=== PATIENT | male | born 1945 | race African-American/Black ===

== ENCOUNTER 2017-04-18 14:27 | Inpatient (IN) | payer MEDICARE, MEDICAID ==
[~2017-04-18] VITALS: Ht 170.2 cm; Wt 78.1 kg
[~2017-04-18 14:27] MED LIST: ATOR40TA70 PO; CITA20TA19 PO; CLON0.1T14 PO; COR12 PO; HYDR-3927 PO; Isosorb Dinit/Hydralazine Hcl PO; LEVO250T2 IV; LEVVL SUBCUT; LINA5TAB PO; PRO1 PO; TAMS0.4C31 PO; [UNRECOGNIZED DRUG - CODE]
[2017-04-18] MEDS ORDERED: SODIUM CHLORIDE 0.9% 1,000 ML IV ONE (14:52)
[2017-04-18] MEDS ORDERED: SODIUM CHLORIDE 0.9% 1000ML BAG (SEPSIS BOLUS) IV ONE (15:00)
[2017-04-18 15:14] LABS: CHLORIDE 113 mEq/L (98-107)
[2017-04-18 15:15] LABS: PROTHROMBIN TIME 10.2 sec (9.4-11.6)
[2017-04-18 15:20] LABS: RED BLOOD CELL COUNT 3.83 mill/uL (4.7-6.1)
[2017-04-18 15:21] LABS: BASOPHILS % 0.7 % (0.0-2.0); EOSINOPHILS % 1.9 % (0.0-5.0); HEMATOCRIT. 34.4 % (42.0-52.0); HEMOGLOBIN. 11.4 g/dL (14.0-18.0); LYMPHOCYTES % 11.5 % (20.0-50.0); MEAN CORPUSCULAR HEMOGLOBIN 29.8 pg (28.0-32.0); MEAN CORPUSCULAR VOLUME 89.7 fL (80.0-94.0); MEAN PLATELET VOLUME 9.4 fl (7.4-10.4); MONOCYTES % 8.9 % (2.0-8.0); PLATELET 161 x1000/uL (130-400); RED CELL DISTRIBUTION WIDTH 13.8 % (11.6-14.6)
[2017-04-18 15:22] LABS: CARBON DIOXIDE 18 mEq/L (21-32)
[2017-04-18] MEDS ORDERED: ACETAMINOPHEN 325MG TABLET PO ONE (15:45)
[2017-04-18 18:23] LABS: CLARITY URINE CLEAR (CLEAR); COLOR URINE YELLOW (YELLOW); GLUCOSE URINE 1+ (NEGATIVE); KETONES URINE NEGATIVE (NEGATIVE); LEUKOCYTE ESTERASE URINE 1+ (NEGATIVE); NITRITE URINE NEGATIVE (NEGATIVE); OCCULT BLOOD URINE 1+ (NEGATIVE); PROTEIN URINE TRACE (NEGATIVE); SPECIFIC GRAVITY URINE 1.014 (1.005-1.030)
[2017-04-18] MEDS ORDERED: CEFTRIAXONE 1 G PREMIX 50 ML IV ONE (19:30)
[2017-04-18 21:00] VITALS: BP 135/85
[2017-04-18 21:44] VITALS: BP 129/76
[2017-04-18 22:00] VITALS: BP 120/62
[2017-04-18] MEDS ORDERED: FOLIC ACID 1 MG, THIAMINE HCL 100 MG, MVI, ADULT NO.1 10 ML in SODIUM CHLORIDE 0.45% 1,... IV NR ×4 (22:45)
[2017-04-18] MEDS ORDERED: DEXTROSE 50% WATER 50ML SYRINGE IV PRN (22:45)
[2017-04-18] MEDS: FUROSEMIDE 20MG/2ML VIAL IVP SCH (23:43)
[2017-04-19] VITALS (12 sets, daily range): BP systolic 99–141; BP diastolic 56–81
[2017-04-19] MEDS: NIFEDIPINE 10MG CAPSULE PO SCH ×3 (06:08→22:00)
[2017-04-19] MEDS: BLOOD SUGAR DIAGNOSTIC STRIP TEST SCH ×4 (06:08→21:06)
[2017-04-19 07:03] LABS: HEMATOCRIT 34.8 % (42.0-52.0); HEMOGLOBIN 11.5 g/dL (14.0-18.0); MEAN CORPUSCULAR HEMOGLOBIN 29.9 pg (28.0-32.0); MEAN CORPUSCULAR VOLUME 90.4 fL (80.0-94.0); PLATELET 147 x1000/uL (130-400); RED BLOOD CELL COUNT 3.85 mill/uL (4.7-6.1); RED CELL DISTRIBUTION WIDTH 13.8 % (11.6-14.6)
[2017-04-19 07:39] LABS: CHLORIDE 113 mEq/L (98-107)
[2017-04-19 08:00] LABS: CARBON DIOXIDE 19 mEq/L (21-32)
[2017-04-19] MEDS ORDERED: DOCUSATE SODIUM 100MG CAPSULE PO PRN (08:30)
[2017-04-19] MEDS ORDERED: ENOXAPARIN 40MG/0.4ML SYR SUBCUT SCH (08:30)
[2017-04-19] MEDS ORDERED: MAGNESIUM/ALUMINUM HYDROXIDE/SIMETHICONE 30ML UDC PO PRN (08:30)
[2017-04-19] MEDS ORDERED: ONDANSETRON HCL 4MG/2ML VIAL IV PRN (08:30)
[2017-04-19] MEDS: FAMOTIDINE 20MG/2ML VIAL IV SCH (08:53)
[2017-04-19] MEDS: ISOSORB DINIT/HYDRALAZINE HCL 20/37.5MG TABLET PO SCH ×2 (08:53→21:00)
[2017-04-19] MEDS: FUROSEMIDE 20MG/2ML VIAL IVP SCH (08:53)
[2017-04-19] MEDS: TAMSULOSIN HCL 0.4MG SR CAPSULE PO SCH (08:54)
[2017-04-19] MEDS: CARVEDILOL 12.5MG TABLET PO SCH ×2 (08:54→21:00)
[2017-04-19] MEDS: DOCUSATE SODIUM 100MG CAPSULE PO SCH ×2 (08:54→17:10)
[2017-04-19] MEDS: LINAGLIPTIN 5MG TABLET PO SCH (08:54)
[2017-04-19] MEDS: ENOXAPARIN 30MG/0.3ML SYR SUBCUT SCH (08:55)
[2017-04-19] MEDS: INSULIN LISPRO 100 UNITS/ML SUBCUT SCH ×4 (08:57→21:07)
[2017-04-19] MEDS ORDERED: PANTOPRAZOLE SODIUM 40 MG/VIAL IV SCH (09:00)
[2017-04-19] MEDS ORDERED: ENOXAPARIN 30MG/0.3ML SYR SUBCUT SCH (09:00)
[2017-04-19] MEDS: CITALOPRAM HYDROBROMIDE 20MG TABLET PO SCH (11:36)
[2017-04-19] MEDS: AMMONIUM LACTATE 12% LOTION 240ML TOP SCH ×2 (11:37→17:10)
[2017-04-19 16:12] LABS: CREATINE KINASE MB FRACTION 2.4 ng/mL (0.5-3.6); TROPONIN I 0.07 ng/mL (0.00-0.04)
[2017-04-19] MEDS ORDERED: REGADENOSON 0.4 MG/5 ML IV NR (18:15)
[2017-04-19] MEDS: ATORVASTATIN CALCIUM 40MG TABLET PO SCH (21:06)
[2017-04-19] MEDS: INSULIN DETEMIR UD 100 UNITS/ML SYR SUBCUT SCH (21:08)
[2017-04-20] VITALS (23 sets, daily range): BP systolic 70–140; BP diastolic 47–80
[2017-04-20 00:26] LABS: TROPONIN I 0.04 ng/mL (0.00-0.04)
[2017-04-20 00:27] LABS: CREATINE KINASE MB FRACTION 1.9 ng/mL (0.5-3.6)
[2017-04-20] MEDS: BLOOD SUGAR DIAGNOSTIC STRIP TEST SCH ×4 (06:19→21:00)
[2017-04-20] MEDS: NIFEDIPINE 10MG CAPSULE PO SCH ×3 (06:19→21:03)
[2017-04-20] MEDS: INSULIN LISPRO 100 UNITS/ML SUBCUT SCH ×4 (07:20→21:29)
[2017-04-20 07:23] LABS: PROTHROMBIN TIME 10.7 sec (9.4-11.6)
[2017-04-20 07:39] LABS: CARBON DIOXIDE 23 mEq/L (21-32); CHLORIDE 111 mEq/L (98-107)
[2017-04-20 07:59] LABS: BASOPHILS % 0.8 % (0.0-2.0); EOSINOPHILS % 3.3 % (0.0-5.0); HEMATOCRIT. 32.1 % (42.0-52.0); HEMOGLOBIN. 10.7 g/dL (14.0-18.0); LYMPHOCYTES % 15.6 % (20.0-50.0); MEAN CORPUSCULAR HEMOGLOBIN 30.1 pg (28.0-32.0); MEAN CORPUSCULAR VOLUME 90.3 fL (80.0-94.0); MEAN PLATELET VOLUME 10.2 fl (7.4-10.4); MONOCYTES % 10.7 % (2.0-8.0); NEUTROPHILS % 69.6 % (40.0-76.0); PLATELET 160 x1000/uL (130-400); RED BLOOD CELL COUNT 3.56 mill/uL (4.7-6.1)
[2017-04-20] MEDS ORDERED: REGADENOSON 0.4 MG/5 ML IV ONE (08:58)
[2017-04-20] MEDS: AMMONIUM LACTATE 12% LOTION 240ML TOP SCH ×2 (09:00→17:12)
[2017-04-20] MEDS: FAMOTIDINE 20MG/2ML VIAL IV SCH (09:00)
[2017-04-20] MEDS: DOCUSATE SODIUM 100MG CAPSULE PO SCH ×2 (09:00→17:00)
[2017-04-20] MEDS: CITALOPRAM HYDROBROMIDE 20MG TABLET PO SCH (09:00)
[2017-04-20] MEDS: CARVEDILOL 12.5MG TABLET PO SCH ×2 (09:00→21:00)
[2017-04-20] MEDS: TAMSULOSIN HCL 0.4MG SR CAPSULE PO SCH (09:00)
[2017-04-20] MEDS: ISOSORB DINIT/HYDRALAZINE HCL 20/37.5MG TABLET PO SCH ×2 (09:00→21:00)
[2017-04-20] MEDS: ENOXAPARIN 30MG/0.3ML SYR SUBCUT SCH (09:00)
[2017-04-20] MEDS: LINAGLIPTIN 5MG TABLET PO SCH (09:00)
[2017-04-20] MEDS: FUROSEMIDE 20MG/2ML VIAL IVP SCH (09:00)
[2017-04-20] MEDS ORDERED: MANNITOL 12.5G (25%) VIAL 50ML IV NR (11:45)
[2017-04-20 12:48] LABS: HEPATITIS B SURFACE ANTIGEN NEGATIVE
[2017-04-20] MEDS ORDERED: CEFAZOLIN 1000MG PREMIX 50 ML IV ONE ×2 (13:13→13:15)
[2017-04-20] MEDS ORDERED: LIDOCAINE HCL 1% 20ML VIAL (Pyxis) INJ ONE (13:13)
[2017-04-20] MEDS ORDERED: SODIUM BICARBONATE 4% (2.4MEQ) 5ML VIAL IV ONE (13:13)
[2017-04-20] MEDS ORDERED: FENTANYL CITRATE/PF 50MCG/ML 2ML VIAL ONE (14:03)
[2017-04-20] MEDS: SODIUM CHLORIDE 0.9% 1,000 ML IV SCH (20:51)
[2017-04-20] MEDS: ATORVASTATIN CALCIUM 40MG TABLET PO SCH (21:28)
[2017-04-20] MEDS: INSULIN DETEMIR UD 100 UNITS/ML SYR SUBCUT SCH (22:27)
[2017-04-21] VITALS (13 sets, daily range): BP systolic 92–130; BP diastolic 50–80
[2017-04-21] MEDS ORDERED: AMPICILLIN SOD/SULBACTAM NA 1.5 G in SODIUM CHLORIDE 0.9% 50 ML IV SCH (00:15)
[2017-04-21] MEDS: AMPICILLIN SOD IV SCH (02:05)
[2017-04-21] MEDS: SULBACTAM NA IV SCH (02:05)
[2017-04-21] MEDS: SODIUM CHLORIDE 0.9% IV SCH (02:05)
[2017-04-21] MEDS: ACETAMINOPHEN 325MG TABLET PO PRN (05:22)
[2017-04-21] MEDS: SODIUM CHLORIDE 0.9% 1,000 ML IV SCH ×2 (06:39→14:46)
[2017-04-21 06:40] LABS: PROTHROMBIN TIME 10.5 sec (9.4-11.6)
[2017-04-21] MEDS: NIFEDIPINE 10MG CAPSULE PO SCH (06:40)
[2017-04-21] MEDS: BLOOD SUGAR DIAGNOSTIC STRIP TEST SCH ×4 (06:40→20:39)
[2017-04-21] MEDS: INSULIN LISPRO 100 UNITS/ML SUBCUT SCH ×7 (06:50→20:39)
[2017-04-21 07:02] LABS: BASOPHILS % 0.7 % (0.0-2.0); EOSINOPHILS % 2.3 % (0.0-5.0); HEMATOCRIT. 33.6 % (42.0-52.0); HEMOGLOBIN. 11.2 g/dL (14.0-18.0); LYMPHOCYTES % 13.6 % (20.0-50.0); MEAN CORPUSCULAR HEMOGLOBIN 29.8 pg (28.0-32.0); MEAN CORPUSCULAR VOLUME 89.6 fL (80.0-94.0); MEAN PLATELET VOLUME 10.1 fl (7.4-10.4); MONOCYTES % 8.7 % (2.0-8.0); NEUTROPHILS % 74.7 % (40.0-76.0); PLATELET 177 x1000/uL (130-400); RED BLOOD CELL COUNT 3.75 mill/uL (4.7-6.1); RED CELL DISTRIBUTION WIDTH 13.8 % (11.6-14.6)
[2017-04-21 07:18] LABS: CHLORIDE 111 mEq/L (98-107)
[2017-04-21 07:30] LABS: CARBON DIOXIDE 20 mEq/L (21-32)
[2017-04-21] MEDS: ISOSORB DINIT/HYDRALAZINE HCL 20/37.5MG TABLET PO SCH ×2 (09:00→21:17)
[2017-04-21] MEDS: FAMOTIDINE 20MG/2ML VIAL IV SCH (09:20)
[2017-04-21] MEDS: CARVEDILOL 12.5MG TABLET PO SCH ×2 (09:21→21:00)
[2017-04-21] MEDS: TAMSULOSIN HCL 0.4MG SR CAPSULE PO SCH (09:22)
[2017-04-21] MEDS: CITALOPRAM HYDROBROMIDE 20MG TABLET PO SCH (09:22)
[2017-04-21] MEDS: FOLIC ACID/VITAMIN B COMP W-C TABLET PO SCH (09:23)
[2017-04-21] MEDS: LINAGLIPTIN 5MG TABLET PO SCH (09:23)
[2017-04-21] MEDS: DOCUSATE SODIUM 100MG CAPSULE PO SCH ×2 (09:23→17:05)
[2017-04-21] MEDS: ENOXAPARIN 30MG/0.3ML SYR SUBCUT SCH (09:24)
[2017-04-21] MEDS: AMMONIUM LACTATE 12% LOTION 240ML TOP SCH ×2 (09:25→17:07)
[2017-04-21] MEDS: ATORVASTATIN CALCIUM 40MG TABLET PO SCH (20:05)
[2017-04-21] MEDS: INSULIN DETEMIR UD 100 UNITS/ML SYR SUBCUT SCH (21:18)
[2017-04-22] VITALS (12 sets, daily range): BP systolic 92–142; BP diastolic 48–88
[2017-04-22] MEDS: SULBACTAM NA IV SCH (02:22)
[2017-04-22] MEDS: AMPICILLIN SOD IV SCH (02:22)
[2017-04-22] MEDS: SODIUM CHLORIDE 0.9% IV SCH (02:22)
[2017-04-22] MEDS: BLOOD SUGAR DIAGNOSTIC STRIP TEST SCH ×4 (06:19→20:52)
[2017-04-22] MEDS: INSULIN LISPRO 100 UNITS/ML SUBCUT SCH ×8 (06:19→20:52)
[2017-04-22] MEDS: SODIUM CHLORIDE 0.9% 1,000 ML IV SCH ×2 (06:22→09:20)
[2017-04-22] MEDS: HYDROCODONE/ACETAMINOPHEN 5/325MG TABLET PO PRN (06:23)
[2017-04-22 06:53] LABS: INR 1.1
[2017-04-22 07:00] LABS: BASOPHILS % 0.4 % (0.0-2.0); EOSINOPHILS % 1.8 % (0.0-5.0); HEMATOCRIT. 28.9 % (42.0-52.0); HEMOGLOBIN. 9.6 g/dL (14.0-18.0); LYMPHOCYTES % 8.3 % (20.0-50.0); MEAN CORPUSCULAR HEMOGLOBIN 29.9 pg (28.0-32.0); MEAN CORPUSCULAR VOLUME 90.1 fL (80.0-94.0); MEAN PLATELET VOLUME 9.4 fl (7.4-10.4); MONOCYTES % 7.7 % (2.0-8.0); NEUTROPHILS % 81.8 % (40.0-76.0); PLATELET 151 x1000/uL (130-400); RED CELL DISTRIBUTION WIDTH 13.9 % (11.6-14.6)
[2017-04-22 07:39] LABS: CHLORIDE 118 mEq/L (98-107)
[2017-04-22 07:48] LABS: CARBON DIOXIDE 18 mEq/L (21-32)
[2017-04-22] MEDS: CITALOPRAM HYDROBROMIDE 20MG TABLET PO SCH (08:14)
[2017-04-22] MEDS: FOLIC ACID/VITAMIN B COMP W-C TABLET PO SCH (08:14)
[2017-04-22] MEDS: LINAGLIPTIN 5MG TABLET PO SCH (08:14)
[2017-04-22] MEDS: FAMOTIDINE 20MG/2ML VIAL IV SCH (08:14)
[2017-04-22] MEDS: AMMONIUM LACTATE 12% LOTION 240ML TOP SCH ×2 (08:15→16:31)
[2017-04-22] MEDS: CARVEDILOL 12.5MG TABLET PO SCH ×2 (08:17→20:52)
[2017-04-22] MEDS: ISOSORB DINIT/HYDRALAZINE HCL 20/37.5MG TABLET PO SCH ×2 (08:17→20:52)
[2017-04-22] MEDS: DOCUSATE SODIUM 100MG CAPSULE PO SCH ×2 (08:17→17:41)
[2017-04-22] MEDS: TAMSULOSIN HCL 0.4MG SR CAPSULE PO SCH (09:02)
[2017-04-22] MEDS: ENOXAPARIN 30MG/0.3ML SYR SUBCUT SCH (09:02)
[2017-04-22] MEDS: ATORVASTATIN CALCIUM 40MG TABLET PO SCH (20:51)
[2017-04-22] MEDS: ACETAMINOPHEN 325MG TABLET PO PRN (20:51)
[2017-04-22] MEDS: INSULIN DETEMIR UD 100 UNITS/ML SYR SUBCUT SCH (22:17)
[2017-04-23] VITALS (13 sets, daily range): BP systolic 88–149; BP diastolic 49–75
[2017-04-23] MEDS: SODIUM CHLORIDE 0.9% IV SCH (01:09)
[2017-04-23] MEDS: AMPICILLIN SOD IV SCH (01:09)
[2017-04-23] MEDS: SULBACTAM NA IV SCH (01:09)
[2017-04-23] MEDS: BLOOD SUGAR DIAGNOSTIC STRIP TEST SCH ×4 (06:27→21:43)
[2017-04-23] MEDS: INSULIN LISPRO 100 UNITS/ML SUBCUT SCH ×7 (06:28→21:42)
[2017-04-23 06:40] LABS: INR 1.1; PROTHROMBIN TIME 11.7 sec (9.4-11.6)
[2017-04-23 07:02] LABS: BASOPHILS % 0.3 % (0.0-2.0); EOSINOPHILS % 2.3 % (0.0-5.0); HEMATOCRIT. 25.6 % (42.0-52.0); HEMOGLOBIN. 8.5 g/dL (14.0-18.0); LYMPHOCYTES % 9.7 % (20.0-50.0); MEAN CORPUSCULAR HEMOGLOBIN 29.8 pg (28.0-32.0); MEAN CORPUSCULAR VOLUME 90.1 fL (80.0-94.0); MEAN PLATELET VOLUME 9.6 fl (7.4-10.4); MONOCYTES % 10.6 % (2.0-8.0); NEUTROPHILS % 77.1 % (40.0-76.0); PLATELET 138 x1000/uL (130-400); RED BLOOD CELL COUNT 2.85 mill/uL (4.7-6.1); RED CELL DISTRIBUTION WIDTH 13.6 % (11.6-14.6)
[2017-04-23 07:50] LABS: CARBON DIOXIDE 30 mEq/L (21-32); CHLORIDE 108 mEq/L (98-107)
[2017-04-23] MEDS: CITALOPRAM HYDROBROMIDE 20MG TABLET PO SCH (08:12)
[2017-04-23] MEDS: TAMSULOSIN HCL 0.4MG SR CAPSULE PO SCH (08:12)
[2017-04-23] MEDS: FAMOTIDINE 20MG/2ML VIAL IV SCH (08:12)
[2017-04-23] MEDS: AMMONIUM LACTATE 12% LOTION 240ML TOP SCH ×2 (08:13→17:12)
[2017-04-23] MEDS: LINAGLIPTIN 5MG TABLET PO SCH (08:13)
[2017-04-23] MEDS: DOCUSATE SODIUM 100MG CAPSULE PO SCH ×2 (08:13→17:10)
[2017-04-23] MEDS: ENOXAPARIN 30MG/0.3ML SYR SUBCUT SCH (08:13)
[2017-04-23] MEDS: FOLIC ACID/VITAMIN B COMP W-C TABLET PO SCH (08:13)
[2017-04-23] MEDS: CARVEDILOL 12.5MG TABLET PO SCH ×2 (09:00→21:43)
[2017-04-23] MEDS: ISOSORB DINIT/HYDRALAZINE HCL 20/37.5MG TABLET PO SCH ×2 (09:00→21:43)
[2017-04-23] MEDS: HYDROCODONE/ACETAMINOPHEN 5/325MG TABLET PO PRN (19:50)
[2017-04-23] MEDS ORDERED: EPOETIN ALFA 4000UNITS/ML VIAL SUBCUT SCH (21:00)
[2017-04-23] MEDS: INSULIN DETEMIR UD 100 UNITS/ML SYR SUBCUT SCH (21:41)
[2017-04-23] MEDS: ATORVASTATIN CALCIUM 40MG TABLET PO SCH (21:42)
[2017-04-24] VITALS (15 sets, daily range): BP systolic 81–157; BP diastolic 45–90
[2017-04-24] MEDS: AMPICILLIN SOD IV SCH (01:29)
[2017-04-24] MEDS: SULBACTAM NA IV SCH (01:29)
[2017-04-24] MEDS: SODIUM CHLORIDE 0.9% IV SCH (01:29)
[2017-04-24 05:44] LABS: BASOPHILS % 0.3 % (0.0-2.0); EOSINOPHILS % 3.4 % (0.0-5.0); HEMATOCRIT. 27.7 % (42.0-52.0); HEMOGLOBIN. 9.1 g/dL (14.0-18.0); LYMPHOCYTES % 10.1 % (20.0-50.0); MEAN CORPUSCULAR HEMOGLOBIN 29.8 pg (28.0-32.0); MEAN CORPUSCULAR VOLUME 90.5 fL (80.0-94.0); MONOCYTES % 12.3 % (2.0-8.0); NEUTROPHILS % 73.9 % (40.0-76.0); PLATELET 157 x1000/uL (130-400); RED BLOOD CELL COUNT 3.06 mill/uL (4.7-6.1); RED CELL DISTRIBUTION WIDTH 13.7 % (11.6-14.6)
[2017-04-24] MEDS: BLOOD SUGAR DIAGNOSTIC STRIP TEST SCH ×4 (06:54→21:13)
[2017-04-24] MEDS: INSULIN LISPRO 100 UNITS/ML SUBCUT SCH ×7 (06:55→21:24)
[2017-04-24] MEDS: FOLIC ACID/VITAMIN B COMP W-C TABLET PO SCH (08:50)
[2017-04-24] MEDS: LINAGLIPTIN 5MG TABLET PO SCH (08:50)
[2017-04-24] MEDS: ISOSORB DINIT/HYDRALAZINE HCL 20/37.5MG TABLET PO SCH ×2 (08:50→21:00)
[2017-04-24] MEDS: CARVEDILOL 12.5MG TABLET PO SCH ×2 (08:50→21:00)
[2017-04-24] MEDS: AMMONIUM LACTATE 12% LOTION 240ML TOP SCH ×2 (08:50→17:10)
[2017-04-24] MEDS: TAMSULOSIN HCL 0.4MG SR CAPSULE PO SCH (08:51)
[2017-04-24] MEDS: FAMOTIDINE 20MG/2ML VIAL IV SCH (08:51)
[2017-04-24] MEDS: ENOXAPARIN 30MG/0.3ML SYR SUBCUT SCH (08:51)
[2017-04-24] MEDS: CITALOPRAM HYDROBROMIDE 20MG TABLET PO SCH (08:51)
[2017-04-24] MEDS: DOCUSATE SODIUM 100MG CAPSULE PO SCH ×2 (08:51→17:16)
[2017-04-24] MEDS: ATORVASTATIN CALCIUM 40MG TABLET PO SCH (21:25)
[2017-04-24] MEDS: INSULIN DETEMIR UD 100 UNITS/ML SYR SUBCUT SCH (21:25)
[2017-04-25] VITALS (12 sets, daily range): BP systolic 114–157; BP diastolic 58–96
[2017-04-25] MEDS: AMPICILLIN SOD IV SCH (01:59)
[2017-04-25] MEDS: SODIUM CHLORIDE 0.9% IV SCH (01:59)
[2017-04-25] MEDS: SULBACTAM NA IV SCH (01:59)
[2017-04-25] MEDS: BLOOD SUGAR DIAGNOSTIC STRIP TEST SCH ×3 (06:46→17:06)
[2017-04-25] MEDS: INSULIN LISPRO 100 UNITS/ML SUBCUT SCH ×5 (06:52→17:06)
[2017-04-25 07:19] LABS: BASOPHILS % 0.4 % (0.0-2.0); EOSINOPHILS % 3.7 % (0.0-5.0); HEMATOCRIT. 27.5 % (42.0-52.0); HEMOGLOBIN. 9.1 g/dL (14.0-18.0); MEAN CORPUSCULAR HEMOGLOBIN 29.9 pg (28.0-32.0); MEAN CORPUSCULAR VOLUME 90.7 fL (80.0-94.0); MONOCYTES % 13.8 % (2.0-8.0); NEUTROPHILS % 67.1 % (40.0-76.0); PLATELET 177 x1000/uL (130-400); RED BLOOD CELL COUNT 3.03 mill/uL (4.7-6.1); RED CELL DISTRIBUTION WIDTH 13.4 % (11.6-14.6)
[2017-04-25] MEDS: CARVEDILOL 12.5MG TABLET PO SCH ×2 (09:00→13:09)
[2017-04-25] MEDS: ISOSORB DINIT/HYDRALAZINE HCL 20/37.5MG TABLET PO SCH (09:00)
[2017-04-25] MEDS: AMMONIUM LACTATE 12% LOTION 240ML TOP SCH ×2 (11:25→16:36)
[2017-04-25] MEDS: FAMOTIDINE 20MG/2ML VIAL IV SCH (11:26)
[2017-04-25] MEDS: CITALOPRAM HYDROBROMIDE 20MG TABLET PO SCH (11:26)
[2017-04-25] MEDS: LINAGLIPTIN 5MG TABLET PO SCH (11:26)
[2017-04-25] MEDS: FOLIC ACID/VITAMIN B COMP W-C TABLET PO SCH (11:26)
[2017-04-25] MEDS: DOCUSATE SODIUM 100MG CAPSULE PO SCH ×2 (11:26→16:36)
[2017-04-25] MEDS: ENOXAPARIN 30MG/0.3ML SYR SUBCUT SCH (11:27)
[2017-04-25] MEDS: TAMSULOSIN HCL 0.4MG SR CAPSULE PO SCH (11:27)
[2017-05-31] MEDS ORDERED: METR250T PO (17:17)
== END 2017-04-25 17:07 | DRG 673 ==
LOC: ER 14:29 → ENRESERV 16:18 → UNDOADMIN 19:46 → 3WST 19:46 → EDBEDREQTM 19:56 → EDBEDREQ 19:56 → EDBEDREQSVC 19:56 → 3WST 04-20 13:16
PROVIDERS: ADMIT Internal Medicine; ATTEND Internal Medicine
PROC: 02HV33Z Insertion of Infusion Device into Superior Vena Cava, Percutaneous Approach (ICD-10-PCS; principal; 2017-04-20)
PROC: B5181ZA Fluoroscopy of Superior Vena Cava using Low Osmolar Contrast, Guidance (ICD-10-PCS; 2017-04-20)
PROC: B548ZZA Ultrasonography of Superior Vena Cava, Guidance (ICD-10-PCS; 2017-04-20)
PROC: 5A1D60Z (ICD-10-PCS; 2017-04-22)
PROC: 0JH63XZ Insertion of Tunneled Vascular Access Device into Chest Subcutaneous Tissue and Fascia, Percutaneous Approach (ICD-10-PCS; 2017-04-22)
DX: N17.9 Acute kidney failure, unspecified (principal); I50.23 Acute on chronic systolic (congestive) heart failure; E46 Unspecified protein-calorie malnutrition; F03.90 Unspecified dementia, unspecified severity, without behavioral disturbance, psychotic disturbance, mood disturbance, and anxiety; I13.2 Hypertensive heart and chronic kidney disease with heart failure and with stage 5 chronic kidney disease, or end stage renal disease; I69.351 Hemiplegia and hemiparesis following cerebral infarction affecting right dominant side; N18.6 End stage renal disease; E11.22 Type 2 diabetes mellitus with diabetic chronic kidney disease; D64.9 Anemia, unspecified; E11.65 Type 2 diabetes mellitus with hyperglycemia; I87.8 Other specified disorders of veins; E11.649 Type 2 diabetes mellitus with hypoglycemia without coma; E78.5 Hyperlipidemia, unspecified; G40.909 Epilepsy, unspecified, not intractable, without status epilepticus; G89.29 Other chronic pain; G90.8 Other disorders of autonomic nervous system; E11.40 Type 2 diabetes mellitus with diabetic neuropathy, unspecified; F41.9 Anxiety disorder, unspecified; I25.10 Atherosclerotic heart disease of native coronary artery without angina pectoris; K21.9 Gastro-esophageal reflux disease without esophagitis; M19.90 Unspecified osteoarthritis, unspecified site; N40.0 Benign prostatic hyperplasia without lower urinary tract symptoms; I69.322 Dysarthria following cerebral infarction; Z99.2 Dependence on renal dialysis; Z85.528 Personal history of other malignant neoplasm of kidney; Z87.891 Personal history of nicotine dependence; Z91.19 Patient's noncompliance with other medical treatment and regimen; Z98.1 Arthrodesis status; Z88.6 Allergy status to analgesic agent; Z88.8 Allergy status to other drugs, medicaments and biological substances; Z79.4 Long term (current) use of insulin; Z79.2 Long term (current) use of antibiotics; Z79.899 Other long term (current) drug therapy; Z83.3 Family history of diabetes mellitus; Z82.49 Family history of ischemic heart disease and other diseases of the circulatory system; Z82.61 Family history of arthritis
CPT/HCPCS: 36415; 36558; 70551; 71010; 76700; 76937; 77001; 78452; 80048; 80053; 81001; 82553; 82962; 83605; 83690; 83970; 84443; 84484; 85025; 85027; 85610; 85730; 86803; 87040; 87086; 87340; 93005; 93017; 93306; 93970; 96360; 96361; 97116; 97162; 97166; 97530; 99285; A9500; C1750; J0295; J0690; J0696; J1642; J1650; J1815; J1940; J2150; J2405; J2785; J3010; J3411; J3490; J7030; J7050

== ENCOUNTER 2017-04-25 17:15 | Inpatient (IN) | payer MEDICARE, MEDICAID ==
[~2017-04-25] VITALS: Ht 170.2 cm; Wt 79.8 kg
[2017-04-25 17:30] VITALS: BP 117/78
[2017-04-25] MEDS ORDERED: ONDANSETRON HCL 4MG TABLET PO PRN (20:00)
[2017-04-25] MEDS ORDERED: DEXTROSE 50% WATER 50ML SYRINGE IV PRN ×2 (20:00)
[2017-04-25] MEDS ORDERED: DOCUSATE SODIUM 100MG CAPSULE PO PRN (20:00)
[2017-04-25] MEDS: BLOOD SUGAR DIAGNOSTIC STRIP TEST SCH (21:00)
[2017-04-25] MEDS: INSULIN LISPRO 100 UNITS/ML SUBCUT SCH (21:00)
[2017-04-25] MEDS ORDERED: BLOOD SUGAR DIAGNOSTIC STRIP TEST SCH (21:00)
[2017-04-25 22:00] VITALS: BP 117/78
[2017-04-25] MEDS ORDERED: INSULIN DETEMIR UD 100 UNITS/ML SYR SUBCUT SCH (22:00)
[2017-04-25] MEDS: ATORVASTATIN CALCIUM 40MG TABLET PO SCH (23:16)
[2017-04-25] MEDS: CARVEDILOL 12.5MG TABLET PO SCH (23:16)
[2017-04-25] MEDS: ISOSORB DINIT/HYDRALAZINE HCL 20/37.5MG TABLET PO SCH (23:35)
[2017-04-26] MEDS: AMPICILLIN SOD/SULBACTAM NA 3 G in SODIUM CHLORIDE 0.9% 100 ML IV SCH (03:04)
[2017-04-26] MEDS: BLOOD SUGAR DIAGNOSTIC STRIP TEST SCH ×4 (06:30→21:28)
[2017-04-26 06:40] LABS: INR 1.1; PARTIAL THROMBOPLASTIN TIME 25.7 sec (23.4-31.0)
[2017-04-26 07:32] LABS: CHLORIDE 107 mEq/L (98-107)
[2017-04-26] MEDS: INSULIN LISPRO 100 UNITS/ML SUBCUT SCH ×7 (07:39→21:00)
[2017-04-26 07:48] LABS: CARBON DIOXIDE 26 mEq/L (21-32); HDL CHOLESTEROL 35 mg/dL (40-59); LDL CHOLESTEROL 47 mg/dL (5-100); T4 FREE 1.37 ng/dL (0.76-1.46)
[2017-04-26 08:00] VITALS: BP 121/66
[2017-04-26 08:05] LABS: BASOPHILS % 0.4 % (0.0-2.0); EOSINOPHILS % 4.5 % (0.0-5.0); HEMATOCRIT. 26.4 % (42.0-52.0); HEMOGLOBIN. 8.7 g/dL (14.0-18.0); LYMPHOCYTES % 13.3 % (20.0-50.0); MEAN CORPUSCULAR HEMOGLOBIN 29.9 pg (28.0-32.0); MEAN CORPUSCULAR VOLUME 90.6 fL (80.0-94.0); MEAN PLATELET VOLUME 9.4 fl (7.4-10.4); MONOCYTES % 12.7 % (2.0-8.0); NEUTROPHILS % 69.1 % (40.0-76.0); PLATELET 198 x1000/uL (130-400); RED BLOOD CELL COUNT 2.92 mill/uL (4.7-6.1); RED CELL DISTRIBUTION WIDTH 13.5 % (11.6-14.6)
[2017-04-26] MEDS: FAMOTIDINE 20MG TABLET PO SCH (08:23)
[2017-04-26] MEDS: DOCUSATE SODIUM 100MG CAPSULE PO SCH ×2 (08:23→16:48)
[2017-04-26] MEDS: CITALOPRAM HYDROBROMIDE 20MG TABLET PO SCH (08:23)
[2017-04-26] MEDS: TAMSULOSIN HCL 0.4MG SR CAPSULE PO SCH (08:23)
[2017-04-26] MEDS: FOLIC ACID/VITAMIN B COMP W-C TABLET PO SCH (08:24)
[2017-04-26] MEDS: LINAGLIPTIN 5MG TABLET PO SCH (08:24)
[2017-04-26] MEDS: CARVEDILOL 12.5MG TABLET PO SCH ×2 (08:24→21:28)
[2017-04-26] MEDS: ENOXAPARIN 30MG/0.3ML SYR SUBCUT SCH (08:25)
[2017-04-26] MEDS: ISOSORB DINIT/HYDRALAZINE HCL 20/37.5MG TABLET PO SCH ×2 (08:27→21:27)
[2017-04-26] MEDS: AMMONIUM LACTATE 12% LOTION 240ML TOP SCH ×2 (08:27→16:48)
[2017-04-26 20:00] VITALS: BP 119/75
[2017-04-26] MEDS: ACETAMINOPHEN 325MG TABLET PO PRN (21:26)
[2017-04-26] MEDS: ATORVASTATIN CALCIUM 40MG TABLET PO SCH (21:28)
[2017-04-26] MEDS ORDERED: INSULIN DETEMIR UD 100 UNITS/ML SYR SUBCUT SCH (22:00)
[2017-04-27] MEDS: AMPICILLIN SOD/SULBACTAM NA 3 G in SODIUM CHLORIDE 0.9% 100 ML IV SCH (03:13)
[2017-04-27 06:30] LABS: BASOPHILS % 0.5 % (0.0-2.0); EOSINOPHILS % 3.8 % (0.0-5.0); HEMATOCRIT. 26.6 % (42.0-52.0); HEMOGLOBIN. 8.7 g/dL (14.0-18.0); LYMPHOCYTES % 13.4 % (20.0-50.0); MEAN CORPUSCULAR HEMOGLOBIN 29.7 pg (28.0-32.0); MEAN CORPUSCULAR VOLUME 90.6 fL (80.0-94.0); MEAN PLATELET VOLUME 9.1 fl (7.4-10.4); MONOCYTES % 13.6 % (2.0-8.0); NEUTROPHILS % 68.7 % (40.0-76.0); PLATELET 205 x1000/uL (130-400); RED BLOOD CELL COUNT 2.94 mill/uL (4.7-6.1); RED CELL DISTRIBUTION WIDTH 13.2 % (11.6-14.6)
[2017-04-27] MEDS: INSULIN LISPRO 100 UNITS/ML SUBCUT SCH ×7 (07:00→21:00)
[2017-04-27 07:07] LABS: CHLORIDE 108 mEq/L (98-107)
[2017-04-27 07:15] LABS: CARBON DIOXIDE 26 mEq/L (21-32)
[2017-04-27] MEDS: BLOOD SUGAR DIAGNOSTIC STRIP TEST SCH ×4 (07:26→20:28)
[2017-04-27 08:29] VITALS: BP 133/75
[2017-04-27] MEDS: ISOSORB DINIT/HYDRALAZINE HCL 20/37.5MG TABLET PO SCH ×2 (08:35→21:25)
[2017-04-27] MEDS: CITALOPRAM HYDROBROMIDE 20MG TABLET PO SCH (08:35)
[2017-04-27] MEDS: LINAGLIPTIN 5MG TABLET PO SCH (08:35)
[2017-04-27] MEDS: TAMSULOSIN HCL 0.4MG SR CAPSULE PO SCH (08:35)
[2017-04-27] MEDS: AMMONIUM LACTATE 12% LOTION 240ML TOP SCH ×2 (08:36→18:06)
[2017-04-27] MEDS: DOCUSATE SODIUM 100MG CAPSULE PO SCH ×2 (08:36→17:00)
[2017-04-27] MEDS: FAMOTIDINE 20MG TABLET PO SCH (08:36)
[2017-04-27] MEDS: CARVEDILOL 12.5MG TABLET PO SCH ×2 (08:36→21:26)
[2017-04-27] MEDS: ENOXAPARIN 30MG/0.3ML SYR SUBCUT SCH (08:36)
[2017-04-27] MEDS: FOLIC ACID/VITAMIN B COMP W-C TABLET PO SCH (08:43)
[2017-04-27 20:00] VITALS: BP 140/78
[2017-04-27] MEDS: ATORVASTATIN CALCIUM 40MG TABLET PO SCH (21:26)
[2017-04-27] MEDS: ACETAMINOPHEN 325MG TABLET PO PRN (21:29)
[2017-04-28] MEDS: AMPICILLIN SOD/SULBACTAM NA 3 G in SODIUM CHLORIDE 0.9% 100 ML IV SCH (02:06)
[2017-04-28] MEDS: BLOOD SUGAR DIAGNOSTIC STRIP TEST SCH ×4 (05:55→21:02)
[2017-04-28] MEDS: INSULIN LISPRO 100 UNITS/ML SUBCUT SCH ×7 (06:11→21:07)
[2017-04-28 07:02] VITALS: BP 125/63
[2017-04-28 07:03] VITALS: BP 121/75
[2017-04-28 07:05] LABS: BASOPHILS % 0.4 % (0.0-2.0); EOSINOPHILS % 3.5 % (0.0-5.0); HEMATOCRIT. 27.1 % (42.0-52.0); LYMPHOCYTES % 9.7 % (20.0-50.0); MEAN CORPUSCULAR HEMOGLOBIN 29.9 pg (28.0-32.0); MEAN CORPUSCULAR VOLUME 89.9 fL (80.0-94.0); MEAN PLATELET VOLUME 8.8 fl (7.4-10.4); MONOCYTES % 10.9 % (2.0-8.0); NEUTROPHILS % 75.5 % (40.0-76.0); PLATELET 223 x1000/uL (130-400); RED BLOOD CELL COUNT 3.01 mill/uL (4.7-6.1); RED CELL DISTRIBUTION WIDTH 13.7 % (11.6-14.6)
[2017-04-28] MEDS: ENOXAPARIN 30MG/0.3ML SYR SUBCUT SCH (08:21)
[2017-04-28] MEDS: LINAGLIPTIN 5MG TABLET PO SCH (08:21)
[2017-04-28] MEDS: FAMOTIDINE 20MG TABLET PO SCH (08:21)
[2017-04-28] MEDS: CITALOPRAM HYDROBROMIDE 20MG TABLET PO SCH (08:21)
[2017-04-28] MEDS: DOCUSATE SODIUM 100MG CAPSULE PO SCH ×2 (08:21→18:08)
[2017-04-28] MEDS: TAMSULOSIN HCL 0.4MG SR CAPSULE PO SCH (08:22)
[2017-04-28] MEDS: ISOSORB DINIT/HYDRALAZINE HCL 20/37.5MG TABLET PO SCH ×2 (08:50→21:01)
[2017-04-28] MEDS: CARVEDILOL 12.5MG TABLET PO SCH ×2 (08:52→21:02)
[2017-04-28] MEDS: FOLIC ACID/VITAMIN B COMP W-C TABLET PO SCH (09:06)
[2017-04-28] MEDS: AMMONIUM LACTATE 12% LOTION 240ML TOP SCH ×2 (09:06→18:08)
[2017-04-28 20:00] VITALS: BP 135/73
[2017-04-28] MEDS: ATORVASTATIN CALCIUM 40MG TABLET PO SCH (21:02)
[2017-04-29] MEDS: ACETAMINOPHEN 325MG TABLET PO PRN ×2 (01:33→19:53)
[2017-04-29] MEDS: BLOOD SUGAR DIAGNOSTIC STRIP TEST SCH ×4 (06:08→21:00)
[2017-04-29] MEDS: INSULIN LISPRO 100 UNITS/ML SUBCUT SCH ×7 (06:45→21:00)
[2017-04-29 07:49] LABS: HEMATOCRIT 25.4 % (42.0-52.0); HEMOGLOBIN 8.4 g/dL (14.0-18.0); MEAN CORPUSCULAR HEMOGLOBIN 29.9 pg (28.0-32.0); MEAN CORPUSCULAR VOLUME 90.1 fL (80.0-94.0); PLATELET 225 x1000/uL (130-400); RED BLOOD CELL COUNT 2.82 mill/uL (4.7-6.1); RED CELL DISTRIBUTION WIDTH 13.2 % (11.6-14.6)
[2017-04-29 08:00] VITALS: BP 109/68
[2017-04-29] MEDS: ISOSORB DINIT/HYDRALAZINE HCL 20/37.5MG TABLET PO SCH ×2 (08:28→21:00)
[2017-04-29] MEDS: CARVEDILOL 12.5MG TABLET PO SCH ×2 (08:29→21:00)
[2017-04-29] MEDS: FAMOTIDINE 20MG TABLET PO SCH (08:36)
[2017-04-29] MEDS: LINAGLIPTIN 5MG TABLET PO SCH (08:36)
[2017-04-29] MEDS: FOLIC ACID/VITAMIN B COMP W-C TABLET PO SCH (08:36)
[2017-04-29] MEDS: ENOXAPARIN 30MG/0.3ML SYR SUBCUT SCH (08:36)
[2017-04-29] MEDS: CITALOPRAM HYDROBROMIDE 20MG TABLET PO SCH (08:36)
[2017-04-29] MEDS: DOCUSATE SODIUM 100MG CAPSULE PO SCH ×2 (08:36→16:21)
[2017-04-29] MEDS: TAMSULOSIN HCL 0.4MG SR CAPSULE PO SCH (08:36)
[2017-04-29] MEDS: AMMONIUM LACTATE 12% LOTION 240ML TOP SCH ×2 (11:27→16:27)
[2017-04-29 19:52] VITALS: BP 125/70
[2017-04-29 20:00] VITALS: BP 125/70
[2017-04-29 21:00] VITALS: BP 120/70
[2017-04-29] MEDS ORDERED: EPOETIN ALFA 10000UNITS/ML VIAL SUBCUT NR (21:00)
[2017-04-29] MEDS: ATORVASTATIN CALCIUM 40MG TABLET PO SCH (22:20)
[2017-04-29] MEDS: INSULIN DETEMIR UD 100 UNITS/ML SYR SUBCUT SCH (22:31)
[2017-04-30] VITALS: BP 122/69
[2017-04-30] MEDS: BLOOD SUGAR DIAGNOSTIC STRIP TEST SCH ×4 (06:00→21:52)
[2017-04-30 06:25] LABS: HEMATOCRIT 26.3 % (42.0-52.0); HEMOGLOBIN 8.6 g/dL (14.0-18.0); MEAN CORPUSCULAR HEMOGLOBIN 29.6 pg (28.0-32.0); MEAN CORPUSCULAR VOLUME 90.5 fL (80.0-94.0); PLATELET 237 x1000/uL (130-400); RED CELL DISTRIBUTION WIDTH 13.6 % (11.6-14.6)
[2017-04-30] MEDS: INSULIN LISPRO 100 UNITS/ML SUBCUT SCH ×7 (06:54→22:14)
[2017-04-30 08:00] VITALS: BP 128/71
[2017-04-30] MEDS: CITALOPRAM HYDROBROMIDE 20MG TABLET PO SCH (08:18)
[2017-04-30] MEDS: ISOSORB DINIT/HYDRALAZINE HCL 20/37.5MG TABLET PO SCH ×2 (08:18→22:22)
[2017-04-30] MEDS: LINAGLIPTIN 5MG TABLET PO SCH (08:18)
[2017-04-30] MEDS: FOLIC ACID/VITAMIN B COMP W-C TABLET PO SCH (08:18)
[2017-04-30] MEDS: CARVEDILOL 12.5MG TABLET PO SCH ×2 (08:19→22:21)
[2017-04-30] MEDS: AMMONIUM LACTATE 12% LOTION 240ML TOP SCH ×2 (08:19→18:09)
[2017-04-30] MEDS: TAMSULOSIN HCL 0.4MG SR CAPSULE PO SCH (08:19)
[2017-04-30] MEDS: FAMOTIDINE 20MG TABLET PO SCH (08:19)
[2017-04-30] MEDS: ENOXAPARIN 30MG/0.3ML SYR SUBCUT SCH (08:19)
[2017-04-30] MEDS: DOCUSATE SODIUM 100MG CAPSULE PO SCH ×2 (08:20→17:00)
[2017-04-30 20:00] VITALS: BP 145/71
[2017-04-30] MEDS ORDERED: GENTAMICIN 80MG PREMIX 100 ML IV NR (20:00)
[2017-04-30] MEDS ORDERED: VANCOMYCIN 1 G PREMIX 200 ML IV NR (21:00)
[2017-04-30] MEDS: ATORVASTATIN CALCIUM 40MG TABLET PO SCH (21:55)
[2017-04-30] MEDS: INSULIN DETEMIR UD 100 UNITS/ML SYR SUBCUT SCH (22:13)
[2017-05-01 00:10] LABS: CLARITY URINE CLEAR (CLEAR); COLOR URINE YELLOW (YELLOW); GLUCOSE URINE 1+ (NEGATIVE); KETONES URINE NEGATIVE (NEGATIVE); LEUKOCYTE ESTERASE URINE TRACE (NEGATIVE); NITRITE URINE NEGATIVE (NEGATIVE); OCCULT BLOOD URINE NEGATIVE (NEGATIVE); PROTEIN URINE 1+ (NEGATIVE); SPECIFIC GRAVITY URINE 1.015 (1.005-1.030); UROBILINOGEN URINE 0.2 E.U./dL (0.2-1.0)
[2017-05-01] MEDS: BLOOD SUGAR DIAGNOSTIC STRIP TEST SCH ×4 (06:57→21:57)
[2017-05-01] MEDS: INSULIN LISPRO 100 UNITS/ML SUBCUT SCH ×7 (06:58→22:01)
[2017-05-01 07:12] LABS: BASOPHILS % 0.3 % (0.0-2.0); EOSINOPHILS % 2.2 % (0.0-5.0); HEMATOCRIT. 26.2 % (42.0-52.0); HEMOGLOBIN. 8.4 g/dL (14.0-18.0); LYMPHOCYTES % 7.1 % (20.0-50.0); MEAN CORPUSCULAR HEMOGLOBIN 29.1 pg (28.0-32.0); MEAN CORPUSCULAR VOLUME 90.8 fL (80.0-94.0); MEAN PLATELET VOLUME 8.6 fl (7.4-10.4); MONOCYTES % 9.7 % (2.0-8.0); NEUTROPHILS % 80.7 % (40.0-76.0); PLATELET 252 x1000/uL (130-400); RED BLOOD CELL COUNT 2.88 mill/uL (4.7-6.1); RED CELL DISTRIBUTION WIDTH 13.6 % (11.6-14.6)
[2017-05-01 07:25] LABS: CARBON DIOXIDE 25 mEq/L (21-32); CHLORIDE 109 mEq/L (98-107)
[2017-05-01 08:00] VITALS: BP 134/75
[2017-05-01] MEDS: DOCUSATE SODIUM 100MG CAPSULE PO SCH ×2 (09:00→17:00)
[2017-05-01] MEDS: LINAGLIPTIN 5MG TABLET PO SCH (09:30)
[2017-05-01] MEDS: ISOSORB DINIT/HYDRALAZINE HCL 20/37.5MG TABLET PO SCH ×2 (09:31→21:57)
[2017-05-01] MEDS: FOLIC ACID/VITAMIN B COMP W-C TABLET PO SCH (09:31)
[2017-05-01] MEDS: FAMOTIDINE 20MG TABLET PO SCH (09:31)
[2017-05-01] MEDS: CITALOPRAM HYDROBROMIDE 20MG TABLET PO SCH (09:32)
[2017-05-01] MEDS: TAMSULOSIN HCL 0.4MG SR CAPSULE PO SCH (09:32)
[2017-05-01] MEDS: ENOXAPARIN 30MG/0.3ML SYR SUBCUT SCH (09:33)
[2017-05-01] MEDS: CARVEDILOL 12.5MG TABLET PO SCH ×2 (09:33→21:00)
[2017-05-01] MEDS: AMMONIUM LACTATE 12% LOTION 240ML TOP SCH ×2 (09:34→17:11)
[2017-05-01] MEDS: VANCOMYCIN HCL 1000 MG/20 ML ORAL PO SCH (19:15)
[2017-05-01 20:00] VITALS: BP 149/84
[2017-05-01] MEDS ORDERED: EPOETIN ALFA 10000UNITS/ML VIAL SUBCUT SCH (21:00)
[2017-05-01] MEDS ORDERED: IPRATROPIUM/ALBUTEROL 0.5-3(2.5)MG/3ML NEB HHN PRN (21:15)
[2017-05-01] MEDS ORDERED: ACETAMINOPHEN 325MG TABLET PO PRN (21:15)
[2017-05-01] MEDS ORDERED: MORPHINE SULFATE 4 MG/ML CPJ (NOT FOR IM USE) IV PRN (21:15)
[2017-05-01] MEDS ORDERED: CLONIDINE 0.1MG TABLET PO PRN (21:15)
[2017-05-01] MEDS ORDERED: DOCUSATE SODIUM 250MG CAPSULE PO PRN (21:15)
[2017-05-01] MEDS ORDERED: ONDANSETRON HCL 4MG/2ML VIAL IV PRN (21:15)
[2017-05-01] MEDS ORDERED: MAGNESIUM/ALUMINUM HYDROXIDE/SIMETHICONE 30ML UDC PO PRN (21:15)
[2017-05-01] MEDS ORDERED: GUAIFENESIN 200MG/10ML SUGAR FREE UDC PO PRN (21:15)
[2017-05-01] MEDS ORDERED: HYDROCODONE/ACETAMINOPHEN 5/325MG TABLET PO PRN (21:15)
[2017-05-01] MEDS ORDERED: DOCUSATE SODIUM 100MG CAPSULE PO PRN (21:30)
[2017-05-01] MEDS: ATORVASTATIN CALCIUM 40MG TABLET PO SCH (21:57)
[2017-05-01] MEDS: INSULIN DETEMIR UD 100 UNITS/ML SYR SUBCUT SCH (22:07)
[2017-05-02] MEDS: VANCOMYCIN HCL 1000 MG/20 ML ORAL PO SCH ×5 (01:15→23:53)
[2017-05-02] MEDS ORDERED: DOCUSATE SODIUM 100MG CAPSULE PO PRN ×2 (03:00)
[2017-05-02] MEDS ORDERED: ONDANSETRON HCL 4MG TABLET PO PRN (03:00)
[2017-05-02] MEDS ORDERED: ACETAMINOPHEN 325MG TABLET PO PRN (03:00)
[2017-05-02] MEDS: BLOOD SUGAR DIAGNOSTIC STRIP TEST SCH ×4 (05:41→21:00)
[2017-05-02] MEDS: INSULIN LISPRO 100 UNITS/ML SUBCUT SCH ×7 (06:36→22:38)
[2017-05-02 08:00] VITALS: BP 99/56
[2017-05-02] MEDS ORDERED: FOLIC ACID 1MG TABLET PO SCH (09:00)
[2017-05-02] MEDS ORDERED: ASPIRIN 81MG TABLET PO SCH (09:00)
[2017-05-02] MEDS: FOLIC ACID/VITAMIN B COMP W-C TABLET PO SCH (09:19)
[2017-05-02] MEDS: DOCUSATE SODIUM 100MG CAPSULE PO SCH ×2 (09:19→17:05)
[2017-05-02] MEDS: LINAGLIPTIN 5MG TABLET PO SCH (09:19)
[2017-05-02] MEDS: CITALOPRAM HYDROBROMIDE 20MG TABLET PO SCH (09:19)
[2017-05-02] MEDS: ISOSORB DINIT/HYDRALAZINE HCL 20/37.5MG TABLET PO SCH ×2 (09:20→22:35)
[2017-05-02] MEDS: TAMSULOSIN HCL 0.4MG SR CAPSULE PO SCH (09:20)
[2017-05-02] MEDS: FAMOTIDINE 20MG TABLET PO SCH (09:20)
[2017-05-02] MEDS: CARVEDILOL 12.5MG TABLET PO SCH ×2 (09:21→22:36)
[2017-05-02] MEDS: ENOXAPARIN 30MG/0.3ML SYR SUBCUT SCH (09:21)
[2017-05-02] MEDS: AMMONIUM LACTATE 12% LOTION 240ML TOP SCH ×2 (09:22→17:05)
[2017-05-02 09:24] VITALS: BP 118/72
[2017-05-02 10:09] LABS: BASOPHILS % 0.3 % (0.0-2.0); HEMATOCRIT. 28.9 % (42.0-52.0); HEMOGLOBIN. 9.5 g/dL (14.0-18.0); LYMPHOCYTES % 7.5 % (20.0-50.0); MEAN CORPUSCULAR HEMOGLOBIN 29.3 pg (28.0-32.0); MEAN CORPUSCULAR VOLUME 89.7 fL (80.0-94.0); MEAN PLATELET VOLUME 8.6 fl (7.4-10.4); MONOCYTES % 8.9 % (2.0-8.0); NEUTROPHILS % 81.3 % (40.0-76.0); PLATELET 265 x1000/uL (130-400); RED BLOOD CELL COUNT 3.22 mill/uL (4.7-6.1); RED CELL DISTRIBUTION WIDTH 14.1 % (11.6-14.6)
[2017-05-02 10:24] LABS: CARBON DIOXIDE 29 mEq/L (21-32); CHLORIDE 105 mEq/L (98-107)
[2017-05-02 20:00] VITALS: BP 111/62
[2017-05-02] MEDS: INSULIN DETEMIR UD 100 UNITS/ML SYR SUBCUT SCH (22:39)
[2017-05-03] MEDS: VANCOMYCIN HCL 1000 MG/20 ML ORAL PO SCH ×3 (06:44→17:45)
[2017-05-03] MEDS: BLOOD SUGAR DIAGNOSTIC STRIP TEST SCH ×4 (06:44→21:53)
[2017-05-03] MEDS: INSULIN LISPRO 100 UNITS/ML SUBCUT SCH ×7 (06:47→22:01)
[2017-05-03 07:03] LABS: HEMATOCRIT. 25.8 % (42.0-52.0); HEMOGLOBIN. 8.4 g/dL (14.0-18.0); MEAN CORPUSCULAR HEMOGLOBIN 29.3 pg (28.0-32.0); MEAN CORPUSCULAR VOLUME 90.1 fL (80.0-94.0); MEAN PLATELET VOLUME 8.6 fl (7.4-10.4); PLATELET 255 x1000/uL (130-400); RED BLOOD CELL COUNT 2.86 mill/uL (4.7-6.1)
[2017-05-03 08:00] VITALS: BP 115/61
[2017-05-03 08:36] LABS: CARBON DIOXIDE 29 mEq/L (21-32); CHLORIDE 107 mEq/L (98-107)
[2017-05-03] MEDS: DOCUSATE SODIUM 100MG CAPSULE PO SCH ×2 (09:00→17:00)
[2017-05-03] MEDS: LINAGLIPTIN 5MG TABLET PO SCH (09:48)
[2017-05-03] MEDS: FAMOTIDINE 20MG TABLET PO SCH (09:48)
[2017-05-03] MEDS: CITALOPRAM HYDROBROMIDE 20MG TABLET PO SCH (09:48)
[2017-05-03] MEDS: FOLIC ACID/VITAMIN B COMP W-C TABLET PO SCH (09:48)
[2017-05-03] MEDS: TAMSULOSIN HCL 0.4MG SR CAPSULE PO SCH (09:49)
[2017-05-03] MEDS: ISOSORB DINIT/HYDRALAZINE HCL 20/37.5MG TABLET PO SCH ×2 (09:49→21:53)
[2017-05-03] MEDS: CARVEDILOL 12.5MG TABLET PO SCH ×2 (09:49→21:53)
[2017-05-03] MEDS: ENOXAPARIN 30MG/0.3ML SYR SUBCUT SCH (09:51)
[2017-05-03] MEDS: AMMONIUM LACTATE 12% LOTION 240ML TOP SCH ×2 (11:52→17:45)
[2017-05-03 18:04] LABS: PLATELET ESTIMATE NORMAL
[2017-05-03 20:00] VITALS: BP 138/74
[2017-05-03] MEDS: INSULIN DETEMIR UD 100 UNITS/ML SYR SUBCUT SCH (22:02)
[2017-05-04] MEDS: VANCOMYCIN HCL 1000 MG/20 ML ORAL PO SCH ×3 (00:39→12:56)
[2017-05-04] MEDS: BLOOD SUGAR DIAGNOSTIC STRIP TEST SCH ×2 (06:22→12:52)
[2017-05-04] MEDS: INSULIN LISPRO 100 UNITS/ML SUBCUT SCH ×4 (06:26→12:58)
[2017-05-04 08:00] VITALS: BP 109/67
[2017-05-04] MEDS: ENOXAPARIN 30MG/0.3ML SYR SUBCUT SCH (08:59)
[2017-05-04] MEDS: DOCUSATE SODIUM 100MG CAPSULE PO SCH (09:00)
[2017-05-04] MEDS: ISOSORB DINIT/HYDRALAZINE HCL 20/37.5MG TABLET PO SCH (09:00)
[2017-05-04] MEDS: CARVEDILOL 12.5MG TABLET PO SCH (09:00)
[2017-05-04] MEDS: FOLIC ACID/VITAMIN B COMP W-C TABLET PO SCH (09:00)
[2017-05-04] MEDS: LINAGLIPTIN 5MG TABLET PO SCH (09:00)
[2017-05-04] MEDS: FAMOTIDINE 20MG TABLET PO SCH (09:00)
[2017-05-04] MEDS: TAMSULOSIN HCL 0.4MG SR CAPSULE PO SCH (09:01)
[2017-05-04] MEDS: CITALOPRAM HYDROBROMIDE 20MG TABLET PO SCH (09:02)
[2017-05-04] MEDS: AMMONIUM LACTATE 12% LOTION 240ML TOP SCH (09:09)
[2017-05-04 13:10] VITALS: BP 110/70
[2017-05-31] MEDS ORDERED: METR250T PO (17:17)
== END 2017-05-04 14:50 | disposition home health service (06) | DRG 683 ==
PROVIDERS: ADMIT Psychiatry & Neurology Neurology; ATTEND Internal Medicine
PROC: 5A1D60Z (ICD-10-PCS; principal; 2017-04-29)
DX: N17.9 Acute kidney failure, unspecified (principal); A04.7 Enterocolitis due to Clostridium difficile; E46 Unspecified protein-calorie malnutrition; I13.0 Hypertensive heart and chronic kidney disease with heart failure and stage 1 through stage 4 chronic kidney disease, or unspecified chronic kidney disease; N18.4 Chronic kidney disease, stage 4 (severe); E11.22 Type 2 diabetes mellitus with diabetic chronic kidney disease; I50.9 Heart failure, unspecified; Z98.1 Arthrodesis status; E11.649 Type 2 diabetes mellitus with hypoglycemia without coma; K76.0 Fatty (change of) liver, not elsewhere classified; N28.1 Cyst of kidney, acquired; N28.89 Other specified disorders of kidney and ureter; N40.0 Benign prostatic hyperplasia without lower urinary tract symptoms; M19.90 Unspecified osteoarthritis, unspecified site; K21.9 Gastro-esophageal reflux disease without esophagitis; D63.8 Anemia in other chronic diseases classified elsewhere; I25.10 Atherosclerotic heart disease of native coronary artery without angina pectoris; G90.8 Other disorders of autonomic nervous system; F06.31 Mood disorder due to known physiological condition with depressive features; J40 Bronchitis, not specified as acute or chronic; G40.909 Epilepsy, unspecified, not intractable, without status epilepticus; F32.9 Major depressive disorder, single episode, unspecified; E78.5 Hyperlipidemia, unspecified; J30.9 Allergic rhinitis, unspecified; E11.40 Type 2 diabetes mellitus with diabetic neuropathy, unspecified; Z86.73 Personal history of transient ischemic attack (TIA), and cerebral infarction without residual deficits; Z87.891 Personal history of nicotine dependence; Z79.899 Other long term (current) drug therapy; Z88.6 Allergy status to analgesic agent; Z88.8 Allergy status to other drugs, medicaments and biological substances; Z68.27 Body mass index [BMI] 27.0-27.9, adult; I87.2 Venous insufficiency (chronic) (peripheral); Z79.4 Long term (current) use of insulin
CPT/HCPCS: 36415; 80048; 80053; 81001; 81003; 82465; 82962; 83718; 83721; 84439; 84443; 84478; 84481; 85025; 85027; 85610; 85730; 87040; 87086; 87493; 97110; 97112; 97116; 97162; 97166; 97530; 97535; J0295; J0885; J1580; J1650; J1815; J3370; J7040; J7050; A5200

== ENCOUNTER 2017-05-28 23:46 | Inpatient (IN) | payer MEDICARE, MEDICAID ==
[~2017-05-28] VITALS: Ht 170.2 cm; Wt 72.1 kg
[2017-05-29] MEDS ORDERED: SODIUM CHLORIDE 0.9% 1000ML BAG (SEPSIS BOLUS) IV ONE (00:30)
[2017-05-29 00:58] LABS: BASOPHILS % 0.7 % (0.0-2.0); EOSINOPHILS % 0.4 % (0.0-5.0); HEMATOCRIT. 33.4 % (42.0-52.0); LYMPHOCYTES % 7.9 % (20.0-50.0); MEAN CORPUSCULAR HEMOGLOBIN 29.5 pg (28.0-32.0); MEAN CORPUSCULAR VOLUME 89.6 fL (80.0-94.0); MEAN PLATELET VOLUME 9.4 fl (7.4-10.4); MONOCYTES % 8.6 % (2.0-8.0); NEUTROPHILS % 82.4 % (40.0-76.0); PLATELET 191 x1000/uL (130-400); RED BLOOD CELL COUNT 3.72 mill/uL (4.7-6.1); RED CELL DISTRIBUTION WIDTH 14.5 % (11.6-14.6)
[2017-05-29 01:00] LABS: CHLORIDE 104 mEq/L (98-107)
[2017-05-29 01:03] LABS: PROTHROMBIN TIME 10.9 sec (9.4-11.6)
[2017-05-29 01:09] LABS: CARBON DIOXIDE 28 mEq/L (21-32)
[2017-05-29] MEDS ORDERED: VANCOMYCIN HCL 1 GM/VIAL PO SCH (01:45)
[2017-05-29] MEDS ORDERED: VANCOMYCIN HCL 1000 MG/20 ML ORAL PO NR (02:00)
[2017-05-29] MEDS ORDERED: ACETAMINOPHEN 500MG TABLET PO ONE (02:15)
[2017-05-29 04:45] VITALS: BP 106/61
[2017-05-29 05:43] VITALS: BP 106/61
[2017-05-29] MEDS ORDERED: IPRATROPIUM/ALBUTEROL 0.5-3(2.5)MG/3ML NEB INH PRN (07:30)
[2017-05-29] MEDS ORDERED: ONDANSETRON HCL 4MG/2ML VIAL IV PRN (07:30)
[2017-05-29] MEDS ORDERED: MAGNESIUM/ALUMINUM HYDROXIDE/SIMETHICONE 30ML UDC PO PRN (07:30)
[2017-05-29] MEDS ORDERED: ACETAMINOPHEN 650MG SUPP PR PRN (07:30)
[2017-05-29] MEDS ORDERED: DIPHENHYDRAMINE 50MG/ML VIAL IV PRN (07:30)
[2017-05-29] MEDS ORDERED: CLONIDINE 0.1MG TABLET PO PRN (07:30)
[2017-05-29] MEDS ORDERED: ACETAMINOPHEN 650MG/20.3ML UDC GT PRN (07:30)
[2017-05-29] MEDS ORDERED: DOCUSATE SODIUM 100MG CAPSULE PO PRN (07:30)
[2017-05-29] MEDS ORDERED: HYDROCODONE/ACETAMINOPHEN 5/325MG TABLET PO PRN (07:30)
[2017-05-29] MEDS ORDERED: NA PHOS,M-B/NA PHOS,DI-BA ENEMA 118ML PR PRN (07:30)
[2017-05-29] MEDS ORDERED: ENOXAPARIN 40MG/0.4ML SYR SUBCUT SCH (07:30)
[2017-05-29] MEDS ORDERED: MORPHINE SULFATE 4 MG/ML CPJ (NOT FOR IM USE) IV PRN (07:30)
[2017-05-29 07:34] VITALS: BP 139/75
[2017-05-29] MEDS: ENOXAPARIN 30MG/0.3ML SYR SUBCUT SCH (09:34)
[2017-05-29] MEDS ORDERED: METRONIDAZOLE 500 MG PREMIX 100 ML IV SCH ×2 (10:00→14:00)
[2017-05-29 11:49] VITALS: BP 114/61
[2017-05-29] MEDS: SODIUM CHLORIDE 0.45% 1,000 ML IV SCH ×2 (12:01→23:19)
[2017-05-29] MEDS: SODIUM CHLORIDE 0.9% INJ 3ML FLUSH IVF SCH ×2 (14:00→22:08)
[2017-05-29 16:10] VITALS: BP 146/62
[2017-05-29] MEDS ORDERED: HEPARIN SODIUM 1,000 UNIT/1ML VIAL IV NR (16:38)
[2017-05-29] MEDS ORDERED: VANCOMYCIN 1 G PREMIX 200 ML IV NR (18:00)
[2017-05-29] MEDS ORDERED: GENTAMICIN 80MG PREMIX 100 ML IV NR (18:00)
[2017-05-29] MEDS: VANCOMYCIN HCL 1000 MG/20 ML ORAL PO SCH ×2 (18:34→23:19)
[2017-05-29 20:00] VITALS: BP 128/69
[2017-05-29] MEDS: METRONIDAZOLE 500 MG PREMIX 100 ML IV SCH (20:35)
[2017-05-30] VITALS: BP 119/68
[2017-05-30 04:00] VITALS: BP 119/60
[2017-05-30] MEDS: SODIUM CHLORIDE 0.9% INJ 3ML FLUSH IVF SCH ×3 (05:05→21:05)
[2017-05-30] MEDS: VANCOMYCIN HCL 1000 MG/20 ML ORAL PO SCH ×3 (05:05→17:07)
[2017-05-30 06:57] LABS: HEMATOCRIT. 33.2 % (42.0-52.0); HEMOGLOBIN. 10.8 g/dL (14.0-18.0); MEAN CORPUSCULAR HEMOGLOBIN 29.8 pg (28.0-32.0); MEAN CORPUSCULAR VOLUME 91.3 fL (80.0-94.0); MEAN PLATELET VOLUME 9.4 fl (7.4-10.4); PLATELET 152 x1000/uL (130-400); RED BLOOD CELL COUNT 3.63 mill/uL (4.7-6.1); RED CELL DISTRIBUTION WIDTH 14.6 % (11.6-14.6)
[2017-05-30 07:36] LABS: CARBON DIOXIDE 26 mEq/L (21-32); CHLORIDE 110 mEq/L (98-107); GENTAMICIN RANDOM 3.4 ug/mL; HDL CHOLESTEROL 33 mg/dL (40-59); LDL CHOLESTEROL 105 mg/dL (5-100); PHOSPHORUS 3.5 mg/dL (2.5-4.9)
[2017-05-30 08:00] VITALS: BP 131/68
[2017-05-30] MEDS: FOLIC ACID/VITAMIN B COMP W-C TABLET PO SCH (08:56)
[2017-05-30] MEDS: METRONIDAZOLE 500 MG PREMIX 100 ML IV SCH ×2 (08:56→21:05)
[2017-05-30] MEDS: ENOXAPARIN 30MG/0.3ML SYR SUBCUT SCH (08:56)
[2017-05-30 12:10] VITALS: BP 132/74
[2017-05-30 13:27] LABS: PLATELET ESTIMATE NORMAL
[2017-05-30 16:06] VITALS: BP 134/75
[2017-05-30] MEDS: SODIUM CHLORIDE 0.45% 1,000 ML IV SCH (17:06)
[2017-05-30] MEDS: ISOSORBIDE DINITRATE 10MG TABLET PO SCH (17:07)
[2017-05-30 20:00] VITALS: BP 111/61
[2017-05-30] MEDS: CARVEDILOL 6.25 MG TABLET PO SCH (21:00)
[2017-05-30] MEDS ORDERED: DEXTROSE 50% WATER 50ML SYRINGE IV PRN (21:15)
[2017-05-30] MEDS: BLOOD SUGAR DIAGNOSTIC STRIP TEST SCH (21:42)
[2017-05-30] MEDS: INSULIN LISPRO 100 UNITS/ML SUBCUT SCH (21:52)
[2017-05-31] VITALS: BP 114/67
[2017-05-31] MEDS: VANCOMYCIN HCL 1000 MG/20 ML ORAL PO SCH ×3 (00:59→12:06)
[2017-05-31 04:00] VITALS: BP 117/71
[2017-05-31 06:39] LABS: HEMATOCRIT. 28.9 % (42.0-52.0); HEMOGLOBIN. 9.4 g/dL (14.0-18.0); MEAN CORPUSCULAR HEMOGLOBIN 29.5 pg (28.0-32.0); MEAN CORPUSCULAR VOLUME 90.4 fL (80.0-94.0); MEAN PLATELET VOLUME 10.1 fl (7.4-10.4); PLATELET 159 x1000/uL (130-400); RED CELL DISTRIBUTION WIDTH 14.7 % (11.6-14.6)
[2017-05-31] MEDS: METRONIDAZOLE 500 MG PREMIX 100 ML IV SCH (06:39)
[2017-05-31] MEDS: SODIUM CHLORIDE 0.9% INJ 3ML FLUSH IVF SCH (06:41)
[2017-05-31] MEDS: INSULIN LISPRO 100 UNITS/ML SUBCUT SCH ×2 (06:43→12:17)
[2017-05-31] MEDS: BLOOD SUGAR DIAGNOSTIC STRIP TEST SCH ×2 (06:43→12:18)
[2017-05-31 08:00] VITALS: BP_SYST 114; BP_SYST 131; BP_DIAS 63; BP_DIAS 74
[2017-05-31] MEDS ORDERED: CITALOPRAM HYDROBROMIDE 20MG TABLET PO SCH (09:00)
[2017-05-31] MEDS ORDERED: TAMSULOSIN HCL 0.4MG SR CAPSULE PO SCH (09:00)
[2017-05-31] MEDS: SODIUM CHLORIDE 0.45% 1,000 ML IV SCH (09:24)
[2017-05-31] MEDS: FOLIC ACID/VITAMIN B COMP W-C TABLET PO SCH (09:37)
[2017-05-31] MEDS: ISOSORBIDE DINITRATE 10MG TABLET PO SCH (09:38)
[2017-05-31] MEDS: CARVEDILOL 6.25 MG TABLET PO SCH (09:39)
[2017-05-31] MEDS: ENOXAPARIN 30MG/0.3ML SYR SUBCUT SCH (09:41)
[2017-05-31 12:00] VITALS: BP 110/64
[2017-05-31 14:27] LABS: PLATELET ESTIMATE NORMAL
[2017-05-31 16:00] VITALS: BP 116/66
[2017-05-31 16:39] VITALS: BP 116/66
[2017-05-31] MEDS ORDERED: METR250T PO (17:17)
== END 2017-05-31 17:15 | disposition home or self-care (01) | DRG 871 ==
LOC: ER 23:51 → 8WST 05-29 01:45 → EDBEDREQ 05-29 01:47 → EDBEDREQSVC 05-29 01:48 → ENRESERV 05-29 03:11
PROVIDERS: ADMIT Family Medicine; ATTEND Family Medicine
PROC: 5A1D70Z Performance of Urinary Filtration, Intermittent, Less than 6 Hours Per Day (ICD-10-PCS; principal; 2017-05-29)
DX: A41.9 Sepsis, unspecified organism (principal); N18.6 End stage renal disease; A04.72 Enterocolitis due to Clostridium difficile, not specified as recurrent; E46 Unspecified protein-calorie malnutrition; I13.2 Hypertensive heart and chronic kidney disease with heart failure and with stage 5 chronic kidney disease, or end stage renal disease; I50.30 Unspecified diastolic (congestive) heart failure; N39.0 Urinary tract infection, site not specified; E11.22 Type 2 diabetes mellitus with diabetic chronic kidney disease; G40.909 Epilepsy, unspecified, not intractable, without status epilepticus; E11.40 Type 2 diabetes mellitus with diabetic neuropathy, unspecified; D64.9 Anemia, unspecified; E78.5 Hyperlipidemia, unspecified; F32.9 Major depressive disorder, single episode, unspecified; I25.10 Atherosclerotic heart disease of native coronary artery without angina pectoris; K21.9 Gastro-esophageal reflux disease without esophagitis; L30.9 Dermatitis, unspecified; M06.9 Rheumatoid arthritis, unspecified; M48.00 Spinal stenosis, site unspecified; N35.9 Urethral stricture, unspecified; N40.0 Benign prostatic hyperplasia without lower urinary tract symptoms; Z72.0 Tobacco use; Z85.528 Personal history of other malignant neoplasm of kidney; Z86.73 Personal history of transient ischemic attack (TIA), and cerebral infarction without residual deficits; Z98.1 Arthrodesis status; Z99.2 Dependence on renal dialysis; Z88.6 Allergy status to analgesic agent; Z79.2 Long term (current) use of antibiotics; Z79.4 Long term (current) use of insulin; Z79.899 Other long term (current) drug therapy
CPT/HCPCS: 36415; 71010; 80048; 80053; 80061; 80170; 80202; 82962; 83605; 83735; 84100; 85025; 85610; 87015; 87040; 87045; 87427; 87449; 87493; 93005; 96360; 96361; 97110; 97116; 97162; 97166; 97530; 97535; 99285; J1580; J1644; J1650; J1815; J3370; J3490; J7030

== ENCOUNTER 2017-06-02 17:05 | Inpatient (IN) | payer MEDICARE, MEDICAID ==
[~2017-06-02] VITALS: Ht 170.2 cm; Wt 69.9 kg
[~2017-06-02 17:05] MED LIST changes: -LEVO250T2 IV; +METR250T PO
[2017-06-02 19:35] LABS: BASOPHILS % 0.5 % (0.0-2.0); HEMATOCRIT. 39.5 % (42.0-52.0); HEMOGLOBIN. 13.1 g/dL (14.0-18.0); MEAN CORPUSCULAR HEMOGLOBIN 29.8 pg (28.0-32.0); MEAN PLATELET VOLUME 9.4 fl (7.4-10.4); MONOCYTES % 13.1 % (2.0-8.0); NEUTROPHILS % 69.4 % (40.0-76.0); PLATELET 193 x1000/uL (130-400); RED BLOOD CELL COUNT 4.39 mill/uL (4.7-6.1); RED CELL DISTRIBUTION WIDTH 14.7 % (11.6-14.6)
[2017-06-02 19:38] LABS: CARBON DIOXIDE 28 mEq/L (21-32); CHLORIDE 105 mEq/L (98-107); TROPONIN I < 0.02 ng/mL (0.00-0.04)
[2017-06-02 23:02] LABS: HEPATITIS B SURFACE ANTIGEN NEGATIVE
[2017-06-02 23:30] LABS: HEPATITIS B CORE AB IGM NEGATIVE
[2017-06-02 23:32] LABS: HEPATITIS A AB IGM NEGATIVE (NEGATIVE)
[2017-06-03] VITALS: BP 163/98
[2017-06-03] MEDS ORDERED: DOCUSATE SODIUM 100MG CAPSULE PO PRN (01:45)
[2017-06-03] MEDS ORDERED: TRAZODONE HCL 100MG TABLET PO PRN (01:45)
[2017-06-03] MEDS ORDERED: MORPHINE SULFATE 2 MG/ML CPJ (NOT FOR IM USE) IV PRN (01:45)
[2017-06-03] MEDS ORDERED: DEXTROSE 50% WATER 50ML SYRINGE IV PRN (01:45)
[2017-06-03] MEDS ORDERED: ONDANSETRON HCL 4MG/2ML VIAL IV PRN (01:45)
[2017-06-03] MEDS ORDERED: DICLOFENAC SODIUM 50MG EC TABLET PO PRN (02:00)
[2017-06-03] MEDS ORDERED: POTASSIUM CHLORIDE 20MEQ TABLET SR PO SCH (02:16)
[2017-06-03 04:00] VITALS: BP 142/70
[2017-06-03 07:36] LABS: HEMATOCRIT. 31.7 % (42.0-52.0); HEMOGLOBIN. 10.7 g/dL (14.0-18.0); MEAN CORPUSCULAR HEMOGLOBIN 30.1 pg (28.0-32.0); MEAN CORPUSCULAR VOLUME 89.2 fL (80.0-94.0); MEAN PLATELET VOLUME 9.7 fl (7.4-10.4); PLATELET 208 x1000/uL (130-400); RED BLOOD CELL COUNT 3.55 mill/uL (4.7-6.1); RED CELL DISTRIBUTION WIDTH 14.6 % (11.6-14.6)
[2017-06-03] MEDS ORDERED: PANTOPRAZOLE 40MG DR TABLET PO PRN (07:40)
[2017-06-03] MEDS ORDERED: PANTOPRAZOLE 40MG DR TABLET PO SCH (07:40)
[2017-06-03] MEDS: BLOOD SUGAR DIAGNOSTIC STRIP TEST SCH ×4 (07:40→21:36)
[2017-06-03 08:00] VITALS: BP 151/81
[2017-06-03] MEDS ORDERED: MAGNESIUM/ALUMINUM HYDROXIDE/SIMETHICONE 30ML UDC PO PRN (08:00)
[2017-06-03] MEDS ORDERED: NA PHOS,M-B/NA PHOS,DI-BA ENEMA 118ML PR PRN (08:00)
[2017-06-03] MEDS: INSULIN LISPRO 100 UNITS/ML SUBCUT SCH ×4 (08:10→21:00)
[2017-06-03 08:17] LABS: CARBON DIOXIDE 31 mEq/L (21-32); CHLORIDE 107 mEq/L (98-107)
[2017-06-03 09:06] LABS: AMYLASE 63 IU/L (25-115)
[2017-06-03] MEDS: CARVEDILOL 3.125 MG TABLET PO SCH ×2 (10:08→21:36)
[2017-06-03 11:41] LABS: ETHANOL BLOOD < 10 mg/dL; GAMMA GLUTAMYL TRANSPEPTIDASE 124 IU/L (11-50)
[2017-06-03 12:00] VITALS: BP 114/72
[2017-06-03] MEDS ORDERED: INFLUENZA VIRUS VACCINE 0.5ML SYR IM ONE (12:00)
[2017-06-03] MEDS: FOLIC ACID/VITAMIN B COMP W-C TABLET PO SCH (12:50)
[2017-06-03 14:01] LABS: PLATELET ESTIMATE NORMAL
[2017-06-03] MEDS: VANCOMYCIN HCL 1000 MG/20 ML ORAL PO SCH ×2 (14:21→17:52)
[2017-06-03] MEDS: SILVER SULFADIAZINE 1% CREAM 25GM TOP SCH ×2 (14:34→21:36)
[2017-06-03 16:00] VITALS: BP 139/68
[2017-06-03 20:00] VITALS: BP 131/75
[2017-06-03 21:02] LABS: AMMONIA 41 uMol/L (<32); INR 1.1; PROTHROMBIN TIME 11.4 sec (9.4-11.6)
[2017-06-04] VITALS: BP 121/74
[2017-06-04] MEDS: IPRATROPIUM/ALBUTEROL 0.5-3(2.5)MG/3ML NEB HHN SCH ×4 (00:26→20:16)
[2017-06-04 00:56] LABS: *AMPHETAMINES SCREEN URINE NEGATIVE (NEGATIVE); *BARBITURATES SCREEN URINE NEGATIVE (NEGATIVE); *BENZODIAZEPINES SCREEN URINE NEGATIVE (NEGATIVE); *COCAINE SCREEN URINE NEGATIVE (NEGATIVE); CANNABINOID URINE SCREEN NEGATIVE (NEGATIVE); METHADONE URINE SCREEN NEGATIVE (NEGATIVE); OPIATES URINE SCREEN NEGATIVE (NEGATIVE); PHENCYCLIDINE URINE SCREEN NEGATIVE (NEGATIVE)
[2017-06-04] MEDS: VANCOMYCIN HCL 1000 MG/20 ML ORAL PO SCH ×4 (01:08→17:31)
[2017-06-04 04:00] VITALS: BP 137/69
[2017-06-04] MEDS: BLOOD SUGAR DIAGNOSTIC STRIP TEST SCH ×4 (07:22→20:32)
[2017-06-04] MEDS: INSULIN LISPRO 100 UNITS/ML SUBCUT SCH ×4 (07:22→20:33)
[2017-06-04 08:00] VITALS: BP 147/78
[2017-06-04] MEDS: CARVEDILOL 3.125 MG TABLET PO SCH ×2 (09:13→20:32)
[2017-06-04] MEDS: FOLIC ACID/VITAMIN B COMP W-C TABLET PO SCH (09:13)
[2017-06-04] MEDS: SILVER SULFADIAZINE 1% CREAM 25GM TOP SCH ×2 (09:14→20:33)
[2017-06-04 12:00] VITALS: BP 136/78
[2017-06-04 16:00] VITALS: BP 156/78
[2017-06-04 20:00] VITALS: BP 125/80
[2017-06-05] VITALS: BP 109/70
[2017-06-05] MEDS: VANCOMYCIN HCL 1000 MG/20 ML ORAL PO SCH ×5 (00:33→23:41)
[2017-06-05] MEDS: IPRATROPIUM/ALBUTEROL 0.5-3(2.5)MG/3ML NEB HHN SCH ×4 (02:58→20:52)
[2017-06-05 04:00] VITALS: BP 115/64
[2017-06-05 06:49] LABS: BASOPHILS % 0.6 % (0.0-2.0); EOSINOPHILS % 5.4 % (0.0-5.0); HEMATOCRIT. 30.8 % (42.0-52.0); HEMOGLOBIN. 10.2 g/dL (14.0-18.0); LYMPHOCYTES % 18.2 % (20.0-50.0); MEAN CORPUSCULAR HEMOGLOBIN 29.9 pg (28.0-32.0); MEAN PLATELET VOLUME 8.9 fl (7.4-10.4); MONOCYTES % 12.3 % (2.0-8.0); NEUTROPHILS % 63.5 % (40.0-76.0); PLATELET 246 x1000/uL (130-400); RED BLOOD CELL COUNT 3.43 mill/uL (4.7-6.1); RED CELL DISTRIBUTION WIDTH 14.5 % (11.6-14.6)
[2017-06-05] MEDS: BLOOD SUGAR DIAGNOSTIC STRIP TEST SCH ×4 (06:58→21:07)
[2017-06-05 07:01] LABS: AMMONIA 42 uMol/L (<32)
[2017-06-05 08:00] VITALS: BP 138/77
[2017-06-05 08:09] LABS: CARBON DIOXIDE 25 mEq/L (21-32); CHLORIDE 105 mEq/L (98-107); CREATINE KINASE 30 IU/L (39-308)
[2017-06-05] MEDS: FOLIC ACID/VITAMIN B COMP W-C TABLET PO SCH (08:43)
[2017-06-05] MEDS: INSULIN LISPRO 100 UNITS/ML SUBCUT SCH ×4 (08:43→21:07)
[2017-06-05] MEDS: CARVEDILOL 3.125 MG TABLET PO SCH ×2 (08:43→21:07)
[2017-06-05] MEDS: SILVER SULFADIAZINE 1% CREAM 25GM TOP SCH ×2 (08:56→21:08)
[2017-06-05 12:00] VITALS: BP 130/70
[2017-06-05 16:00] VITALS: BP 116/65
[2017-06-05] MEDS: LACTULOSE 20G/30ML UDC PO SCH (17:06)
[2017-06-05 20:00] VITALS: BP 112/70
[2017-06-06] VITALS (7 sets, daily range): BP systolic 110–129; BP diastolic 51–79
[2017-06-06] MEDS: IPRATROPIUM/ALBUTEROL 0.5-3(2.5)MG/3ML NEB HHN SCH ×4 (03:07→20:25)
[2017-06-06] MEDS: VANCOMYCIN HCL 1000 MG/20 ML ORAL PO SCH ×4 (05:31→23:52)
[2017-06-06] MEDS: BLOOD SUGAR DIAGNOSTIC STRIP TEST SCH ×4 (06:49→20:22)
[2017-06-06 07:01] LABS: AMMONIA 40 uMol/L (<32)
[2017-06-06] MEDS: FOLIC ACID/VITAMIN B COMP W-C TABLET PO SCH (09:29)
[2017-06-06] MEDS: LINAGLIPTIN 5MG TABLET PO SCH (09:29)
[2017-06-06] MEDS: LACTULOSE 20G/30ML UDC PO SCH (09:29)
[2017-06-06] MEDS: CARVEDILOL 3.125 MG TABLET PO SCH ×2 (09:38→20:20)
[2017-06-06] MEDS: INSULIN LISPRO 100 UNITS/ML SUBCUT SCH ×3 (09:40→20:22)
[2017-06-06] MEDS: INSULIN DETEMIR UD 100 UNITS/ML SYR SUBCUT SCH ×2 (09:41→22:12)
[2017-06-06] MEDS: SILVER SULFADIAZINE 1% CREAM 25GM TOP SCH ×2 (09:42→20:22)
[2017-06-07] VITALS: BP 141/87
[2017-06-07] MEDS: IPRATROPIUM/ALBUTEROL 0.5-3(2.5)MG/3ML NEB HHN SCH ×2 (00:26→09:59)
[2017-06-07 04:00] VITALS: BP 141/98
[2017-06-07] MEDS: VANCOMYCIN HCL 1000 MG/20 ML ORAL PO SCH ×2 (05:17→12:00)
[2017-06-07] MEDS: BLOOD SUGAR DIAGNOSTIC STRIP TEST SCH ×2 (07:40→13:37)
[2017-06-07 08:01] LABS: CARBON DIOXIDE 25 mEq/L (21-32); CHLORIDE 112 mEq/L (98-107)
[2017-06-07] MEDS ORDERED: REGADENOSON 0.4 MG/5 ML IV ONE ×2 (08:26→12:30)
[2017-06-07 08:35] LABS: BASOPHILS % 0.8 % (0.0-2.0); EOSINOPHILS % 4.4 % (0.0-5.0); HEMATOCRIT. 31.4 % (42.0-52.0); HEMOGLOBIN. 10.4 g/dL (14.0-18.0); MEAN CORPUSCULAR VOLUME 90.8 fL (80.0-94.0); MEAN PLATELET VOLUME 8.9 fl (7.4-10.4); MONOCYTES % 10.1 % (2.0-8.0); NEUTROPHILS % 68.7 % (40.0-76.0); PLATELET 265 x1000/uL (130-400); RED BLOOD CELL COUNT 3.46 mill/uL (4.7-6.1)
[2017-06-07 08:41] LABS: AMMONIA 32 uMol/L (<32)
[2017-06-07] MEDS ORDERED: LACTULOSE 20G/30ML UDC PO SCH (09:00)
[2017-06-07 09:20] VITALS: BP 152/68
[2017-06-07] MEDS: CARVEDILOL 3.125 MG TABLET PO SCH (09:38)
[2017-06-07] MEDS: LINAGLIPTIN 5MG TABLET PO SCH (09:38)
[2017-06-07] MEDS: FOLIC ACID/VITAMIN B COMP W-C TABLET PO SCH (09:38)
[2017-06-07] MEDS: INSULIN LISPRO 100 UNITS/ML SUBCUT SCH ×2 (09:39→13:10)
[2017-06-07] MEDS: INSULIN DETEMIR UD 100 UNITS/ML SYR SUBCUT SCH (09:40)
[2017-06-07] MEDS: SILVER SULFADIAZINE 1% CREAM 25GM TOP SCH (09:43)
[2017-06-07 12:00] VITALS: BP 145/76
[2017-06-07 13:08] VITALS: BP 154/72
== END 2017-06-07 15:00 | disposition home health service (06) | DRG 73 ==
LOC: ER 17:05 → 7WST 22:07 → ENRESERV 22:57 → 7WST 06-03 02:00
PROVIDERS: ADMIT Internal Medicine; ATTEND Internal Medicine
DX: G90.8 Other disorders of autonomic nervous system (principal); E43 Unspecified severe protein-calorie malnutrition; I13.2 Hypertensive heart and chronic kidney disease with heart failure and with stage 5 chronic kidney disease, or end stage renal disease; A04.72 Enterocolitis due to Clostridium difficile, not specified as recurrent; E11.22 Type 2 diabetes mellitus with diabetic chronic kidney disease; I48.91 Unspecified atrial fibrillation; E11.40 Type 2 diabetes mellitus with diabetic neuropathy, unspecified; N18.6 End stage renal disease; I69.354 Hemiplegia and hemiparesis following cerebral infarction affecting left non-dominant side; R55 Syncope and collapse; I50.9 Heart failure, unspecified; D64.9 Anemia, unspecified; E86.9 Volume depletion, unspecified; I25.10 Atherosclerotic heart disease of native coronary artery without angina pectoris; E78.5 Hyperlipidemia, unspecified; F03.90 Unspecified dementia, unspecified severity, without behavioral disturbance, psychotic disturbance, mood disturbance, and anxiety; F17.200 Nicotine dependence, unspecified, uncomplicated; G40.909 Epilepsy, unspecified, not intractable, without status epilepticus; G89.29 Other chronic pain; I87.2 Venous insufficiency (chronic) (peripheral); J44.9 Chronic obstructive pulmonary disease, unspecified; K21.9 Gastro-esophageal reflux disease without esophagitis; K76.0 Fatty (change of) liver, not elsewhere classified; M19.90 Unspecified osteoarthritis, unspecified site; N40.0 Benign prostatic hyperplasia without lower urinary tract symptoms; Z85.528 Personal history of other malignant neoplasm of kidney; Z98.1 Arthrodesis status; Z99.2 Dependence on renal dialysis; Z68.24 Body mass index [BMI] 24.0-24.9, adult; Z88.6 Allergy status to analgesic agent; Z88.8 Allergy status to other drugs, medicaments and biological substances; Z79.899 Other long term (current) drug therapy
CPT/HCPCS: 36415; 70450; 71010; 76705; 78452; 80048; 80053; 80076; 80305; 80307; 82140; 82150; 82248; 82550; 82962; 82977; 83690; 84443; 84484; 85025; 85610; 86038; 86705; 86709; 86803; 87040; 87340; 87493; 90686; 93005; 93017; 93306; 94640; 99285; A6261; A9500; G0482; J1815; J2785; J3370; J7030; J7620

== ENCOUNTER 2017-07-17 10:22 | Inpatient (IN) | payer MEDICARE, MEDICAID ==
[~2017-07-17] VITALS: Ht 172.7 cm; Wt 714.0 kg
[~2017-07-17 10:22] MED LIST changes: -ATOR40TA70 PO; -CITA20TA19 PO; -TAMS0.4C31 PO
[2017-07-17] MEDS ORDERED: IOHEXOL-300 100 ML BOTTLE ONE (11:53)
[2017-07-17 11:59] LABS: BASOPHILS % 0.5 % (0.0-2.0); EOSINOPHILS % 1.2 % (0.0-5.0); HEMATOCRIT. 34.5 % (42.0-52.0); HEMOGLOBIN. 11.1 g/dL (14.0-18.0); LYMPHOCYTES % 8.2 % (20.0-50.0); MEAN CORPUSCULAR HEMOGLOBIN 29.4 pg (28.0-32.0); MEAN CORPUSCULAR VOLUME 91.4 fL (80.0-94.0); MEAN PLATELET VOLUME 8.8 fl (7.4-10.4); MONOCYTES % 9.3 % (2.0-8.0); NEUTROPHILS % 80.8 % (40.0-76.0); PLATELET 276 x1000/uL (130-400); RED BLOOD CELL COUNT 3.77 mill/uL (4.7-6.1); RED CELL DISTRIBUTION WIDTH 15.6 % (11.6-14.6)
[2017-07-17 12:07] LABS: PROTHROMBIN TIME 10.8 sec (9.4-11.6)
[2017-07-17 12:17] LABS: PARTIAL THROMBOPLASTIN TIME < 20.0 sec (23.4-31.0)
[2017-07-17 12:23] LABS: CARBON DIOXIDE 26 mEq/L (21-32); CHLORIDE 109 mEq/L (98-107); TROPONIN I < 0.02 ng/mL (0.00-0.04)
[2017-07-17] MEDS ORDERED: METRONIDAZOLE 500 MG PREMIX 100 ML IV ONE (14:45)
[2017-07-17] MEDS ORDERED: LEVOFLOXACIN 500MG PREMIX 100 ML IV ONE (14:45)
[2017-07-17 20:40] VITALS: BP 155/89
[2017-07-17 20:48] VITALS: BP 155/89
[2017-07-17] MEDS ORDERED: CLONIDINE 0.1MG TABLET PO PRN (22:15)
[2017-07-17] MEDS ORDERED: HYDROCODONE/ACETAMINOPHEN 5/325MG TABLET PO PRN (22:15)
[2017-07-17] MEDS ORDERED: DEXTROSE 50% WATER 50ML SYRINGE IV PRN (22:30)
[2017-07-17] MEDS ORDERED: ZOSYN XX SCH (22:30)
[2017-07-17] MEDS ORDERED: ZOLPIDEM TARTRATE 5MG TABLET PO PRN (22:30)
[2017-07-18 00:05] VITALS: BP 130/77
[2017-07-18] MEDS: PIPERACILLIN/TAZ 2.25G PREMIX 50 ML IV SCH ×4 (00:26→21:03)
[2017-07-18 04:00] VITALS: BP 107/62
[2017-07-18] MEDS: BLOOD SUGAR DIAGNOSTIC STRIP TEST SCH ×4 (07:40→21:03)
[2017-07-18] MEDS ORDERED: ONDANSETRON HCL 4MG/2ML VIAL IV PRN (07:45)
[2017-07-18] MEDS ORDERED: ACETAMINOPHEN 325MG TABLET PO PRN (07:45)
[2017-07-18 08:00] VITALS: BP 115/62
[2017-07-18] MEDS: TAMSULOSIN HCL 0.4MG SR CAPSULE PO SCH (08:00)
[2017-07-18] MEDS: HEPARIN 5000 UNITS/ML VIAL SUBCUT SCH ×2 (09:00→21:02)
[2017-07-18] MEDS: ISOSORB DINIT/HYDRALAZINE HCL 20/37.5MG TABLET PO SCH ×2 (09:00→21:00)
[2017-07-18] MEDS: AMMONIUM LACTATE 12% LOTION 240ML TOP SCH ×2 (09:00→18:39)
[2017-07-18] MEDS: CARVEDILOL 12.5MG TABLET PO SCH ×2 (09:00→21:00)
[2017-07-18] MEDS: LINAGLIPTIN 5MG TABLET PO SCH (10:00)
[2017-07-18] MEDS: DOCUSATE SODIUM 100MG CAPSULE PO SCH ×2 (10:00→17:00)
[2017-07-18] MEDS: CITALOPRAM HYDROBROMIDE 20MG TABLET PO SCH (10:02)
[2017-07-18] MEDS: PANTOPRAZOLE SODIUM 40 MG/VIAL IV SCH (10:02)
[2017-07-18] MEDS: METRONIDAZOLE 500 MG PREMIX 100 ML IV SCH ×2 (10:03→18:39)
[2017-07-18] MEDS: INSULIN LISPRO 100 UNITS/ML SUBCUT SCH ×4 (10:15→21:03)
[2017-07-18 10:33] LABS: BASOPHILS % 0.9 % (0.0-2.0); EOSINOPHILS % 3.3 % (0.0-5.0); HEMATOCRIT. 32.7 % (42.0-52.0); LYMPHOCYTES % 10.9 % (20.0-50.0); MEAN CORPUSCULAR HEMOGLOBIN 30.5 pg (28.0-32.0); MEAN CORPUSCULAR VOLUME 90.7 fL (80.0-94.0); MONOCYTES % 12.1 % (2.0-8.0); NEUTROPHILS % 72.8 % (40.0-76.0); PLATELET 257 x1000/uL (130-400); RED BLOOD CELL COUNT 3.61 mill/uL (4.7-6.1); RED CELL DISTRIBUTION WIDTH 15.7 % (11.6-14.6)
[2017-07-18 10:57] LABS: AMMONIA < 10 uMol/L (<32)
[2017-07-18 11:03] LABS: AMYLASE 29 IU/L (25-115); CARBON DIOXIDE 24 mEq/L (21-32); CHLORIDE 111 mEq/L (98-107)
[2017-07-18 12:00] VITALS: BP 124/75
[2017-07-18 16:00] VITALS: BP 115/69
[2017-07-18 16:01] LABS: CREATINE KINASE MB FRACTION 0.8 ng/mL (0.5-3.6); TROPONIN I < 0.02 ng/mL (0.00-0.04)
[2017-07-18 20:00] VITALS: BP 95/57
[2017-07-18] MEDS: ATORVASTATIN CALCIUM 20MG TABLET PO SCH (21:00)
[2017-07-18 23:11] LABS: CREATINE KINASE MB FRACTION 0.7 ng/mL (0.5-3.6); TROPONIN I < 0.02 ng/mL (0.00-0.04)
[2017-07-19] VITALS: BP 109/63
[2017-07-19] MEDS: METRONIDAZOLE 500 MG PREMIX 100 ML IV SCH ×3 (01:57→17:56)
[2017-07-19 04:00] VITALS: BP 111/55
[2017-07-19] MEDS: PIPERACILLIN/TAZ 2.25G PREMIX 50 ML IV SCH ×3 (05:56→21:33)
[2017-07-19 06:48] LABS: BASOPHILS % 0.8 % (0.0-2.0); EOSINOPHILS % 2.2 % (0.0-5.0); HEMATOCRIT. 32.9 % (42.0-52.0); LYMPHOCYTES % 13.6 % (20.0-50.0); MEAN CORPUSCULAR HEMOGLOBIN 30.4 pg (28.0-32.0); MEAN CORPUSCULAR VOLUME 90.6 fL (80.0-94.0); MEAN PLATELET VOLUME 8.8 fl (7.4-10.4); MONOCYTES % 10.1 % (2.0-8.0); NEUTROPHILS % 73.3 % (40.0-76.0); PLATELET 212 x1000/uL (130-400); RED BLOOD CELL COUNT 3.63 mill/uL (4.7-6.1); RED CELL DISTRIBUTION WIDTH 15.6 % (11.6-14.6)
[2017-07-19 06:59] LABS: CHLORIDE 105 mEq/L (98-107)
[2017-07-19 07:05] LABS: CARBON DIOXIDE 29 mEq/L (21-32); PHOSPHORUS 2.9 mg/dL (2.5-4.9)
[2017-07-19] MEDS: BLOOD SUGAR DIAGNOSTIC STRIP TEST SCH ×4 (07:40→21:38)
[2017-07-19 08:00] VITALS: BP 114/65
[2017-07-19] MEDS: INSULIN LISPRO 100 UNITS/ML SUBCUT SCH ×4 (08:10→21:39)
[2017-07-19] MEDS: DOCUSATE SODIUM 100MG CAPSULE PO SCH ×2 (09:00→17:00)
[2017-07-19] MEDS: ISOSORB DINIT/HYDRALAZINE HCL 20/37.5MG TABLET PO SCH ×2 (09:45→21:00)
[2017-07-19] MEDS: CITALOPRAM HYDROBROMIDE 20MG TABLET PO SCH (09:46)
[2017-07-19] MEDS: FOLIC ACID/VITAMIN B COMP W-C TABLET PO SCH (09:47)
[2017-07-19] MEDS: TAMSULOSIN HCL 0.4MG SR CAPSULE PO SCH (09:47)
[2017-07-19] MEDS: CARVEDILOL 12.5MG TABLET PO SCH ×2 (09:47→21:00)
[2017-07-19] MEDS: LINAGLIPTIN 5MG TABLET PO SCH (09:48)
[2017-07-19] MEDS: AMMONIUM LACTATE 12% LOTION 240ML TOP SCH ×2 (09:49→17:57)
[2017-07-19] MEDS: HEPARIN 5000 UNITS/ML VIAL SUBCUT SCH ×2 (09:49→21:32)
[2017-07-19] MEDS: PANTOPRAZOLE SODIUM 40 MG/VIAL IV SCH (09:49)
[2017-07-19] MEDS ORDERED: SODIUM CHLORIDE 0.9% 250 ML IV ONE (11:30)
[2017-07-19 12:00] VITALS: BP 94/48
[2017-07-19] MEDS ORDERED: SODIUM CHLORIDE 0.9% 250 ML IV SCH (12:00)
[2017-07-19 16:00] VITALS: BP 93/56
[2017-07-19] MEDS ORDERED: SODIUM CHLORIDE 0.9% 500 ML IV SCH (16:15)
[2017-07-19] MEDS: VANCOMYCIN HCL 1000 MG/20 ML ORAL PO SCH ×2 (17:56→23:50)
[2017-07-19] MEDS ORDERED: VANCOMYCIN HCL 1 GM/VIAL PO SCH (18:00)
[2017-07-19 20:00] VITALS: BP 113/62
[2017-07-19] MEDS: ATORVASTATIN CALCIUM 20MG TABLET PO SCH (21:32)
[2017-07-19] MEDS: LAMOTRIGINE 25MG TABLET PO SCH (21:38)
[2017-07-20] VITALS (7 sets, daily range): BP systolic 84–126; BP diastolic 52–66
[2017-07-20] MEDS: METRONIDAZOLE 500 MG PREMIX 100 ML IV SCH ×2 (02:13→09:12)
[2017-07-20] MEDS: PIPERACILLIN/TAZ 2.25G PREMIX 50 ML IV SCH ×3 (05:59→21:13)
[2017-07-20 06:54] LABS: BASOPHILS % 1.1 % (0.0-2.0); EOSINOPHILS % 4.2 % (0.0-5.0); HEMATOCRIT. 29.3 % (42.0-52.0); HEMOGLOBIN. 9.8 g/dL (14.0-18.0); LYMPHOCYTES % 21.3 % (20.0-50.0); MEAN CORPUSCULAR HEMOGLOBIN 30.4 pg (28.0-32.0); MEAN CORPUSCULAR VOLUME 90.7 fL (80.0-94.0); MEAN PLATELET VOLUME 8.7 fl (7.4-10.4); MONOCYTES % 13.5 % (2.0-8.0); NEUTROPHILS % 59.9 % (40.0-76.0); PLATELET 215 x1000/uL (130-400); RED BLOOD CELL COUNT 3.23 mill/uL (4.7-6.1); RED CELL DISTRIBUTION WIDTH 15.5 % (11.6-14.6)
[2017-07-20] MEDS: VANCOMYCIN HCL 1000 MG/20 ML ORAL PO SCH ×4 (07:17→23:31)
[2017-07-20] MEDS: BLOOD SUGAR DIAGNOSTIC STRIP TEST SCH ×4 (07:39→21:13)
[2017-07-20] MEDS: INSULIN LISPRO 100 UNITS/ML SUBCUT SCH ×4 (07:40→21:12)
[2017-07-20 07:41] LABS: CARBON DIOXIDE 23 mEq/L (21-32); CHLORIDE 107 mEq/L (98-107)
[2017-07-20] MEDS: AMMONIUM LACTATE 12% LOTION 240ML TOP SCH ×2 (09:11→16:08)
[2017-07-20] MEDS: ISOSORB DINIT/HYDRALAZINE HCL 20/37.5MG TABLET PO SCH ×2 (09:11→21:00)
[2017-07-20] MEDS: TAMSULOSIN HCL 0.4MG SR CAPSULE PO SCH (09:12)
[2017-07-20] MEDS: PANTOPRAZOLE SODIUM 40 MG/VIAL IV SCH (09:12)
[2017-07-20] MEDS: CITALOPRAM HYDROBROMIDE 20MG TABLET PO SCH (09:13)
[2017-07-20] MEDS: LAMOTRIGINE 25MG TABLET PO SCH (09:13)
[2017-07-20] MEDS: LINAGLIPTIN 5MG TABLET PO SCH (09:13)
[2017-07-20] MEDS: CARVEDILOL 12.5MG TABLET PO SCH ×2 (09:13→21:00)
[2017-07-20] MEDS: FOLIC ACID/VITAMIN B COMP W-C TABLET PO SCH (09:13)
[2017-07-20] MEDS: DOCUSATE SODIUM 100MG CAPSULE PO SCH ×2 (09:13→16:08)
[2017-07-20] MEDS: HEPARIN 5000 UNITS/ML VIAL SUBCUT SCH ×2 (09:14→21:14)
[2017-07-20] MEDS: METRONIDAZOLE 500MG TABLET PO SCH ×2 (16:08→23:31)
[2017-07-20] MEDS: ATORVASTATIN CALCIUM 20MG TABLET PO SCH (21:12)
[2017-07-21] VITALS: BP 107/58
[2017-07-21 04:00] VITALS: BP 126/67
[2017-07-21] MEDS: METRONIDAZOLE 500MG TABLET PO SCH ×3 (05:58→21:31)
[2017-07-21] MEDS: VANCOMYCIN HCL 1000 MG/20 ML ORAL PO SCH ×4 (05:59→23:54)
[2017-07-21] MEDS: PIPERACILLIN/TAZ 2.25G PREMIX 50 ML IV SCH ×3 (05:59→21:34)
[2017-07-21 07:29] LABS: BASOPHILS % 1.3 % (0.0-2.0); EOSINOPHILS % 6.5 % (0.0-5.0); HEMATOCRIT. 29.6 % (42.0-52.0); LYMPHOCYTES % 20.9 % (20.0-50.0); MEAN CORPUSCULAR HEMOGLOBIN 30.5 pg (28.0-32.0); MEAN CORPUSCULAR VOLUME 90.6 fL (80.0-94.0); MEAN PLATELET VOLUME 8.7 fl (7.4-10.4); MONOCYTES % 13.7 % (2.0-8.0); NEUTROPHILS % 57.6 % (40.0-76.0); PLATELET 224 x1000/uL (130-400); RED BLOOD CELL COUNT 3.27 mill/uL (4.7-6.1); RED CELL DISTRIBUTION WIDTH 15.7 % (11.6-14.6)
[2017-07-21] MEDS: BLOOD SUGAR DIAGNOSTIC STRIP TEST SCH ×4 (07:40→21:30)
[2017-07-21 07:43] LABS: CARBON DIOXIDE 22 mEq/L (21-32); CHLORIDE 106 mEq/L (98-107)
[2017-07-21 07:58] VITALS: BP 125/61
[2017-07-21] MEDS: INSULIN LISPRO 100 UNITS/ML SUBCUT SCH ×4 (08:10→21:31)
[2017-07-21] MEDS: CARVEDILOL 12.5MG TABLET PO SCH ×2 (09:00→21:00)
[2017-07-21] MEDS: DOCUSATE SODIUM 100MG CAPSULE PO SCH ×2 (09:00→17:19)
[2017-07-21] MEDS: LINAGLIPTIN 5MG TABLET PO SCH (09:00)
[2017-07-21] MEDS: ISOSORB DINIT/HYDRALAZINE HCL 20/37.5MG TABLET PO SCH ×2 (09:00→21:00)
[2017-07-21] MEDS: FOLIC ACID/VITAMIN B COMP W-C TABLET PO SCH (09:01)
[2017-07-21] MEDS: FAMOTIDINE 20MG TABLET PO SCH (09:01)
[2017-07-21] MEDS: LAMOTRIGINE 25MG TABLET PO SCH (09:01)
[2017-07-21] MEDS: HEPARIN 5000 UNITS/ML VIAL SUBCUT SCH ×2 (09:02→21:31)
[2017-07-21] MEDS: TAMSULOSIN HCL 0.4MG SR CAPSULE PO SCH (09:09)
[2017-07-21] MEDS: AMMONIUM LACTATE 12% LOTION 240ML TOP SCH ×2 (09:10→17:11)
[2017-07-21] MEDS: CITALOPRAM HYDROBROMIDE 20MG TABLET PO SCH (09:16)
[2017-07-21 12:00] VITALS: BP 137/90
[2017-07-21 16:00] VITALS: BP 124/78
[2017-07-21 20:00] VITALS: BP 116/78
[2017-07-21] MEDS: ATORVASTATIN CALCIUM 20MG TABLET PO SCH (21:31)
[2017-07-22] VITALS: BP 101/53
[2017-07-22 04:00] VITALS: BP 122/65
[2017-07-22] MEDS: METRONIDAZOLE 500MG TABLET PO SCH ×3 (05:47→21:06)
[2017-07-22] MEDS: PIPERACILLIN/TAZ 2.25G PREMIX 50 ML IV SCH ×3 (05:48→21:06)
[2017-07-22] MEDS: VANCOMYCIN HCL 1000 MG/20 ML ORAL PO SCH ×3 (05:48→17:03)
[2017-07-22] MEDS: BLOOD SUGAR DIAGNOSTIC STRIP TEST SCH ×4 (06:55→20:50)
[2017-07-22 08:00] VITALS: BP 126/69
[2017-07-22] MEDS: INSULIN LISPRO 100 UNITS/ML SUBCUT SCH ×4 (08:23→21:11)
[2017-07-22] MEDS: DOCUSATE SODIUM 100MG CAPSULE PO SCH ×2 (09:00→16:21)
[2017-07-22] MEDS: CARVEDILOL 12.5MG TABLET PO SCH ×2 (09:00→20:50)
[2017-07-22] MEDS: ISOSORB DINIT/HYDRALAZINE HCL 20/37.5MG TABLET PO SCH ×2 (09:00→20:49)
[2017-07-22] MEDS: FOLIC ACID/VITAMIN B COMP W-C TABLET PO SCH (09:04)
[2017-07-22] MEDS: LAMOTRIGINE 25MG TABLET PO SCH (09:04)
[2017-07-22] MEDS: FAMOTIDINE 20MG TABLET PO SCH (09:04)
[2017-07-22] MEDS: TAMSULOSIN HCL 0.4MG SR CAPSULE PO SCH (09:04)
[2017-07-22] MEDS: HEPARIN 5000 UNITS/ML VIAL SUBCUT SCH ×2 (09:04→20:50)
[2017-07-22] MEDS: LINAGLIPTIN 5MG TABLET PO SCH (09:04)
[2017-07-22] MEDS: CITALOPRAM HYDROBROMIDE 20MG TABLET PO SCH (09:04)
[2017-07-22] MEDS: AMMONIUM LACTATE 12% LOTION 240ML TOP SCH ×2 (09:10→16:28)
[2017-07-22 12:00] VITALS: BP 145/87
[2017-07-22 16:00] VITALS: BP 130/71
[2017-07-22 20:00] VITALS: BP 123/77
[2017-07-22] MEDS: ATORVASTATIN CALCIUM 20MG TABLET PO SCH (20:50)
[2017-07-23 00:27] VITALS: BP 94/57
[2017-07-23] MEDS: VANCOMYCIN HCL 1000 MG/20 ML ORAL PO SCH ×5 (00:37→23:41)
[2017-07-23 04:00] VITALS: BP 102/64
[2017-07-23] MEDS: METRONIDAZOLE 500MG TABLET PO SCH ×3 (05:48→22:21)
[2017-07-23] MEDS: PIPERACILLIN/TAZ 2.25G PREMIX 50 ML IV SCH ×3 (05:48→22:21)
[2017-07-23] MEDS: BLOOD SUGAR DIAGNOSTIC STRIP TEST SCH ×4 (05:49→22:27)
[2017-07-23 06:20] LABS: HEMATOCRIT. 28.8 % (42.0-52.0); HEMOGLOBIN. 9.4 g/dL (14.0-18.0); MEAN CORPUSCULAR HEMOGLOBIN 29.7 pg (28.0-32.0); MEAN CORPUSCULAR VOLUME 90.5 fL (80.0-94.0); MEAN PLATELET VOLUME 8.8 fl (7.4-10.4); PLATELET 181 x1000/uL (130-400); RED BLOOD CELL COUNT 3.18 mill/uL (4.7-6.1); RED CELL DISTRIBUTION WIDTH 15.6 % (11.6-14.6)
[2017-07-23 08:00] VITALS: BP 126/76
[2017-07-23] MEDS: AMMONIUM LACTATE 12% LOTION 240ML TOP SCH ×2 (08:39→17:19)
[2017-07-23] MEDS: INSULIN LISPRO 100 UNITS/ML SUBCUT SCH ×4 (08:40→22:23)
[2017-07-23] MEDS: FOLIC ACID/VITAMIN B COMP W-C TABLET PO SCH (08:40)
[2017-07-23] MEDS: ISOSORB DINIT/HYDRALAZINE HCL 20/37.5MG TABLET PO SCH ×2 (08:41→22:21)
[2017-07-23] MEDS: FAMOTIDINE 20MG TABLET PO SCH (08:41)
[2017-07-23] MEDS: CITALOPRAM HYDROBROMIDE 20MG TABLET PO SCH (08:41)
[2017-07-23] MEDS: TAMSULOSIN HCL 0.4MG SR CAPSULE PO SCH (08:42)
[2017-07-23] MEDS: LAMOTRIGINE 25MG TABLET PO SCH (08:42)
[2017-07-23] MEDS: CARVEDILOL 12.5MG TABLET PO SCH ×2 (08:42→22:21)
[2017-07-23] MEDS: LINAGLIPTIN 5MG TABLET PO SCH (08:42)
[2017-07-23] MEDS: HEPARIN 5000 UNITS/ML VIAL SUBCUT SCH ×2 (08:43→22:21)
[2017-07-23] MEDS: MUPIROCIN 2% OINT 22GM NS SCH ×2 (08:43→22:23)
[2017-07-23] MEDS: DOCUSATE SODIUM 100MG CAPSULE PO SCH ×2 (08:44→16:40)
[2017-07-23 12:00] VITALS: BP 123/73
[2017-07-23 13:41] LABS: PLATELET ESTIMATE NORMAL
[2017-07-23 16:00] VITALS: BP 118/63
[2017-07-23 20:00] VITALS: BP 163/80
[2017-07-23] MEDS: ATORVASTATIN CALCIUM 20MG TABLET PO SCH (22:21)
[2017-07-24] VITALS: BP 110/61
[2017-07-24 04:00] VITALS: BP 100/59
[2017-07-24] MEDS: METRONIDAZOLE 500MG TABLET PO SCH (06:26)
[2017-07-24] MEDS: PIPERACILLIN/TAZ 2.25G PREMIX 50 ML IV SCH (06:26)
[2017-07-24] MEDS: VANCOMYCIN HCL 1000 MG/20 ML ORAL PO SCH (06:27)
[2017-07-24 06:35] VITALS: BP 135/80
[2017-07-24] MEDS: BLOOD SUGAR DIAGNOSTIC STRIP TEST SCH (06:41)
[2017-07-24 08:00] VITALS: BP 135/80
== END 2017-07-24 09:36 | disposition home or self-care (01) | DRG 371 ==
LOC: ER 10:39 → 7WST 14:54 → ENRESERV 16:44 → CANRESERV 16:44 → ENRESERV 19:01
PROVIDERS: ADMIT Internal Medicine; ATTEND Internal Medicine
PROC: 5A1D70Z Performance of Urinary Filtration, Intermittent, Less than 6 Hours Per Day (ICD-10-PCS; 2017-07-18)
PROC: 4A00X4Z Measurement of Central Nervous Electrical Activity, External Approach (ICD-10-PCS; principal; 2017-07-20)
PROC: 5A1D70Z Performance of Urinary Filtration, Intermittent, Less than 6 Hours Per Day (ICD-10-PCS; 2017-07-21)
DX: A04.71 Enterocolitis due to Clostridium difficile, recurrent (principal); N18.6 End stage renal disease; I13.2 Hypertensive heart and chronic kidney disease with heart failure and with stage 5 chronic kidney disease, or end stage renal disease; E46 Unspecified protein-calorie malnutrition; G90.8 Other disorders of autonomic nervous system; I95.9 Hypotension, unspecified; E11.22 Type 2 diabetes mellitus with diabetic chronic kidney disease; E11.42 Type 2 diabetes mellitus with diabetic polyneuropathy; E11.40 Type 2 diabetes mellitus with diabetic neuropathy, unspecified; I50.30 Unspecified diastolic (congestive) heart failure; I69.354 Hemiplegia and hemiparesis following cerebral infarction affecting left non-dominant side; D64.9 Anemia, unspecified; E11.65 Type 2 diabetes mellitus with hyperglycemia; R00.0 Tachycardia, unspecified; M17.0 Bilateral primary osteoarthritis of knee; K21.9 Gastro-esophageal reflux disease without esophagitis; J44.9 Chronic obstructive pulmonary disease, unspecified; E78.5 Hyperlipidemia, unspecified; M19.011 Primary osteoarthritis, right shoulder; F41.9 Anxiety disorder, unspecified; F03.90 Unspecified dementia, unspecified severity, without behavioral disturbance, psychotic disturbance, mood disturbance, and anxiety; F32.9 Major depressive disorder, single episode, unspecified; G40.909 Epilepsy, unspecified, not intractable, without status epilepticus; I25.10 Atherosclerotic heart disease of native coronary artery without angina pectoris; I87.8 Other specified disorders of veins; N40.0 Benign prostatic hyperplasia without lower urinary tract symptoms; Z82.49 Family history of ischemic heart disease and other diseases of the circulatory system; Z83.3 Family history of diabetes mellitus; Z87.891 Personal history of nicotine dependence; Z98.1 Arthrodesis status; Z99.2 Dependence on renal dialysis; Z88.6 Allergy status to analgesic agent; Z88.8 Allergy status to other drugs, medicaments and biological substances; Z79.4 Long term (current) use of insulin; Z79.899 Other long term (current) drug therapy; Z85.528 Personal history of other malignant neoplasm of kidney
CPT/HCPCS: 36415; 70450; 71010; 74177; 80048; 80053; 82140; 82150; 82553; 82962; 83690; 84100; 84484; 85025; 85610; 85730; 87015; 87040; 87045; 87427; 87449; 87493; 93005; 93880; 96365; 96366; 96368; 99291; C1893; C9113; J1644; J1815; J1956; J2543; J3370; J3490; J7030; J7040; Q9967

== ENCOUNTER 2017-07-30 10:19 | Day surgery (SDC) | payer MEDICARE, MEDICAID ==
[~2017-07-30] VITALS: Ht 172.7 cm; Wt 72.0 kg
[2017-07-30 11:23] LABS: BASOPHILS % 0.5 % (0.0-2.0); EOSINOPHILS % 3.9 % (0.0-5.0); HEMATOCRIT. 31.2 % (42.0-52.0); HEMOGLOBIN. 10.6 g/dL (14.0-18.0); LYMPHOCYTES % 11.3 % (20.0-50.0); MEAN CORPUSCULAR HEMOGLOBIN 30.8 pg (28.0-32.0); MEAN CORPUSCULAR VOLUME 90.4 fL (80.0-94.0); MEAN PLATELET VOLUME 8.8 fl (7.4-10.4); MONOCYTES % 11.5 % (2.0-8.0); NEUTROPHILS % 72.8 % (40.0-76.0); PLATELET 263 x1000/uL (130-400); RED BLOOD CELL COUNT 3.45 mill/uL (4.7-6.1); RED CELL DISTRIBUTION WIDTH 16.4 % (11.6-14.6)
[2017-07-30 11:29] LABS: PARTIAL THROMBOPLASTIN TIME 24.1 sec (23.4-31.0); PROTHROMBIN TIME 10.2 sec (9.4-11.6)
[2017-07-30] MEDS ORDERED: BACITRACIN ZINC 15GM TUBE TOP ONE (12:02)
[2017-07-30] MEDS ORDERED: BUPIVACAINE HCL/PF 0.5% (5MG/ML) 10ML ONE (12:03)
[2017-07-30] MEDS ORDERED: NORMAL SALINE 0.9% 10 ML SYR ONE (12:03)
[2017-07-30] MEDS ORDERED: HEPARIN SODIUM 1,000 UNIT/1ML VIAL IV ONE (12:03)
[2017-07-30] MEDS ORDERED: BACITRACIN 50,000 UNITS/VIAL ONE (12:03)
[2017-07-30] MEDS ORDERED: LIDOCAINE HCL 1% 20ML VIAL (Pyxis) INJ ONE (12:03)
[2017-07-30] MEDS ORDERED: THROMBIN (BOVINE) 5000 UNITS/VIAL TOP ONE (12:25)
[2017-07-30] MEDS ORDERED: GELATIN SPONGE,ABSORBABLE SZ 100 ONE (12:25)
[2017-07-30] MEDS ORDERED: SODIUM CHLORIDE 0.9% 500 ML IV NR (12:42)
[2017-07-30] MEDS ORDERED: FENTANYL CITRATE/PF 50MCG/ML 2ML VIAL ONE ×2 (14:34→15:26)
[2017-07-30] MEDS ORDERED: MIDAZOLAM HCL 2 MG/2 ML VIAL ONE ×2 (14:34→15:26)
[2017-07-30] MEDS ORDERED: PAPAVERINE HCL 30 MG/ML 2ML IV ONE (15:07)
[2017-07-30] MEDS ORDERED: LABETALOL 5MG/ML SYR 20 MG/4 ML SYRINGE IV PRN (15:30)
[2017-07-30] MEDS ORDERED: ONDANSETRON HCL 4MG/2ML VIAL IV PRN (15:30)
[2017-07-30] MEDS ORDERED: MEPERIDINE HCL/PF 25MG/ML CPJ IV PRN (15:30)
[2017-07-30] MEDS ORDERED: HYDROMORPHONE HCL/PF 2MG/ML CPJ IV PRN (15:30)
[2017-07-30] MEDS ORDERED: HYDROCODONE/ACETAMINOPHEN 5/325MG TABLET PO PRN ×2 (18:00)
[2017-07-30] MEDS ORDERED: MORPHINE SULFATE 2 MG/ML CPJ (NOT FOR IM USE) IV PRN (18:00)
[2017-07-30] MEDS: HEPARIN SODIUM 1,000 UNIT/1ML VIAL IV NR ×2 (18:31→18:32)
[2017-07-30] MEDS ORDERED: SODIUM CHLORIDE 0.9% INJ 3ML FLUSH IVF SCH (22:00)
== END 2017-07-30 18:30 | disposition home or self-care (01) ==
LOC: OR 10:19
PROVIDERS: ATTEND Surgery Vascular Surgery
DX: I12.0 Hypertensive chronic kidney disease with stage 5 chronic kidney disease or end stage renal disease (principal); E11.22 Type 2 diabetes mellitus with diabetic chronic kidney disease; N18.6 End stage renal disease; I51.7 Cardiomegaly; I25.10 Atherosclerotic heart disease of native coronary artery without angina pectoris; I69.854 Hemiplegia and hemiparesis following other cerebrovascular disease affecting left non-dominant side; E78.00 Pure hypercholesterolemia, unspecified; M13.859 Other specified arthritis, unspecified hip; M13.88 Other specified arthritis, other site; J44.9 Chronic obstructive pulmonary disease, unspecified; F10.21 Alcohol dependence, in remission; Z99.2 Dependence on renal dialysis; Z88.8 Allergy status to other drugs, medicaments and biological substances; Z87.891 Personal history of nicotine dependence; Z98.890 Other specified postprocedural states; Z79.899 Other long term (current) drug therapy
CPT/HCPCS: 36415; 36819; 80048; 85025; 85610; 85730; 93005; A4216; J1644; J2250; J2405; J2440; J3010; J3490; J7040

== ENCOUNTER 2018-09-05 17:47 | Inpatient (IN) | payer MEDICARE, MEDICAID ==
[~2018-09-05] VITALS: Ht 170.2 cm; Wt 72.1 kg
[2018-09-06 00:01] LABS: BASOPHILS % 1.1 % (0.0-2.0); HEMATOCRIT. 36.5 % (42.0-52.0); HEMOGLOBIN. 12.1 g/dL (14.0-18.0); MEAN CORPUSCULAR HEMOGLOBIN 29.7 pg (28.0-32.0); MEAN CORPUSCULAR VOLUME 89.4 fL (80.0-94.0); MEAN PLATELET VOLUME 9.4 fl (7.4-10.4); MONOCYTES % 12.7 % (2.0-8.0); NEUTROPHILS % 67.2 % (40.0-76.0); PLATELET 216 x1000/uL (130-400); RED BLOOD CELL COUNT 4.08 mill/uL (4.7-6.1); RED CELL DISTRIBUTION WIDTH 17.3 % (11.6-14.6)
[2018-09-06 00:09] LABS: PROTHROMBIN TIME 9.9 sec (9.1-11.1)
[2018-09-06 00:11] LABS: CHLORIDE 98 mEq/L (98-107)
[2018-09-06 01:11] LABS: CLARITY URINE CLOUDY (CLEAR); COLOR URINE DARK YELLOW (YELLOW); KETONES URINE TRACE (NEGATIVE); LEUKOCYTE ESTERASE URINE 3+ (NEGATIVE); NITRITE URINE NEGATIVE (NEGATIVE); OCCULT BLOOD URINE TRACE (NEGATIVE); PH URINE 7.5 (4.5-8.0); PROTEIN URINE 1+ (NEGATIVE); SPECIFIC GRAVITY URINE 1.017 (1.005-1.030)
[2018-09-06] MEDS ORDERED: CLINDAMYCIN 600 MG in DEXTROSE 5% WATER 50 ML IV ONE (01:15)
[2018-09-06] MEDS ORDERED: DIPHENHYDRAMINE 50MG/ML VIAL IV PRN (06:00)
[2018-09-06] MEDS ORDERED: DOCUSATE SODIUM 100MG CAPSULE PO PRN (06:00)
[2018-09-06] MEDS ORDERED: IPRATROPIUM/ALBUTEROL 0.5-3(2.5)MG/3ML NEB INH PRN (06:00)
[2018-09-06] MEDS ORDERED: CLONIDINE 0.1MG TABLET PO PRN (06:00)
[2018-09-06] MEDS ORDERED: MORPHINE SULFATE 4 MG/ML CPJ (NOT FOR IM USE) IV PRN (06:00)
[2018-09-06] MEDS ORDERED: LORAZEPAM 2MG/ML CPJ IV PRN (06:00)
[2018-09-06] MEDS ORDERED: MAGNESIUM/ALUMINUM HYDROXIDE/SIMETHICONE 30ML UDC PO PRN (06:00)
[2018-09-06] MEDS ORDERED: HYDROCODONE/ACETAMINOPHEN 10/325MG TABLET PO PRN (06:00)
[2018-09-06] MEDS ORDERED: GUAIFENESIN 200MG/10ML SUGAR FREE UDC PO PRN (06:00)
[2018-09-06] MEDS ORDERED: ACETAMINOPHEN 325MG TABLET PO PRN (06:00)
[2018-09-06] MEDS ORDERED: NA PHOS,M-B/NA PHOS,DI-BA ENEMA 118ML PR PRN (06:00)
[2018-09-06] MEDS ORDERED: ENOXAPARIN 40MG/0.4ML SYR SUBCUT SCH (06:00)
[2018-09-06] MEDS ORDERED: ONDANSETRON HCL 4MG/2ML INJ IV PRN (06:00)
[2018-09-06 08:00] VITALS: BP 95/41
[2018-09-06] MEDS ORDERED: DEXTROSE 50% WATER 50ML SYRINGE IV PRN (08:00)
[2018-09-06] MEDS: ASPIRIN 81MG EC TABLET PO SCH (09:00)
[2018-09-06] MEDS: ENOXAPARIN 30MG/0.3ML SYR SUBCUT SCH (10:11)
[2018-09-06] MEDS ORDERED: PIPERACILLIN/TAZ 3.375G PREMIX 50 ML IV SCH (11:45)
[2018-09-06 12:00] VITALS: BP 98/48
[2018-09-06] MEDS: BLOOD SUGAR DIAGNOSTIC STRIP TEST SCH ×3 (12:20→21:29)
[2018-09-06] MEDS ORDERED: GENTAMICIN 80MG PREMIX 100 ML IV SCH (13:00)
[2018-09-06] MEDS ORDERED: CLINDAMYCIN 600 MG in DEXTROSE 5% WATER 50 ML IV SCH (13:00)
[2018-09-06 13:13] LABS: BG BASE EXCESS 10.4 mmol/L (-2.0-2.0); BG CARBOXYHEMOGLOBIN 0.9 % (0.5-1.5); BG DEOXYHEMOGLOBIN 6.4 % (0.0-5.0); BG FRACTION INSPIRED OXYGEN 21; BG HCO3 ACT 35.1 mmol/L (22.0-26.0); BG METHEMOGLOBIN 0.1 % (0.0-1.5); BG OXYGEN SATURATION 93.5 % (92.0-98.5); BG OXYHEMOGLOBIN 92.6 % (94.0-97.0); BG PCO2 47.7 mmHg (35.0-45.0); BG PH 7.485 (7.350-7.450); BG PO2 68.5 mmHg (75.0-100.0); BG SAMPLE SITE RIGHT BRACHIAL; BG VENT MODE ROOM AIR
[2018-09-06] MEDS: INSULIN LISPRO 100 UNITS/ML SUBCUT SCH ×3 (13:45→21:29)
[2018-09-06 14:10] VITALS: BP 108/58
[2018-09-06] MEDS: PIPERACILLIN/TAZ 2.25G PREMIX 50 ML IV SCH ×2 (15:30→21:28)
[2018-09-06 16:00] VITALS: BP 96/43
[2018-09-06 16:07] LABS: CREATINE KINASE 129 IU/L (39-308)
[2018-09-06 16:08] LABS: CREATINE KINASE MB FRACTION < 1.0 ng/mL (0.5-3.6)
[2018-09-06 20:36] VITALS: BP 101/57
[2018-09-07] VITALS: BP 107/68
[2018-09-07 04:00] VITALS: BP 111/46
[2018-09-07] MEDS: PIPERACILLIN/TAZ 2.25G PREMIX 50 ML IV SCH ×3 (06:19→21:28)
[2018-09-07] MEDS: BLOOD SUGAR DIAGNOSTIC STRIP TEST SCH ×4 (06:19→21:38)
[2018-09-07 07:35] VITALS: BP 104/47
[2018-09-07] MEDS: INSULIN LISPRO 100 UNITS/ML SUBCUT SCH ×4 (08:07→21:38)
[2018-09-07] MEDS: FOLIC ACID/VITAMIN B COMP W-C TABLET PO SCH (08:41)
[2018-09-07] MEDS: ENOXAPARIN 30MG/0.3ML SYR SUBCUT SCH (08:41)
[2018-09-07] MEDS: ASPIRIN 81MG EC TABLET PO SCH (08:41)
[2018-09-07 10:36] LABS: BASOPHILS % 1.1 % (0.0-2.0); EOSINOPHILS % 7.4 % (0.0-5.0); HEMATOCRIT. 31.5 % (42.0-52.0); HEMOGLOBIN. 10.4 g/dL (14.0-18.0); LYMPHOCYTES % 16.8 % (20.0-50.0); MEAN CORPUSCULAR HEMOGLOBIN 29.6 pg (28.0-32.0); MEAN CORPUSCULAR VOLUME 89.8 fL (80.0-94.0); MEAN PLATELET VOLUME 8.6 fl (7.4-10.4); MONOCYTES % 13.9 % (2.0-8.0); NEUTROPHILS % 60.8 % (40.0-76.0); PLATELET 246 x1000/uL (130-400); RED CELL DISTRIBUTION WIDTH 16.7 % (11.6-14.6)
[2018-09-07 12:00] VITALS: BP 114/50
[2018-09-07] MEDS: BENZONATATE 100MG CAPSULE PO SCH ×2 (14:30→21:28)
[2018-09-07 15:24] LABS: CHLORIDE 106 mEq/L (98-107)
[2018-09-07 15:31] LABS: LDL CHOLESTEROL 108 mg/dL (5-100); PHOSPHORUS 2.6 mg/dL (2.5-4.9)
[2018-09-07 15:33] LABS: CREATINE KINASE 112 IU/L (39-308); HDL CHOLESTEROL 39 mg/dL (40-59); T4 FREE 1.39 ng/dL (0.76-1.46)
[2018-09-07 16:00] VITALS: BP 130/51
[2018-09-07 20:00] VITALS: BP 125/63
[2018-09-07] MEDS ORDERED: GENTAMICIN 100MG PREMIX 50 ML IV SCH (20:30)
[2018-09-07] MEDS ORDERED: EPOETIN ALFA 4000UNITS/ML VIAL SUBCUT SCH (21:00)
[2018-09-07] MEDS: CALCITRIOL 0.25MCG CAPSULE PO SCH (21:28)
[2018-09-08] VITALS: BP 120/68
[2018-09-08] MEDS: IPRATROPIUM/ALBUTEROL 0.5-3(2.5)MG/3ML NEB HHN SCH ×4 (00:26→19:56)
[2018-09-08 04:00] VITALS: BP 101/50
[2018-09-08] MEDS: PIPERACILLIN/TAZ 2.25G PREMIX 50 ML IV SCH ×3 (06:21→21:40)
[2018-09-08] MEDS: BENZONATATE 100MG CAPSULE PO SCH ×3 (06:21→21:40)
[2018-09-08] MEDS: BLOOD SUGAR DIAGNOSTIC STRIP TEST SCH ×4 (06:22→20:18)
[2018-09-08 08:03] VITALS: BP 110/56
[2018-09-08] MEDS: FOLIC ACID/VITAMIN B COMP W-C TABLET PO SCH (08:45)
[2018-09-08] MEDS: INSULIN LISPRO 100 UNITS/ML SUBCUT SCH ×4 (08:45→20:22)
[2018-09-08] MEDS: ASPIRIN 81MG EC TABLET PO SCH (08:45)
[2018-09-08] MEDS: ENOXAPARIN 30MG/0.3ML SYR SUBCUT SCH (08:46)
[2018-09-08 12:10] VITALS: BP 104/56
[2018-09-08 16:29] VITALS: BP 100/52
[2018-09-08 20:00] VITALS: BP 105/50
[2018-09-09] VITALS: BP 101/50
[2018-09-09] MEDS: IPRATROPIUM/ALBUTEROL 0.5-3(2.5)MG/3ML NEB HHN SCH ×6 (00:58→20:20)
[2018-09-09 04:00] VITALS: BP 101/58
[2018-09-09] MEDS: BENZONATATE 100MG CAPSULE PO SCH ×3 (06:15→22:10)
[2018-09-09] MEDS: PIPERACILLIN/TAZ 2.25G PREMIX 50 ML IV SCH ×3 (06:15→22:11)
[2018-09-09] MEDS: BLOOD SUGAR DIAGNOSTIC STRIP TEST SCH ×4 (06:22→20:20)
[2018-09-09 08:00] VITALS: BP 99/48
[2018-09-09] MEDS: ENOXAPARIN 30MG/0.3ML SYR SUBCUT SCH (08:08)
[2018-09-09] MEDS: ASPIRIN 81MG EC TABLET PO SCH (08:09)
[2018-09-09] MEDS: FOLIC ACID/VITAMIN B COMP W-C TABLET PO SCH (08:09)
[2018-09-09] MEDS: INSULIN LISPRO 100 UNITS/ML SUBCUT SCH ×4 (08:11→20:21)
[2018-09-09 20:00] VITALS: BP 121/56
[2018-09-10] VITALS: BP 111/59
[2018-09-10] MEDS: IPRATROPIUM/ALBUTEROL 0.5-3(2.5)MG/3ML NEB HHN SCH ×6 (00:18→20:05)
[2018-09-10] MEDS: BENZONATATE 100MG CAPSULE PO SCH ×3 (06:19→20:08)
[2018-09-10] MEDS: PIPERACILLIN/TAZ 2.25G PREMIX 50 ML IV SCH ×3 (06:20→20:07)
[2018-09-10] MEDS: BLOOD SUGAR DIAGNOSTIC STRIP TEST SCH ×4 (06:20→20:39)
[2018-09-10 08:00] VITALS: BP 110/58
[2018-09-10] MEDS: FOLIC ACID/VITAMIN B COMP W-C TABLET PO SCH (08:29)
[2018-09-10] MEDS: CALCITRIOL 0.25MCG CAPSULE PO SCH (08:29)
[2018-09-10] MEDS: ASPIRIN 81MG EC TABLET PO SCH (08:29)
[2018-09-10] MEDS: ENOXAPARIN 30MG/0.3ML SYR SUBCUT SCH (08:30)
[2018-09-10] MEDS: INSULIN LISPRO 100 UNITS/ML SUBCUT SCH ×4 (08:31→20:44)
[2018-09-10 10:11] LABS: BASOPHILS % 0.8 % (0.0-2.0); EOSINOPHILS % 7.2 % (0.0-5.0); HEMATOCRIT. 31.7 % (42.0-52.0); HEMOGLOBIN. 10.4 g/dL (14.0-18.0); LYMPHOCYTES % 16.6 % (20.0-50.0); MEAN CORPUSCULAR HEMOGLOBIN 29.7 pg (28.0-32.0); MEAN CORPUSCULAR VOLUME 90.9 fL (80.0-94.0); MEAN PLATELET VOLUME 8.5 fl (7.4-10.4); MONOCYTES % 10.6 % (2.0-8.0); NEUTROPHILS % 64.8 % (40.0-76.0); PLATELET 278 x1000/uL (130-400); RED BLOOD CELL COUNT 3.49 mill/uL (4.7-6.1); RED CELL DISTRIBUTION WIDTH 17.4 % (11.6-14.6)
[2018-09-10 12:01] VITALS: BP 100/51
[2018-09-10 15:55] VITALS: BP 101/49
[2018-09-10 20:06] VITALS: BP 138/77
[2018-09-11] MEDS: IPRATROPIUM/ALBUTEROL 0.5-3(2.5)MG/3ML NEB HHN SCH ×4 (00:50→11:02)
[2018-09-11] MEDS: BENZONATATE 100MG CAPSULE PO SCH ×2 (04:54→12:17)
[2018-09-11] MEDS: PIPERACILLIN/TAZ 2.25G PREMIX 50 ML IV SCH ×2 (04:54→12:17)
[2018-09-11] MEDS: BLOOD SUGAR DIAGNOSTIC STRIP TEST SCH ×2 (05:07→12:11)
[2018-09-11 08:28] VITALS: BP 124/62
[2018-09-11] MEDS: FOLIC ACID/VITAMIN B COMP W-C TABLET PO SCH (09:44)
[2018-09-11] MEDS: ASPIRIN 81MG EC TABLET PO SCH (09:44)
[2018-09-11] MEDS: INSULIN LISPRO 100 UNITS/ML SUBCUT SCH ×2 (09:44→12:12)
[2018-09-11] MEDS: ENOXAPARIN 30MG/0.3ML SYR SUBCUT SCH (09:45)
[2018-09-11 10:14] VITALS: BP 132/78
[2018-09-11 12:20] VITALS: BP 126/62
[2018-09-11] MEDS ORDERED: GENTAMICIN 80MG PREMIX 100 ML IV SCH (16:00)
[2018-09-11 16:30] VITALS: BP 110/78
== END 2018-09-11 17:40 | disposition home or self-care (01) | DRG 602 ==
LOC: ER 17:47 → 6WST 09-06 01:33 → EDBEDREQDT 09-06 01:39 → EDBEDREQTM 09-06 01:39 → EDBEDREQ 09-06 01:39 → ENRESERV 09-06 02:32
PROVIDERS: ADMIT Internal Medicine; ATTEND Internal Medicine
PROC: 5A1D70Z Performance of Urinary Filtration, Intermittent, Less than 6 Hours Per Day (ICD-10-PCS; principal; 2018-09-06)
PROC: 5A1D70Z Performance of Urinary Filtration, Intermittent, Less than 6 Hours Per Day (ICD-10-PCS; 2018-09-07)
PROC: 5A1D70Z Performance of Urinary Filtration, Intermittent, Less than 6 Hours Per Day (ICD-10-PCS; 2018-09-10)
DX: L03.116 Cellulitis of left lower limb (principal); N18.6 End stage renal disease; J44.1 Chronic obstructive pulmonary disease with (acute) exacerbation; I13.2 Hypertensive heart and chronic kidney disease with heart failure and with stage 5 chronic kidney disease, or end stage renal disease; E46 Unspecified protein-calorie malnutrition; L97.919 Non-pressure chronic ulcer of unspecified part of right lower leg with unspecified severity; N39.0 Urinary tract infection, site not specified; R65.10 Systemic inflammatory response syndrome (SIRS) of non-infectious origin without acute organ dysfunction; I69.354 Hemiplegia and hemiparesis following cerebral infarction affecting left non-dominant side; I47.1 Supraventricular tachycardia; L03.115 Cellulitis of right lower limb; R07.9 Chest pain, unspecified; E11.40 Type 2 diabetes mellitus with diabetic neuropathy, unspecified; I50.9 Heart failure, unspecified; E11.22 Type 2 diabetes mellitus with diabetic chronic kidney disease; E11.51 Type 2 diabetes mellitus with diabetic peripheral angiopathy without gangrene; F32.9 Major depressive disorder, single episode, unspecified; K21.9 Gastro-esophageal reflux disease without esophagitis; D64.9 Anemia, unspecified; E11.622 Type 2 diabetes mellitus with other skin ulcer; N40.0 Benign prostatic hyperplasia without lower urinary tract symptoms; M19.90 Unspecified osteoarthritis, unspecified site; L85.3 Xerosis cutis; G40.909 Epilepsy, unspecified, not intractable, without status epilepticus; F03.90 Unspecified dementia, unspecified severity, without behavioral disturbance, psychotic disturbance, mood disturbance, and anxiety; I25.10 Atherosclerotic heart disease of native coronary artery without angina pectoris; E78.5 Hyperlipidemia, unspecified; Z68.25 Body mass index [BMI] 25.0-25.9, adult; I87.2 Venous insufficiency (chronic) (peripheral); Z99.2 Dependence on renal dialysis; Z79.4 Long term (current) use of insulin; Z85.528 Personal history of other malignant neoplasm of kidney; Z86.19 Personal history of other infectious and parasitic diseases; Z87.891 Personal history of nicotine dependence; Z98.1 Arthrodesis status; Z88.1 Allergy status to other antibiotic agents; Z88.6 Allergy status to analgesic agent
CPT/HCPCS: 36415; 36600; 71045; 71250; 74176; 80048; 80061; 80170; 82375; 82550; 82553; 82805; 82962; 83036; 83605; 83880; 84100; 84439; 84484; 85379; 85651; 87070; 87077; 87186; 92610; 93005; 93306; 93923; 93970; 94640; 96365; 96372; 99285; J1580; J1650; J1815; J2543; J3490; J7050; J7060; J7620

== ENCOUNTER 2018-12-30 17:03 | Inpatient (IN) | payer MEDICARE, MEDICAID ==
[~2018-12-30] VITALS: Ht 170.2 cm; Wt 70.8 kg
[~2018-12-30 17:03] MED LIST changes: -CLON0.1T14 PO
[2018-12-30 18:20] LABS: BASOPHILS % 0.9 % (0.0-2.0); HEMATOCRIT. 33.3 % (42.0-52.0); HEMOGLOBIN. 11.3 g/dL (14.0-18.0); LYMPHOCYTES % 13.8 % (20.0-50.0); MEAN CORPUSCULAR HEMOGLOBIN 30.8 pg (28.0-32.0); MEAN CORPUSCULAR VOLUME 91.3 fL (80.0-94.0); MEAN PLATELET VOLUME 9.2 fl (7.4-10.4); MONOCYTES % 8.6 % (2.0-8.0); NEUTROPHILS % 71.7 % (40.0-76.0); PLATELET 248 x1000/uL (130-400); RED BLOOD CELL COUNT 3.65 mill/uL (4.7-6.1); RED CELL DISTRIBUTION WIDTH 15.4 % (11.6-14.6)
[2018-12-30 18:22] LABS: CHLORIDE 103 mEq/L (98-107)
[2018-12-30] MEDS ORDERED: INSULIN REGULAR (HUMULIN R) 300UNITS/3ML SUBCUT ONE (19:15)
[2018-12-30] MEDS ORDERED: MAGNESIUM/ALUMINUM HYDROXIDE/SIMETHICONE 30ML UDC PO PRN (21:30)
[2018-12-30] MEDS ORDERED: DIPHENHYDRAMINE 50MG/ML VIAL IV PRN (21:30)
[2018-12-30] MEDS ORDERED: ONDANSETRON HCL 4MG/2ML INJ IV PRN (21:30)
[2018-12-30] MEDS ORDERED: GUAIFENESIN 200MG/10ML SUGAR FREE UDC PO PRN (21:30)
[2018-12-30] MEDS ORDERED: DOCUSATE SODIUM 100MG CAPSULE PO PRN (21:30)
[2018-12-30] MEDS ORDERED: ACETAMINOPHEN 325MG TABLET PO PRN (21:30)
[2018-12-30] MEDS ORDERED: IPRATROPIUM/ALBUTEROL 0.5-3(2.5)MG/3ML NEB INH PRN (21:30)
[2018-12-30] MEDS ORDERED: ENOXAPARIN 40MG/0.4ML SYR SUBCUT SCH (21:30)
[2018-12-30] MEDS ORDERED: DEXTROSE 50% WATER 50ML SYRINGE IV PRN (21:30)
[2018-12-30] MEDS ORDERED: LORAZEPAM 2MG/ML CPJ IV PRN (21:30)
[2018-12-30] MEDS ORDERED: HYDROCODONE/ACETAMINOPHEN 5/325MG TABLET PO PRN (21:30)
[2018-12-30] MEDS ORDERED: CLONIDINE 0.1MG TABLET PO PRN (21:30)
[2018-12-30] MEDS ORDERED: HYDRALAZINE 20MG/ML VIAL IV PRN (23:42)
[2018-12-30] MEDS ORDERED: INSULIN REGULAR (HUMULIN R) 300UNITS/3ML SUBCUT SCH ×2 (23:45)
[2018-12-31] VITALS (8 sets, daily range): BP systolic 113–151; BP diastolic 62–81
[2018-12-31] MEDS ORDERED: HYDROMORPHONE HCL/PF 2MG/ML CPJ IV PRN (01:23)
[2018-12-31 02:19] LABS: CREATINE KINASE 75 IU/L (39-308)
[2018-12-31 02:20] LABS: CREATINE KINASE MB FRACTION 1.6 ng/mL (0.5-3.6)
[2018-12-31] MEDS ORDERED: HYDRALAZINE 20MG/ML VIAL IV PRN (05:00)
[2018-12-31] MEDS: SODIUM CHLORIDE 0.9% INJ 3ML FLUSH IVF SCH ×3 (05:32→21:10)
[2018-12-31] MEDS: INSULIN LISPRO 100 UNITS/ML SUBCUT SCH ×4 (06:33→21:10)
[2018-12-31] MEDS: BLOOD SUGAR DIAGNOSTIC STRIP TEST SCH ×4 (06:33→21:10)
[2018-12-31 08:48] LABS: BASOPHILS % 0.6 % (0.0-2.0); EOSINOPHILS % 5.2 % (0.0-5.0); HEMATOCRIT. 32.7 % (42.0-52.0); HEMOGLOBIN. 11.1 g/dL (14.0-18.0); LYMPHOCYTES % 19.1 % (20.0-50.0); MEAN CORPUSCULAR HEMOGLOBIN 30.3 pg (28.0-32.0); MEAN CORPUSCULAR VOLUME 89.7 fL (80.0-94.0); MEAN PLATELET VOLUME 9.1 fl (7.4-10.4); MONOCYTES % 10.3 % (2.0-8.0); NEUTROPHILS % 64.8 % (40.0-76.0); PLATELET 252 x1000/uL (130-400); RED BLOOD CELL COUNT 3.65 mill/uL (4.7-6.1); RED CELL DISTRIBUTION WIDTH 15.4 % (11.6-14.6)
[2018-12-31 09:01] LABS: CHLORIDE 111 mEq/L (98-107)
[2018-12-31] MEDS: ENOXAPARIN 30MG/0.3ML SYR SUBCUT SCH (09:10)
[2018-12-31 09:41] LABS: CREATINE KINASE 71 IU/L (39-308)
[2018-12-31 09:43] LABS: CREATINE KINASE MB FRACTION 1.5 ng/mL (0.5-3.6)
[2018-12-31 10:02] LABS: T4 FREE 1.47 ng/dL (0.76-1.46)
[2018-12-31] MEDS ORDERED: BENZONATATE 100MG CAPSULE PO PRN (11:45)
[2018-12-31] MEDS ORDERED: LACTULOSE 20G/30ML UDC PO PRN (11:45)
[2018-12-31] MEDS: DILTIAZEM HCL 180MG CAPSULE CD 24HR PO SCH (12:00)
[2018-12-31] MEDS: SEVELAMER CARBONATE 800 MG TABLET PO SCH ×2 (13:37→18:13)
[2018-12-31] MEDS: AZITHROMYCIN 500 MG in DEXT 5% WATER 250 ML IV SCH (15:08)
[2019-01-01] VITALS: BP 149/86
[2019-01-01 04:00] VITALS: BP 115/57
[2019-01-01] MEDS: SODIUM CHLORIDE 0.9% INJ 3ML FLUSH IVF SCH ×3 (05:51→21:14)
[2019-01-01] MEDS: BLOOD SUGAR DIAGNOSTIC STRIP TEST SCH ×4 (06:13→21:14)
[2019-01-01] MEDS: INSULIN LISPRO 100 UNITS/ML SUBCUT SCH ×4 (06:13→21:23)
[2019-01-01 06:15] LABS: BASOPHILS % 0.7 % (0.0-2.0); EOSINOPHILS % 4.6 % (0.0-5.0); HEMATOCRIT. 31.8 % (42.0-52.0); HEMOGLOBIN. 10.5 g/dL (14.0-18.0); MEAN PLATELET VOLUME 9.9 fl (7.4-10.4); MONOCYTES % 8.8 % (2.0-8.0); NEUTROPHILS % 69.9 % (40.0-76.0); PLATELET 229 x1000/uL (130-400); RED CELL DISTRIBUTION WIDTH 15.6 % (11.6-14.6)
[2019-01-01 07:32] LABS: PHOSPHORUS 2.2 mg/dL (2.5-4.9)
[2019-01-01 08:00] VITALS: BP 120/73
[2019-01-01] MEDS: SEVELAMER CARBONATE 800 MG TABLET PO SCH ×3 (08:15→16:21)
[2019-01-01] MEDS: DILTIAZEM HCL 180MG CAPSULE CD 24HR PO SCH (08:15)
[2019-01-01] MEDS: FOLIC ACID/VITAMIN B COMP W-C TABLET PO SCH (08:18)
[2019-01-01] MEDS: ENOXAPARIN 30MG/0.3ML SYR SUBCUT SCH (08:18)
[2019-01-01] MEDS ORDERED: SODIUM PHOS,M-BASIC-D-BASIC 15 MM in DEXT 5% WATER 245 ML IV SCH (11:30)
[2019-01-01] MEDS: CHOLECALCIFEROL (D3) 1000 UNIT TABLET PO SCH (12:03)
[2019-01-01] MEDS: AZITHROMYCIN 500 MG in DEXT 5% WATER 250 ML IV SCH (12:03)
[2019-01-01] MEDS ORDERED: MONTELUKAST SODIUM 10MG TABLET PO NR (13:00)
[2019-01-01] MEDS: BENZONATATE 100MG CAPSULE PO SCH ×2 (16:21→21:14)
[2019-01-01 20:00] VITALS: BP 107/44
[2019-01-01] MEDS: ATORVASTATIN CALCIUM 40MG TABLET PO SCH (21:14)
[2019-01-02] VITALS: BP 111/53
[2019-01-02 04:00] VITALS: BP 123/54
[2019-01-02] MEDS: BLOOD SUGAR DIAGNOSTIC STRIP TEST SCH ×4 (06:14→20:38)
[2019-01-02] MEDS: SODIUM CHLORIDE 0.9% INJ 3ML FLUSH IVF SCH ×3 (06:40→21:08)
[2019-01-02] MEDS: BENZONATATE 100MG CAPSULE PO SCH (06:40)
[2019-01-02] MEDS: INSULIN LISPRO 100 UNITS/ML SUBCUT SCH ×4 (06:43→21:07)
[2019-01-02 07:45] LABS: BASOPHILS % 1.1 % (0.0-2.0); EOSINOPHILS % 4.2 % (0.0-5.0); HEMATOCRIT. 29.7 % (42.0-52.0); HEMOGLOBIN. 9.9 g/dL (14.0-18.0); LYMPHOCYTES % 22.7 % (20.0-50.0); MEAN CORPUSCULAR HEMOGLOBIN 30.1 pg (28.0-32.0); MEAN CORPUSCULAR VOLUME 90.5 fL (80.0-94.0); MEAN PLATELET VOLUME 9.3 fl (7.4-10.4); MONOCYTES % 10.7 % (2.0-8.0); NEUTROPHILS % 61.3 % (40.0-76.0); PLATELET 228 x1000/uL (130-400); RED BLOOD CELL COUNT 3.28 mill/uL (4.7-6.1); RED CELL DISTRIBUTION WIDTH 15.5 % (11.6-14.6)
[2019-01-02 08:00] VITALS: BP 179/77
[2019-01-02 08:01] LABS: PHOSPHORUS 3.8 mg/dL (2.5-4.9)
[2019-01-02] MEDS: CHOLECALCIFEROL (D3) 1000 UNIT TABLET PO SCH (09:17)
[2019-01-02] MEDS: DILTIAZEM HCL 180MG CAPSULE CD 24HR PO SCH (09:17)
[2019-01-02] MEDS: FOLIC ACID/VITAMIN B COMP W-C TABLET PO SCH (09:17)
[2019-01-02] MEDS: SEVELAMER CARBONATE 800 MG TABLET PO SCH (09:17)
[2019-01-02] MEDS: ENOXAPARIN 30MG/0.3ML SYR SUBCUT SCH (09:20)
[2019-01-02] MEDS: BENZONATATE 200MG CAPSULE PO SCH ×2 (12:33→16:23)
[2019-01-02] MEDS: AZITHROMYCIN 500 MG in DEXT 5% WATER 250 ML IV SCH (13:45)
[2019-01-02] MEDS: MONTELUKAST SODIUM 10MG TABLET PO SCH (16:37)
[2019-01-02 20:00] VITALS: BP 116/57
[2019-01-02] MEDS: ATORVASTATIN CALCIUM 40MG TABLET PO SCH (20:59)
[2019-01-02] MEDS: EPOETIN ALFA 4000UNITS/ML VIAL SUBCUT SCH (20:59)
[2019-01-02] MEDS ORDERED: EPOETIN ALFA 4000UNITS/ML VIAL SUBCUT SCH (21:00)
[2019-01-03] VITALS: BP 117/59
[2019-01-03 04:00] VITALS: BP 114/52
[2019-01-03] MEDS: BLOOD SUGAR DIAGNOSTIC STRIP TEST SCH ×4 (05:57→21:00)
[2019-01-03] MEDS: SODIUM CHLORIDE 0.9% INJ 3ML FLUSH IVF SCH ×3 (06:01→22:28)
[2019-01-03] MEDS: BENZONATATE 200MG CAPSULE PO SCH ×3 (06:01→22:27)
[2019-01-03] MEDS: INSULIN LISPRO 100 UNITS/ML SUBCUT SCH ×4 (06:04→22:29)
[2019-01-03] MEDS: ENOXAPARIN 30MG/0.3ML SYR SUBCUT SCH (09:16)
[2019-01-03] MEDS: FOLIC ACID/VITAMIN B COMP W-C TABLET PO SCH (09:17)
[2019-01-03] MEDS: CHOLECALCIFEROL (D3) 1000 UNIT TABLET PO SCH (09:17)
[2019-01-03] MEDS: DILTIAZEM HCL 180MG CAPSULE CD 24HR PO SCH (09:17)
[2019-01-03] MEDS: AZITHROMYCIN 500 MG in DEXT 5% WATER 250 ML IV SCH (13:39)
[2019-01-03 15:10] VITALS: BP 126/64
[2019-01-03 20:00] VITALS: BP 115/56
[2019-01-03] MEDS: MONTELUKAST SODIUM 10MG TABLET PO SCH (22:27)
[2019-01-03] MEDS: ATORVASTATIN CALCIUM 40MG TABLET PO SCH (22:27)
[2019-01-04] VITALS (7 sets, daily range): BP systolic 114–143; BP diastolic 52–77
[2019-01-04] MEDS: BLOOD SUGAR DIAGNOSTIC STRIP TEST SCH ×4 (06:10→21:17)
[2019-01-04] MEDS: BENZONATATE 200MG CAPSULE PO SCH ×3 (06:10→18:44)
[2019-01-04] MEDS: SODIUM CHLORIDE 0.9% INJ 3ML FLUSH IVF SCH ×3 (06:10→21:18)
[2019-01-04] MEDS: INSULIN LISPRO 100 UNITS/ML SUBCUT SCH ×4 (06:47→21:41)
[2019-01-04] MEDS: CHOLECALCIFEROL (D3) 1000 UNIT TABLET PO SCH ×2 (09:00→18:46)
[2019-01-04] MEDS: ENOXAPARIN 30MG/0.3ML SYR SUBCUT SCH ×2 (09:00→18:49)
[2019-01-04] MEDS: FOLIC ACID/VITAMIN B COMP W-C TABLET PO SCH ×2 (09:00→18:44)
[2019-01-04] MEDS: DILTIAZEM HCL 180MG CAPSULE CD 24HR PO SCH ×2 (09:00→18:45)
[2019-01-04] MEDS: AZITHROMYCIN 500 MG TABLET PO SCH ×2 (13:00→18:49)
[2019-01-04] MEDS: MONTELUKAST SODIUM 10MG TABLET PO SCH (18:46)
[2019-01-04] MEDS: ATORVASTATIN CALCIUM 40MG TABLET PO SCH (21:17)
[2019-01-04] MEDS: EPOETIN ALFA 4000UNITS/ML VIAL SUBCUT SCH (21:56)
[2019-01-05 04:00] VITALS: BP 107/56
[2019-01-05] MEDS: BLOOD SUGAR DIAGNOSTIC STRIP TEST SCH (05:48)
[2019-01-05] MEDS: BENZONATATE 200MG CAPSULE PO SCH (05:48)
[2019-01-05] MEDS: SODIUM CHLORIDE 0.9% INJ 3ML FLUSH IVF SCH (05:48)
[2019-01-05] MEDS: INSULIN LISPRO 100 UNITS/ML SUBCUT SCH (06:39)
[2019-01-05 08:00] VITALS: BP 130/66
[2019-01-05 11:05] VITALS: BP 130/66
== END 2019-01-05 11:45 | disposition home or self-care (01) | DRG 190 ==
LOC: ER 17:03 → 8WST 20:11 → EDBEDREQ 20:36 → EDBEDREQTM 20:36 → ENRESERV 22:47 → 8WST 12-31 00:45
PROVIDERS: ADMIT Internal Medicine; ATTEND Internal Medicine
PROC: 5A1D70Z Performance of Urinary Filtration, Intermittent, Less than 6 Hours Per Day (ICD-10-PCS; principal; 2019-01-02)
PROC: 5A1D70Z Performance of Urinary Filtration, Intermittent, Less than 6 Hours Per Day (ICD-10-PCS; 2019-01-04)
DX: J44.0 Chronic obstructive pulmonary disease with (acute) lower respiratory infection (principal); N18.6 End stage renal disease; E46 Unspecified protein-calorie malnutrition; I13.2 Hypertensive heart and chronic kidney disease with heart failure and with stage 5 chronic kidney disease, or end stage renal disease; I50.32 Chronic diastolic (congestive) heart failure; I69.354 Hemiplegia and hemiparesis following cerebral infarction affecting left non-dominant side; J20.9 Acute bronchitis, unspecified; J44.1 Chronic obstructive pulmonary disease with (acute) exacerbation; E11.22 Type 2 diabetes mellitus with diabetic chronic kidney disease; D64.9 Anemia, unspecified; F32.9 Major depressive disorder, single episode, unspecified; E78.5 Hyperlipidemia, unspecified; K21.9 Gastro-esophageal reflux disease without esophagitis; N40.0 Benign prostatic hyperplasia without lower urinary tract symptoms; R00.0 Tachycardia, unspecified; E11.40 Type 2 diabetes mellitus with diabetic neuropathy, unspecified; M19.90 Unspecified osteoarthritis, unspecified site; E11.65 Type 2 diabetes mellitus with hyperglycemia; I87.2 Venous insufficiency (chronic) (peripheral); E11.51 Type 2 diabetes mellitus with diabetic peripheral angiopathy without gangrene; E83.39 Other disorders of phosphorus metabolism; N28.89 Other specified disorders of kidney and ureter; G40.909 Epilepsy, unspecified, not intractable, without status epilepticus; I69.322 Dysarthria following cerebral infarction; Z98.1 Arthrodesis status; Z87.440 Personal history of urinary (tract) infections; Z99.2 Dependence on renal dialysis; Z68.24 Body mass index [BMI] 24.0-24.9, adult; Z79.4 Long term (current) use of insulin; Z79.899 Other long term (current) drug therapy; Z88.6 Allergy status to analgesic agent; Z86.19 Personal history of other infectious and parasitic diseases; Z87.891 Personal history of nicotine dependence
CPT/HCPCS: 36415; 71045; 80048; 80061; 82550; 82553; 82962; 83036; 83880; 84100; 84439; 84443; 84484; 85379; 92610; 93005; 93306; 93970; 96372; 96374; 99291; J0360; J0456; J0885; J1650; J1815; J3490; J7050; J7060; A4315

== ENCOUNTER 2019-11-24 00:42 | Inpatient (IN) | payer MEDICARE, MEDICAID ==
[~2019-11-24] VITALS: Ht 172.7 cm; Wt 68.5 kg
[2019-11-24 01:11] LABS: BASOPHILS % 1.2 % (0.0-2.0); EOSINOPHILS % 5.3 % (0.0-5.0); HEMATOCRIT. 38.1 % (42.0-52.0); HEMOGLOBIN. 12.4 g/dL (14.0-18.0); MEAN CORPUSCULAR HEMOGLOBIN 28.6 pg (28.0-32.0); MEAN CORPUSCULAR VOLUME 88.1 fL (80.0-94.0); MEAN PLATELET VOLUME 10.1 fl (7.4-10.4); MONOCYTES % 12.6 % (2.0-8.0); NEUTROPHILS % 57.9 % (40.0-76.0); PLATELET 220 x1000/uL (130-400); RED BLOOD CELL COUNT 4.32 mill/uL (4.7-6.1); RED CELL DISTRIBUTION WIDTH 17.7 % (11.6-14.6)
[2019-11-24 01:16] LABS: CHLORIDE 92 mEq/L (98-107)
[2019-11-24 01:21] LABS: ETHANOL BLOOD < 10 mg/dL
[2019-11-24 01:27] LABS: BETA HYDROXYBUTYRATE 0.6 mMol/L (0.0-0.3)
[2019-11-24 04:44] LABS: CLARITY URINE CLEAR (CLEAR); COLOR URINE YELLOW (YELLOW); KETONES URINE NEGATIVE (NEGATIVE); LEUKOCYTE ESTERASE URINE NEGATIVE (NEGATIVE); NITRITE URINE NEGATIVE (NEGATIVE); OCCULT BLOOD URINE NEGATIVE (NEGATIVE); PH URINE 8.5 (4.5-8.0); PROTEIN URINE 1+ (NEGATIVE); SPECIFIC GRAVITY URINE 1.014 (1.005-1.030); UROBILINOGEN URINE 0.2 E.U./dL (0.2-1.0)
[2019-11-24 05:41] LABS: *AMPHETAMINES SCREEN URINE NEGATIVE (NEGATIVE); *BARBITURATES SCREEN URINE NEGATIVE (NEGATIVE); *BENZODIAZEPINES SCREEN URINE NEGATIVE (NEGATIVE); *COCAINE SCREEN URINE NEGATIVE (NEGATIVE)
[2019-11-24 05:42] LABS: CANNABINOID URINE SCREEN NEGATIVE (NEGATIVE); METHADONE URINE SCREEN NEGATIVE (NEGATIVE); OPIATES URINE SCREEN NEGATIVE (NEGATIVE); PHENCYCLIDINE URINE SCREEN NEGATIVE (NEGATIVE)
[2019-11-24] MEDS ORDERED: DEXTROSE 50% WATER 50ML SYRINGE IV PRN (07:00)
[2019-11-24] MEDS ORDERED: GUAIFENESIN 200MG/10ML SUGAR FREE UDC PO PRN (07:00)
[2019-11-24] MEDS ORDERED: DIPHENHYDRAMINE 50MG/ML VIAL IV PRN (07:00)
[2019-11-24] MEDS ORDERED: ENOXAPARIN 40MG/0.4ML SYR SUBCUT SCH (07:00)
[2019-11-24] MEDS ORDERED: IPRATROPIUM/ALBUTEROL 0.5-3(2.5)MG/3ML NEB NEB PRN (07:00)
[2019-11-24] MEDS ORDERED: ONDANSETRON HCL 4MG/2ML INJ IV PRN (07:00)
[2019-11-24] MEDS ORDERED: MAGNESIUM/ALUMINUM HYDROXIDE/SIMETHICONE 30ML UDC PO PRN (07:00)
[2019-11-24] MEDS ORDERED: DOCUSATE SODIUM 100MG CAPSULE PO PRN (07:00)
[2019-11-24] MEDS ORDERED: NITROGLYCERIN 0.4MG TABLET SL SL PRN (07:00)
[2019-11-24] MEDS: CLONIDINE 0.1MG TABLET PO PRN ×2 (07:52→21:08)
[2019-11-24] MEDS: BLOOD SUGAR DIAGNOSTIC STRIP TEST SCH ×4 (09:00→21:00)
[2019-11-24] MEDS ORDERED: FAMOTIDINE 20MG TABLET PO SCH (09:00)
[2019-11-24] MEDS: ENOXAPARIN 30MG/0.3ML SYR SUBCUT SCH (09:00)
[2019-11-24] MEDS: FAMOTIDINE 20MG TABLET PO SCH (09:01)
[2019-11-24] MEDS: CLOPIDOGREL 75MG TABLET PO SCH (09:01)
[2019-11-24] MEDS: SEVELAMER CARBONATE 800 MG TABLET PO SCH ×2 (09:01→18:10)
[2019-11-24] MEDS: INSULIN LISPRO 100 UNITS/ML SUBCUT SCH ×3 (09:01→22:42)
[2019-11-24] MEDS ORDERED: INSULIN GLARGINE UD 100 UNITS/ML SYR SUBCUT SCH (10:00)
[2019-11-24] MEDS ORDERED: LORAZEPAM 2MG/ML CPJ ONE (13:05)
[2019-11-24 14:00] VITALS: BP 155/79
[2019-11-24 15:03] LABS: CREATINE KINASE 86 IU/L (39-308)
[2019-11-24 15:04] LABS: CREATINE KINASE MB FRACTION < 1.0 ng/mL (0.5-3.6)
[2019-11-24] MEDS ORDERED: LORAZEPAM 2MG/ML CPJ IV NR (15:15)
[2019-11-24] MEDS: CARVEDILOL 6.25 MG TABLET PO SCH (18:00)
[2019-11-24 20:00] VITALS: BP 182/89
[2019-11-24] MEDS ORDERED: ZOLPIDEM TARTRATE 5MG TABLET PO PRN (21:00)
[2019-11-24] MEDS: ATORVASTATIN CALCIUM 40MG TABLET PO SCH (21:08)
[2019-11-24 23:56] LABS: CREATINE KINASE 76 IU/L (39-308); CREATINE KINASE MB FRACTION < 1.0 ng/mL (0.5-3.6)
[2019-11-25 00:10] VITALS: BP 134/71
[2019-11-25 04:00] VITALS: BP 150/81
[2019-11-25] MEDS: CARVEDILOL 6.25 MG TABLET PO SCH ×2 (06:31→17:51)
[2019-11-25] MEDS: INSULIN LISPRO 100 UNITS/ML SUBCUT SCH ×4 (06:51→21:00)
[2019-11-25] MEDS: BLOOD SUGAR DIAGNOSTIC STRIP TEST SCH ×4 (06:51→21:00)
[2019-11-25] MEDS: CLOPIDOGREL 75MG TABLET PO SCH (08:34)
[2019-11-25] MEDS: ENOXAPARIN 30MG/0.3ML SYR SUBCUT SCH (08:34)
[2019-11-25] MEDS: FAMOTIDINE 20MG TABLET PO SCH (08:34)
[2019-11-25] MEDS: SEVELAMER CARBONATE 800 MG TABLET PO SCH ×3 (08:34→17:51)
[2019-11-25 12:00] VITALS: BP 152/73
[2019-11-25] MEDS: INSULIN GLARGINE UD 100 UNITS/ML SYR SUBCUT SCH (12:11)
[2019-11-25 16:00] VITALS: BP 111/63
[2019-11-25 20:00] VITALS: BP_SYST 116; BP_SYST 147; BP_DIAS 66; BP_DIAS 67
[2019-11-25] MEDS: ATORVASTATIN CALCIUM 40MG TABLET PO SCH (22:40)
[2019-11-26] VITALS: BP 120/75
[2019-11-26 05:38] VITALS: BP 162/83
[2019-11-26] MEDS: CARVEDILOL 6.25 MG TABLET PO SCH ×3 (06:34→22:09)
[2019-11-26] MEDS: BLOOD SUGAR DIAGNOSTIC STRIP TEST SCH ×4 (06:35→21:00)
[2019-11-26] MEDS: INSULIN LISPRO 100 UNITS/ML SUBCUT SCH ×4 (08:10→21:00)
[2019-11-26 08:48] VITALS: BP 153/92
[2019-11-26] MEDS: CLOPIDOGREL 75MG TABLET PO SCH (09:37)
[2019-11-26] MEDS: SEVELAMER CARBONATE 800 MG TABLET PO SCH ×3 (09:37→18:07)
[2019-11-26] MEDS: ENOXAPARIN 30MG/0.3ML SYR SUBCUT SCH (09:38)
[2019-11-26] MEDS: ACETAMINOPHEN 325MG TABLET PO PRN (09:46)
[2019-11-26] MEDS: FAMOTIDINE 20MG TABLET PO SCH (09:49)
[2019-11-26] MEDS: INSULIN GLARGINE UD 100 UNITS/ML SYR SUBCUT SCH ×2 (10:00→11:31)
[2019-11-26 16:00] VITALS: BP 130/83
[2019-11-26 20:49] VITALS: BP 169/84
[2019-11-26] MEDS: ATORVASTATIN CALCIUM 40MG TABLET PO SCH (22:09)
[2019-11-27 00:06] VITALS: BP 151/87
[2019-11-27 04:00] VITALS: BP 170/92
[2019-11-27] MEDS: BLOOD SUGAR DIAGNOSTIC STRIP TEST SCH ×2 (06:25→12:00)
[2019-11-27] MEDS: INSULIN LISPRO 100 UNITS/ML SUBCUT SCH ×2 (07:50→12:39)
[2019-11-27 08:00] VITALS: BP 140/44
[2019-11-27] MEDS: FAMOTIDINE 20MG TABLET PO SCH (09:06)
[2019-11-27] MEDS: SEVELAMER CARBONATE 800 MG TABLET PO SCH ×2 (09:06→12:14)
[2019-11-27] MEDS: CLOPIDOGREL 75MG TABLET PO SCH (09:07)
[2019-11-27] MEDS: ENOXAPARIN 30MG/0.3ML SYR SUBCUT SCH (09:13)
[2019-11-27] MEDS: INSULIN GLARGINE UD 100 UNITS/ML SYR SUBCUT SCH (10:00)
[2019-11-27 11:26] VITALS: BP_SYST 140; BP_SYST 155; BP_DIAS 77; BP_DIAS 86
[2019-11-27 12:00] VITALS: BP 155/86
[2019-11-27] MEDS: ACETAMINOPHEN 325MG TABLET PO PRN (12:40)
== END 2019-11-27 15:35 | DRG 637 ==
LOC: ER 00:42 → 7WST 05:40 → SUPCPDRO 06:48 → CANRESERV 09:22 → ENRESERV 09:22 → 6WST 11-26 12:03
PROVIDERS: ADMIT Internal Medicine; ATTEND Internal Medicine
PROC: 5A1D70Z Performance of Urinary Filtration, Intermittent, Less than 6 Hours Per Day (ICD-10-PCS; principal; 2019-11-25)
PROC: 5A1D70Z Performance of Urinary Filtration, Intermittent, Less than 6 Hours Per Day (ICD-10-PCS; 2019-11-27)
DX: E11.00 Type 2 diabetes mellitus with hyperosmolarity without nonketotic hyperglycemic-hyperosmolar coma (NKHHC) (principal); G92 Toxic encephalopathy; N18.6 End stage renal disease; E44.1 Mild protein-calorie malnutrition; E87.1 Hypo-osmolality and hyponatremia; I13.2 Hypertensive heart and chronic kidney disease with heart failure and with stage 5 chronic kidney disease, or end stage renal disease; I50.32 Chronic diastolic (congestive) heart failure; E11.22 Type 2 diabetes mellitus with diabetic chronic kidney disease; E11.65 Type 2 diabetes mellitus with hyperglycemia; E11.40 Type 2 diabetes mellitus with diabetic neuropathy, unspecified; E78.5 Hyperlipidemia, unspecified; G40.909 Epilepsy, unspecified, not intractable, without status epilepticus; J44.9 Chronic obstructive pulmonary disease, unspecified; F03.90 Unspecified dementia, unspecified severity, without behavioral disturbance, psychotic disturbance, mood disturbance, and anxiety; E78.00 Pure hypercholesterolemia, unspecified; K21.9 Gastro-esophageal reflux disease without esophagitis; N40.0 Benign prostatic hyperplasia without lower urinary tract symptoms; E11.51 Type 2 diabetes mellitus with diabetic peripheral angiopathy without gangrene; D63.8 Anemia in other chronic diseases classified elsewhere; Z99.2 Dependence on renal dialysis; Z86.73 Personal history of transient ischemic attack (TIA), and cerebral infarction without residual deficits; Z91.15 Patient's noncompliance with renal dialysis; Z88.6 Allergy status to analgesic agent; Z88.8 Allergy status to other drugs, medicaments and biological substances; Z79.4 Long term (current) use of insulin; Z79.899 Other long term (current) drug therapy; Z68.23 Body mass index [BMI] 23.0-23.9, adult
CPT/HCPCS: 36415; 70551; 71045; 80053; 80061; 80305; 80320; 81003; 82010; 82550; 82553; 82962; 83036; 83605; 83615; 83880; 84443; 84484; 85025; 93005; 93306; 93880; 93970; 97162; 97166; 97530; 99291; J1650; J1815; J2060; G0480

== ENCOUNTER 2019-12-11 11:48 | Inpatient (IN) | payer MEDICARE, MEDICAID ==
[~2019-12-11] VITALS: Ht 172.7 cm; Wt 58.5 kg
[2019-12-11] MEDS ORDERED: ACETAMINOPHEN 325MG TABLET PO STA (13:18)
[2019-12-11] MEDS ORDERED: CEFTRIAXONE 1 G PREMIX 50 ML IV ONE (13:30)
[2019-12-11 15:03] LABS: BASOPHILS % 0.4 % (0.0-2.0); EOSINOPHILS % 0.1 % (0.0-5.0); HEMATOCRIT. 37.6 % (42.0-52.0); HEMOGLOBIN. 12.3 g/dL (14.0-18.0); LYMPHOCYTES % 8.5 % (20.0-50.0); MEAN CORPUSCULAR VOLUME 85.9 fL (80.0-94.0); MEAN PLATELET VOLUME 8.6 fl (7.4-10.4); MONOCYTES % 7.7 % (2.0-8.0); NEUTROPHILS % 83.3 % (40.0-76.0); PLATELET 187 x1000/uL (130-400); RED BLOOD CELL COUNT 4.38 mill/uL (4.7-6.1); RED CELL DISTRIBUTION WIDTH 18.7 % (11.6-14.6)
[2019-12-11 15:12] LABS: INR 0.9; PROTHROMBIN TIME 10.2 sec (9.6-11.0)
[2019-12-11 15:14] LABS: CHLORIDE 102 mEq/L (98-107)
[2019-12-11] MEDS ORDERED: CLONIDINE 0.1MG TABLET PO PRN (15:45)
[2019-12-11] MEDS ORDERED: ONDANSETRON HCL 4MG/2ML INJ IV PRN (15:45)
[2019-12-11] MEDS ORDERED: ENOXAPARIN 30MG/0.3ML SYR SUBCUT SCH (15:45)
[2019-12-11] MEDS ORDERED: PIPERACILLIN/TAZ 3.375G PREMIX 50 ML IV SCH ×2 (15:45)
[2019-12-11] MEDS ORDERED: ENOXAPARIN 40MG/0.4ML SYR SUBCUT SCH (15:45)
[2019-12-11] MEDS ORDERED: GUAIFENESIN/DM 600MG/30MG ER TAB 12HR PO SCH (15:45)
[2019-12-11] MEDS ORDERED: TRAMADOL 50MG TABLET PO PRN (15:45)
[2019-12-11] MEDS ORDERED: DIPHENHYDRAMINE 50MG/ML VIAL IV PRN (15:45)
[2019-12-11] MEDS ORDERED: NITROGLYCERIN 0.4MG TABLET SL SL PRN (15:45)
[2019-12-11] MEDS ORDERED: AZITHROMYCIN 500 MG in DEXT 5% WATER 250 ML IV SCH (15:45)
[2019-12-11] MEDS ORDERED: IPRATROPIUM/ALBUTEROL 0.5-3(2.5)MG/3ML NEB HHN PRN (15:45)
[2019-12-11] MEDS ORDERED: ZOLPIDEM TARTRATE 5MG TABLET PO PRN (15:45)
[2019-12-11] MEDS ORDERED: DOCUSATE SODIUM 100MG CAPSULE PO PRN (15:45)
[2019-12-11] MEDS ORDERED: GUAIFENESIN 200MG/10ML SUGAR FREE UDC PO PRN (15:45)
[2019-12-11] MEDS ORDERED: MAGNESIUM/ALUMINUM HYDROXIDE/SIMETHICONE 30ML UDC PO PRN (15:45)
[2019-12-11 18:12] LABS: CLARITY URINE CLEAR (CLEAR); COLOR URINE YELLOW (YELLOW); KETONES URINE TRACE (NEGATIVE); LEUKOCYTE ESTERASE URINE NEGATIVE (NEGATIVE); NITRITE URINE NEGATIVE (NEGATIVE); OCCULT BLOOD URINE TRACE (NEGATIVE); PH URINE >=9.0 (4.5-8.0); PROTEIN URINE 2+ (NEGATIVE); SPECIFIC GRAVITY URINE 1.014 (1.005-1.030); UROBILINOGEN URINE 0.2 E.U./dL (0.2-1.0)
[2019-12-11 21:00] VITALS: BP 134/74
[2019-12-11] MEDS ORDERED: FAMOTIDINE 20MG TABLET PO SCH (21:00)
[2019-12-11] MEDS ORDERED: VANCOMYCIN 1 G PREMIX 200 ML IV SCH (22:00)
[2019-12-11] MEDS: BLOOD SUGAR DIAGNOSTIC STRIP TEST SCH (22:00)
[2019-12-11 23:38] LABS: CREATINE KINASE 292 IU/L (39-308)
[2019-12-11 23:40] LABS: CREATINE KINASE MB FRACTION < 1.0 ng/mL (0.5-3.6)
[2019-12-12] VITALS: BP 139/80
[2019-12-12] MEDS: ATORVASTATIN CALCIUM 40MG TABLET PO SCH ×2 (01:34→21:10)
[2019-12-12] MEDS: PIPERACILLIN/TAZOBACTAM 2.25 G in DEXTROSE 5% WATER 50 ML IV SCH ×4 (01:34→21:11)
[2019-12-12] MEDS: ASCORBIC ACID 500 MG TABLET PO SCH ×3 (01:35→21:10)
[2019-12-12] MEDS: SEVELAMER CARBONATE 800 MG TABLET PO SCH ×4 (01:35→17:14)
[2019-12-12] MEDS: CARVEDILOL 6.25 MG TABLET PO SCH ×3 (01:37→17:59)
[2019-12-12] MEDS: INSULIN LISPRO 100 UNITS/ML SUBCUT SCH ×5 (02:16→21:00)
[2019-12-12 04:00] VITALS: BP 116/53
[2019-12-12 06:27] LABS: CREATINE KINASE 284 IU/L (39-308)
[2019-12-12 06:28] LABS: CREATINE KINASE MB FRACTION < 1.0 ng/mL (0.5-3.6)
[2019-12-12] MEDS: BLOOD SUGAR DIAGNOSTIC STRIP TEST SCH ×4 (06:50→21:00)
[2019-12-12 08:00] VITALS: BP 81/47
[2019-12-12] MEDS: GUAIFENESIN/DM 600MG/30MG ER TAB 12HR PO SCH ×2 (08:14→21:10)
[2019-12-12] MEDS: ENOXAPARIN 30MG/0.3ML SYR SUBCUT SCH (08:14)
[2019-12-12] MEDS: FAMOTIDINE 20MG TABLET PO SCH (08:14)
[2019-12-12] MEDS: ZINC SULFATE 220 MG ( 50 ) CAPSULE PO SCH (08:14)
[2019-12-12] MEDS ORDERED: ENOXAPARIN 30MG/0.3ML SYR SUBCUT SCH (09:00)
[2019-12-12] MEDS ORDERED: INSULIN GLARGINE UD 100 UNITS/ML SYR SUBCUT SCH (10:00)
[2019-12-12 12:30] VITALS: BP 105/60
[2019-12-12] MEDS: AZITHROMYCIN 500 MG in DEXT 5% WATER 250 ML IV SCH (15:51)
[2019-12-12 16:00] VITALS: BP 139/76
[2019-12-12] MEDS: ACETAMINOPHEN 325MG TABLET PO PRN (17:58)
[2019-12-12] MEDS ORDERED: AZITHROMYCIN 500 MG in DEXT 5% WATER 250 ML IV SCH (18:00)
[2019-12-12 20:00] VITALS: BP 122/65
[2019-12-13] VITALS: BP 123/56
[2019-12-13 04:00] VITALS: BP 137/79
[2019-12-13] MEDS: CARVEDILOL 6.25 MG TABLET PO SCH ×2 (06:08→17:08)
[2019-12-13] MEDS: PIPERACILLIN/TAZOBACTAM 2.25 G in DEXTROSE 5% WATER 50 ML IV SCH ×3 (06:09→20:45)
[2019-12-13] MEDS: BLOOD SUGAR DIAGNOSTIC STRIP TEST SCH ×4 (07:40→20:45)
[2019-12-13] MEDS: INSULIN LISPRO 100 UNITS/ML SUBCUT SCH ×4 (08:10→20:58)
[2019-12-13] MEDS: ZINC SULFATE 220 MG ( 50 ) CAPSULE PO SCH (09:53)
[2019-12-13] MEDS: ASCORBIC ACID 500 MG TABLET PO SCH ×2 (09:53→20:42)
[2019-12-13] MEDS: GUAIFENESIN/DM 600MG/30MG ER TAB 12HR PO SCH ×2 (09:53→20:42)
[2019-12-13] MEDS: ENOXAPARIN 30MG/0.3ML SYR SUBCUT SCH (09:53)
[2019-12-13] MEDS: FAMOTIDINE 20MG TABLET PO SCH (09:53)
[2019-12-13] MEDS: SEVELAMER CARBONATE 800 MG TABLET PO SCH ×3 (09:53→17:08)
[2019-12-13 12:00] VITALS: BP 113/69
[2019-12-13] MEDS: ALBUTEROL 6.7GM HFA INHALER ORI SCH ×2 (12:00→17:09)
[2019-12-13] MEDS: ACETAMINOPHEN 325MG TABLET PO PRN (13:17)
[2019-12-13] MEDS: INSULIN GLARGINE UD 100 UNITS/ML SYR SUBCUT SCH (14:11)
[2019-12-13 16:00] VITALS: BP 106/59
[2019-12-13] MEDS: AZITHROMYCIN 500 MG in DEXT 5% WATER 250 ML IV SCH (17:09)
[2019-12-13] MEDS: ATORVASTATIN CALCIUM 40MG TABLET PO SCH (20:42)
[2019-12-13 20:46] VITALS: BP 110/60
[2019-12-14] VITALS: BP 110/68
[2019-12-14] MEDS: ACETAMINOPHEN 325MG TABLET PO PRN (00:43)
[2019-12-14 04:00] VITALS: BP 94/52
[2019-12-14] MEDS: CARVEDILOL 6.25 MG TABLET PO SCH ×2 (05:49→17:25)
[2019-12-14] MEDS: PIPERACILLIN/TAZOBACTAM 2.25 G in DEXTROSE 5% WATER 50 ML IV SCH ×3 (05:52→21:42)
[2019-12-14] MEDS: ALBUTEROL 6.7GM HFA INHALER ORI SCH ×4 (05:53→19:04)
[2019-12-14] MEDS: BLOOD SUGAR DIAGNOSTIC STRIP TEST SCH ×4 (05:53→22:22)
[2019-12-14 08:00] VITALS: BP 124/78
[2019-12-14] MEDS: INSULIN LISPRO 100 UNITS/ML SUBCUT SCH ×4 (08:55→21:00)
[2019-12-14] MEDS: SEVELAMER CARBONATE 800 MG TABLET PO SCH ×3 (08:59→17:32)
[2019-12-14] MEDS: GUAIFENESIN/DM 600MG/30MG ER TAB 12HR PO SCH ×2 (08:59→21:42)
[2019-12-14] MEDS: FAMOTIDINE 20MG TABLET PO SCH (09:00)
[2019-12-14] MEDS: ASCORBIC ACID 500 MG TABLET PO SCH ×2 (09:00→21:42)
[2019-12-14] MEDS: ENOXAPARIN 30MG/0.3ML SYR SUBCUT SCH (09:00)
[2019-12-14] MEDS: ZINC SULFATE 220 MG ( 50 ) CAPSULE PO SCH (09:01)
[2019-12-14] MEDS: MIDODRINE HCL 2.5MG TABLET PO SCH ×3 (09:55→17:24)
[2019-12-14] MEDS: INSULIN GLARGINE UD 100 UNITS/ML SYR SUBCUT SCH (10:27)
[2019-12-14 12:00] VITALS: BP 88/56
[2019-12-14 16:00] VITALS: BP 102/57
[2019-12-14] MEDS: AZITHROMYCIN 250 MG TABLET PO SCH (17:24)
[2019-12-14] MEDS ORDERED: ALBUMIN HUMAN 12.5GM/50ML (25%) IV SCH (18:00)
[2019-12-14 20:00] VITALS: BP 112/50
[2019-12-14] MEDS: ATORVASTATIN CALCIUM 40MG TABLET PO SCH (21:44)
[2019-12-14] MEDS: DEXTROSE 50% WATER 50ML SYRINGE IV PRN (22:07)
[2019-12-15] VITALS: BP 105/55
[2019-12-15] MEDS: ALBUTEROL 6.7GM HFA INHALER ORI SCH ×5 (00:04→23:07)
[2019-12-15 04:00] VITALS: BP 115/58
[2019-12-15] MEDS: CARVEDILOL 6.25 MG TABLET PO SCH ×2 (05:43→17:50)
[2019-12-15] MEDS: BLOOD SUGAR DIAGNOSTIC STRIP TEST SCH ×4 (05:44→21:15)
[2019-12-15] MEDS: ACETAMINOPHEN 325MG TABLET PO PRN ×3 (05:49→23:08)
[2019-12-15 06:32] LABS: BASOPHILS % 0.5 % (0.0-2.0); EOSINOPHILS % 0.3 % (0.0-5.0); HEMATOCRIT. 35.6 % (42.0-52.0); HEMOGLOBIN. 11.7 g/dL (14.0-18.0); LYMPHOCYTES % 11.3 % (20.0-50.0); MEAN CORPUSCULAR VOLUME 85.5 fL (80.0-94.0); MEAN PLATELET VOLUME 8.6 fl (7.4-10.4); MONOCYTES % 12.3 % (2.0-8.0); NEUTROPHILS % 75.6 % (40.0-76.0); PLATELET 181 x1000/uL (130-400); RED BLOOD CELL COUNT 4.17 mill/uL (4.7-6.1); RED CELL DISTRIBUTION WIDTH 19.3 % (11.6-14.6)
[2019-12-15 08:00] VITALS: BP 110/60
[2019-12-15] MEDS: INSULIN LISPRO 100 UNITS/ML SUBCUT SCH ×4 (08:10→21:00)
[2019-12-15] MEDS: SEVELAMER CARBONATE 800 MG TABLET PO SCH ×3 (09:31→17:39)
[2019-12-15] MEDS: ZINC SULFATE 220 MG ( 50 ) CAPSULE PO SCH (09:32)
[2019-12-15] MEDS: ASCORBIC ACID 500 MG TABLET PO SCH ×2 (09:32→21:14)
[2019-12-15] MEDS: FAMOTIDINE 20MG TABLET PO SCH (09:32)
[2019-12-15] MEDS: GUAIFENESIN/DM 600MG/30MG ER TAB 12HR PO SCH ×2 (09:32→21:14)
[2019-12-15] MEDS: MIDODRINE HCL 2.5MG TABLET PO SCH ×3 (09:33→17:00)
[2019-12-15] MEDS: ENOXAPARIN 30MG/0.3ML SYR SUBCUT SCH (09:34)
[2019-12-15] MEDS: INSULIN GLARGINE UD 100 UNITS/ML SYR SUBCUT SCH (11:51)
[2019-12-15 12:00] VITALS: BP 133/74
[2019-12-15 16:00] VITALS: BP 149/77
[2019-12-15] MEDS: AZITHROMYCIN 250 MG TABLET PO SCH (17:39)
[2019-12-15 20:00] VITALS: BP 118/59
[2019-12-15] MEDS: ATORVASTATIN CALCIUM 40MG TABLET PO SCH (21:14)
[2019-12-15] MEDS: DEXTROSE 50% WATER 50ML SYRINGE IV PRN (21:15)
[2019-12-16] VITALS: BP 123/67
[2019-12-16 05:00] VITALS: BP_SYST 114; BP_SYST 137; BP_DIAS 54; BP_DIAS 80
[2019-12-16] MEDS: CARVEDILOL 6.25 MG TABLET PO SCH ×2 (06:39→17:33)
[2019-12-16] MEDS: ACETAMINOPHEN 325MG TABLET PO PRN ×4 (06:39→21:15)
[2019-12-16] MEDS: BLOOD SUGAR DIAGNOSTIC STRIP TEST SCH ×4 (06:39→21:10)
[2019-12-16] MEDS: ALBUTEROL 6.7GM HFA INHALER ORI SCH ×3 (06:40→18:32)
[2019-12-16] MEDS: DEXTROSE 50% WATER 50ML SYRINGE IV PRN ×2 (06:45→13:24)
[2019-12-16] MEDS: INSULIN LISPRO 100 UNITS/ML SUBCUT SCH ×4 (07:49→21:14)
[2019-12-16 08:00] VITALS: BP 87/49
[2019-12-16] MEDS: INSULIN GLARGINE UD 100 UNITS/ML SYR SUBCUT SCH (10:00)
[2019-12-16] MEDS: ASCORBIC ACID 500 MG TABLET PO SCH ×2 (10:02→21:14)
[2019-12-16] MEDS: FAMOTIDINE 20MG TABLET PO SCH (10:02)
[2019-12-16] MEDS: GUAIFENESIN/DM 600MG/30MG ER TAB 12HR PO SCH ×2 (10:02→21:14)
[2019-12-16] MEDS: ZINC SULFATE 220 MG ( 50 ) CAPSULE PO SCH (10:03)
[2019-12-16] MEDS: ENOXAPARIN 30MG/0.3ML SYR SUBCUT SCH (10:03)
[2019-12-16] MEDS: SEVELAMER CARBONATE 800 MG TABLET PO SCH ×3 (10:03→17:33)
[2019-12-16] MEDS: MIDODRINE HCL 2.5MG TABLET PO SCH ×3 (10:03→16:10)
[2019-12-16 12:00] VITALS: BP 97/48
[2019-12-16 16:00] VITALS: BP 126/61
[2019-12-16] MEDS: AZITHROMYCIN 250 MG TABLET PO SCH (16:14)
[2019-12-16 20:00] VITALS: BP 98/53
[2019-12-16] MEDS: ATORVASTATIN CALCIUM 40MG TABLET PO SCH (21:14)
[2019-12-17] VITALS (7 sets, daily range): BP systolic 86–127; BP diastolic 45–76
[2019-12-17] MEDS: ALBUTEROL 6.7GM HFA INHALER ORI SCH ×4 (00:46→17:42)
[2019-12-17] MEDS: CARVEDILOL 6.25 MG TABLET PO SCH ×2 (05:46→17:34)
[2019-12-17] MEDS: DEXTROSE 50% WATER 50ML SYRINGE IV PRN (06:04)
[2019-12-17] MEDS: BLOOD SUGAR DIAGNOSTIC STRIP TEST SCH ×4 (06:47→21:00)
[2019-12-17 07:23] LABS: BASOPHILS % 0.8 % (0.0-2.0); EOSINOPHILS % 0.9 % (0.0-5.0); HEMATOCRIT. 38.6 % (42.0-52.0); HEMOGLOBIN. 12.6 g/dL (14.0-18.0); MEAN CORPUSCULAR VOLUME 85.4 fL (80.0-94.0); MEAN PLATELET VOLUME 8.4 fl (7.4-10.4); MONOCYTES % 11.5 % (2.0-8.0); NEUTROPHILS % 78.8 % (40.0-76.0); PLATELET 257 x1000/uL (130-400); RED BLOOD CELL COUNT 4.52 mill/uL (4.7-6.1)
[2019-12-17] MEDS: INSULIN LISPRO 100 UNITS/ML SUBCUT SCH ×4 (08:10→21:00)
[2019-12-17] MEDS: SEVELAMER CARBONATE 800 MG TABLET PO SCH ×3 (09:07→17:40)
[2019-12-17] MEDS: ZINC SULFATE 220 MG ( 50 ) CAPSULE PO SCH (09:08)
[2019-12-17] MEDS: ASCORBIC ACID 500 MG TABLET PO SCH ×2 (09:08→22:38)
[2019-12-17] MEDS: GUAIFENESIN/DM 600MG/30MG ER TAB 12HR PO SCH ×2 (09:08→22:37)
[2019-12-17] MEDS: FAMOTIDINE 20MG TABLET PO SCH (09:08)
[2019-12-17] MEDS: ENOXAPARIN 30MG/0.3ML SYR SUBCUT SCH (09:09)
[2019-12-17] MEDS: INSULIN GLARGINE UD 100 UNITS/ML SYR SUBCUT SCH (09:46)
[2019-12-17] MEDS: MIDODRINE HCL 2.5MG TABLET PO SCH ×3 (11:24→17:40)
[2019-12-17] MEDS: ACETAMINOPHEN 325MG TABLET PO PRN (12:21)
[2019-12-17] MEDS: AZITHROMYCIN 250 MG TABLET PO SCH (17:40)
[2019-12-17] MEDS: ATORVASTATIN CALCIUM 40MG TABLET PO SCH (22:37)
[2019-12-18] VITALS (7 sets, daily range): BP systolic 93–128; BP diastolic 49–80
[2019-12-18] MEDS: ALBUTEROL 6.7GM HFA INHALER ORI SCH ×4 (00:17→17:32)
[2019-12-18] MEDS: CARVEDILOL 6.25 MG TABLET PO SCH ×2 (05:00→17:19)
[2019-12-18] MEDS: BLOOD SUGAR DIAGNOSTIC STRIP TEST SCH ×4 (06:56→21:51)
[2019-12-18] MEDS: INSULIN LISPRO 100 UNITS/ML SUBCUT SCH ×4 (08:10→21:00)
[2019-12-18] MEDS: SEVELAMER CARBONATE 800 MG TABLET PO SCH ×3 (09:15→17:30)
[2019-12-18] MEDS: ZINC SULFATE 220 MG ( 50 ) CAPSULE PO SCH (09:15)
[2019-12-18] MEDS: ASCORBIC ACID 500 MG TABLET PO SCH ×2 (09:16→21:51)
[2019-12-18] MEDS: GUAIFENESIN/DM 600MG/30MG ER TAB 12HR PO SCH ×2 (09:16→21:51)
[2019-12-18] MEDS: FAMOTIDINE 20MG TABLET PO SCH (09:16)
[2019-12-18] MEDS: ACETAMINOPHEN 325MG TABLET PO PRN (09:16)
[2019-12-18] MEDS: MIDODRINE HCL 2.5MG TABLET PO SCH ×3 (09:17→17:29)
[2019-12-18] MEDS: ENOXAPARIN 30MG/0.3ML SYR SUBCUT SCH (09:18)
[2019-12-18] MEDS: INSULIN GLARGINE UD 100 UNITS/ML SYR SUBCUT SCH (11:14)
[2019-12-18] MEDS: ATORVASTATIN CALCIUM 40MG TABLET PO SCH (21:51)
[2019-12-19] VITALS: BP 120/61
[2019-12-19] MEDS: ALBUTEROL 6.7GM HFA INHALER ORI SCH ×4 (00:29→17:25)
[2019-12-19 04:00] VITALS: BP 128/69
[2019-12-19] MEDS: CARVEDILOL 6.25 MG TABLET PO SCH ×2 (06:18→17:24)
[2019-12-19 08:00] VITALS: BP 127/62
[2019-12-19] MEDS: INSULIN LISPRO 100 UNITS/ML SUBCUT SCH ×4 (08:10→21:00)
[2019-12-19] MEDS: BLOOD SUGAR DIAGNOSTIC STRIP TEST SCH ×4 (08:28→21:00)
[2019-12-19] MEDS: SEVELAMER CARBONATE 800 MG TABLET PO SCH ×3 (08:51→17:24)
[2019-12-19] MEDS: ASCORBIC ACID 500 MG TABLET PO SCH ×2 (08:51→21:47)
[2019-12-19] MEDS: FAMOTIDINE 20MG TABLET PO SCH (08:51)
[2019-12-19] MEDS: GUAIFENESIN/DM 600MG/30MG ER TAB 12HR PO SCH ×2 (08:51→21:47)
[2019-12-19] MEDS: ZINC SULFATE 220 MG ( 50 ) CAPSULE PO SCH (08:51)
[2019-12-19] MEDS: MIDODRINE HCL 2.5MG TABLET PO SCH (08:53)
[2019-12-19] MEDS: ENOXAPARIN 30MG/0.3ML SYR SUBCUT SCH (08:54)
[2019-12-19] MEDS: INSULIN GLARGINE UD 100 UNITS/ML SYR SUBCUT SCH (10:00)
[2019-12-19 12:00] VITALS: BP 125/62
[2019-12-19] MEDS: MIDODRINE HCL 5MG TABLET PO SCH ×2 (13:28→17:23)
[2019-12-19 16:00] VITALS: BP 136/67
[2019-12-19 20:00] VITALS: BP 90/41
[2019-12-19] MEDS: ATORVASTATIN CALCIUM 40MG TABLET PO SCH (21:47)
[2019-12-20] VITALS: BP 104/51
[2019-12-20 04:00] VITALS: BP 112/60
[2019-12-20] MEDS: CARVEDILOL 6.25 MG TABLET PO SCH ×2 (06:18→17:27)
[2019-12-20] MEDS: BLOOD SUGAR DIAGNOSTIC STRIP TEST SCH ×4 (06:19→21:41)
[2019-12-20 08:00] VITALS: BP 121/62
[2019-12-20] MEDS: MIDODRINE HCL 5MG TABLET PO SCH ×3 (08:31→16:59)
[2019-12-20] MEDS: FAMOTIDINE 20MG TABLET PO SCH (08:31)
[2019-12-20] MEDS: ZINC SULFATE 220 MG ( 50 ) CAPSULE PO SCH (08:31)
[2019-12-20] MEDS: SEVELAMER CARBONATE 800 MG TABLET PO SCH ×3 (08:31→17:30)
[2019-12-20] MEDS: ASCORBIC ACID 500 MG TABLET PO SCH ×2 (08:31→21:41)
[2019-12-20] MEDS: ENOXAPARIN 30MG/0.3ML SYR SUBCUT SCH (08:32)
[2019-12-20] MEDS: INSULIN LISPRO 100 UNITS/ML SUBCUT SCH ×4 (08:32→21:00)
[2019-12-20] MEDS: INSULIN GLARGINE UD 100 UNITS/ML SYR SUBCUT SCH (10:15)
[2019-12-20] MEDS: GUAIFENESIN/DM 600MG/30MG ER TAB 12HR PO SCH ×2 (11:07→21:40)
[2019-12-20 12:00] VITALS: BP 112/63
[2019-12-20 16:00] VITALS: BP 124/67
[2019-12-20 20:00] VITALS: BP 119/64
[2019-12-20] MEDS: ATORVASTATIN CALCIUM 40MG TABLET PO SCH (21:41)
[2019-12-21] VITALS: BP 131/62
[2019-12-21] MEDS: ALBUTEROL 6.7GM HFA INHALER ORI SCH ×4 (00:47→17:21)
[2019-12-21] MEDS: CARVEDILOL 6.25 MG TABLET PO SCH ×2 (06:33→17:19)
[2019-12-21] MEDS: BLOOD SUGAR DIAGNOSTIC STRIP TEST SCH ×4 (07:40→21:38)
[2019-12-21 08:00] VITALS: BP 125/69
[2019-12-21] MEDS: INSULIN LISPRO 100 UNITS/ML SUBCUT SCH ×4 (08:21→21:00)
[2019-12-21] MEDS: ASCORBIC ACID 500 MG TABLET PO SCH ×2 (08:46→21:38)
[2019-12-21] MEDS: ENOXAPARIN 30MG/0.3ML SYR SUBCUT SCH (08:46)
[2019-12-21] MEDS: FAMOTIDINE 20MG TABLET PO SCH (08:46)
[2019-12-21] MEDS: ZINC SULFATE 220 MG ( 50 ) CAPSULE PO SCH (08:46)
[2019-12-21] MEDS: MIDODRINE HCL 5MG TABLET PO SCH ×3 (08:46→17:20)
[2019-12-21] MEDS: GUAIFENESIN/DM 600MG/30MG ER TAB 12HR PO SCH ×2 (08:46→21:38)
[2019-12-21] MEDS: SEVELAMER CARBONATE 800 MG TABLET PO SCH ×3 (08:46→18:48)
[2019-12-21] MEDS: INSULIN GLARGINE UD 100 UNITS/ML SYR SUBCUT SCH (10:24)
[2019-12-21 12:00] VITALS: BP 116/59
[2019-12-21 16:00] VITALS: BP 106/51
[2019-12-21 20:00] VITALS: BP 109/33
[2019-12-21] MEDS: ATORVASTATIN CALCIUM 40MG TABLET PO SCH (21:38)
[2019-12-22] VITALS: BP 134/69
[2019-12-22] MEDS: ALBUTEROL 6.7GM HFA INHALER ORI SCH ×2 (00:39→05:00)
[2019-12-22 04:00] VITALS: BP 141/79
[2019-12-22] MEDS: CARVEDILOL 6.25 MG TABLET PO SCH ×2 (05:00→17:58)
[2019-12-22 06:27] LABS: HEMATOCRIT. 32.7 % (42.0-52.0); HEMOGLOBIN. 10.6 g/dL (14.0-18.0); MEAN CORPUSCULAR HEMOGLOBIN 27.7 pg (28.0-32.0); MEAN CORPUSCULAR VOLUME 85.4 fL (80.0-94.0); MEAN PLATELET VOLUME 9.1 fl (7.4-10.4); PLATELET 443 x1000/uL (130-400); RED BLOOD CELL COUNT 3.84 mill/uL (4.7-6.1); RED CELL DISTRIBUTION WIDTH 19.3 % (11.6-14.6)
[2019-12-22] MEDS: BLOOD SUGAR DIAGNOSTIC STRIP TEST SCH ×4 (06:55→21:46)
[2019-12-22] MEDS: INSULIN LISPRO 100 UNITS/ML SUBCUT SCH ×4 (07:48→21:00)
[2019-12-22 08:00] VITALS: BP 119/65
[2019-12-22] MEDS: MIDODRINE HCL 5MG TABLET PO SCH ×3 (09:00→17:00)
[2019-12-22] MEDS: ZINC SULFATE 220 MG ( 50 ) CAPSULE PO SCH (09:21)
[2019-12-22] MEDS: FAMOTIDINE 20MG TABLET PO SCH (09:21)
[2019-12-22] MEDS: ENOXAPARIN 30MG/0.3ML SYR SUBCUT SCH (09:21)
[2019-12-22] MEDS: SEVELAMER CARBONATE 800 MG TABLET PO SCH ×3 (09:21→17:57)
[2019-12-22] MEDS: ASCORBIC ACID 500 MG TABLET PO SCH ×2 (09:21→21:13)
[2019-12-22] MEDS: GUAIFENESIN/DM 600MG/30MG ER TAB 12HR PO SCH ×2 (09:21→21:13)
[2019-12-22] MEDS: INSULIN GLARGINE UD 100 UNITS/ML SYR SUBCUT SCH (10:21)
[2019-12-22 12:00] VITALS: BP 149/80
[2019-12-22 13:48] LABS: PLATELET ESTIMATE INCREASED
[2019-12-22 16:00] VITALS: BP 118/82
[2019-12-22 20:00] VITALS: BP 116/78
[2019-12-22] MEDS: ATORVASTATIN CALCIUM 40MG TABLET PO SCH (20:39)
[2019-12-23] VITALS (7 sets, daily range): BP systolic 95–144; BP diastolic 51–78
[2019-12-23] MEDS: CARVEDILOL 6.25 MG TABLET PO SCH ×2 (06:09→17:56)
[2019-12-23] MEDS: DEXTROSE 50% WATER 50ML SYRINGE IV PRN (06:43)
[2019-12-23] MEDS: BLOOD SUGAR DIAGNOSTIC STRIP TEST SCH ×4 (06:43→20:47)
[2019-12-23] MEDS: INSULIN LISPRO 100 UNITS/ML SUBCUT SCH ×4 (07:19→20:48)
[2019-12-23] MEDS: FAMOTIDINE 20MG TABLET PO SCH (09:37)
[2019-12-23] MEDS: GUAIFENESIN/DM 600MG/30MG ER TAB 12HR PO SCH ×2 (09:38→20:31)
[2019-12-23] MEDS: ASCORBIC ACID 500 MG TABLET PO SCH ×2 (09:38→20:31)
[2019-12-23] MEDS: ZINC SULFATE 220 MG ( 50 ) CAPSULE PO SCH (09:38)
[2019-12-23] MEDS: MIDODRINE HCL 5MG TABLET PO SCH ×3 (09:38→17:00)
[2019-12-23] MEDS: SEVELAMER CARBONATE 800 MG TABLET PO SCH ×3 (09:38→17:58)
[2019-12-23] MEDS: ENOXAPARIN 30MG/0.3ML SYR SUBCUT SCH (09:38)
[2019-12-23] MEDS: INSULIN GLARGINE UD 100 UNITS/ML SYR SUBCUT SCH (10:00)
[2019-12-23] MEDS: ALBUTEROL 6.7GM HFA INHALER ORI SCH ×2 (12:54→17:58)
[2019-12-23] MEDS: ATORVASTATIN CALCIUM 40MG TABLET PO SCH (22:28)
[2019-12-24] VITALS: BP 144/80
[2019-12-24] MEDS: ALBUTEROL 6.7GM HFA INHALER ORI SCH ×4 (00:30→18:48)
[2019-12-24 04:00] VITALS: BP 129/74
[2019-12-24] MEDS: CARVEDILOL 6.25 MG TABLET PO SCH ×3 (05:33→18:00)
[2019-12-24] MEDS: BLOOD SUGAR DIAGNOSTIC STRIP TEST SCH ×4 (05:52→20:59)
[2019-12-24] MEDS: INSULIN LISPRO 100 UNITS/ML SUBCUT SCH ×4 (05:53→21:00)
[2019-12-24 08:00] VITALS: BP 129/70
[2019-12-24] MEDS: MIDODRINE HCL 5MG TABLET PO SCH ×3 (09:00→17:00)
[2019-12-24] MEDS: ENOXAPARIN 30MG/0.3ML SYR SUBCUT SCH (09:25)
[2019-12-24] MEDS: FAMOTIDINE 20MG TABLET PO SCH (09:25)
[2019-12-24] MEDS: ASCORBIC ACID 500 MG TABLET PO SCH ×2 (09:25→20:59)
[2019-12-24] MEDS: ZINC SULFATE 220 MG ( 50 ) CAPSULE PO SCH (09:25)
[2019-12-24] MEDS: GUAIFENESIN/DM 600MG/30MG ER TAB 12HR PO SCH ×2 (09:26→20:59)
[2019-12-24] MEDS: SEVELAMER CARBONATE 800 MG TABLET PO SCH ×3 (09:26→18:50)
[2019-12-24] MEDS: INSULIN GLARGINE UD 100 UNITS/ML SYR SUBCUT SCH (10:00)
[2019-12-24 12:00] VITALS: BP 103/63
[2019-12-24 20:00] VITALS: BP 104/71
[2019-12-24] MEDS: ATORVASTATIN CALCIUM 40MG TABLET PO SCH (20:59)
[2019-12-25] VITALS (8 sets, daily range): BP systolic 90–114; BP diastolic 48–67
[2019-12-25] MEDS: CARVEDILOL 6.25 MG TABLET PO SCH ×2 (05:02→17:48)
[2019-12-25] MEDS: ALBUTEROL 6.7GM HFA INHALER ORI SCH ×3 (05:59→17:52)
[2019-12-25] MEDS: BLOOD SUGAR DIAGNOSTIC STRIP TEST SCH ×3 (08:14→17:48)
[2019-12-25] MEDS: SEVELAMER CARBONATE 800 MG TABLET PO SCH ×3 (08:14→17:48)
[2019-12-25] MEDS: ASCORBIC ACID 500 MG TABLET PO SCH (08:15)
[2019-12-25] MEDS: ZINC SULFATE 220 MG ( 50 ) CAPSULE PO SCH (08:15)
[2019-12-25] MEDS: FAMOTIDINE 20MG TABLET PO SCH (08:15)
[2019-12-25] MEDS: GUAIFENESIN/DM 600MG/30MG ER TAB 12HR PO SCH (08:15)
[2019-12-25] MEDS: INSULIN LISPRO 100 UNITS/ML SUBCUT SCH ×3 (08:19→17:51)
[2019-12-25] MEDS: MIDODRINE HCL 5MG TABLET PO SCH ×3 (08:24→17:48)
[2019-12-25] MEDS: ENOXAPARIN 30MG/0.3ML SYR SUBCUT SCH (08:25)
[2019-12-25] MEDS: INSULIN GLARGINE UD 100 UNITS/ML SYR SUBCUT SCH (10:59)
== END 2019-12-25 21:00 | DRG 871 ==
LOC: ER 11:48 → 7WST 15:28 → EDBEDREQ 15:30 → EDBEDREQTM 15:30 → ENRESERV 18:53 → EDBEDREQ 19:44
PROVIDERS: ADMIT Internal Medicine; ATTEND Internal Medicine
PROC: 5A1D70Z Performance of Urinary Filtration, Intermittent, Less than 6 Hours Per Day (ICD-10-PCS; principal; 2019-12-11)
PROC: 5A1D70Z Performance of Urinary Filtration, Intermittent, Less than 6 Hours Per Day (ICD-10-PCS; 2019-12-14)
PROC: 5A1D70Z Performance of Urinary Filtration, Intermittent, Less than 6 Hours Per Day (ICD-10-PCS; 2019-12-16)
PROC: 5A1D70Z Performance of Urinary Filtration, Intermittent, Less than 6 Hours Per Day (ICD-10-PCS; 2019-12-18)
PROC: 5A1D70Z Performance of Urinary Filtration, Intermittent, Less than 6 Hours Per Day (ICD-10-PCS; 2019-12-20)
PROC: 5A1D70Z Performance of Urinary Filtration, Intermittent, Less than 6 Hours Per Day (ICD-10-PCS; 2019-12-21)
PROC: 5A1D70Z Performance of Urinary Filtration, Intermittent, Less than 6 Hours Per Day (ICD-10-PCS; 2019-12-24)
DX: A41.89 Other specified sepsis (principal); U07.1 COVID-19; N18.6 End stage renal disease; R65.21 Severe sepsis with septic shock; J96.01 Acute respiratory failure with hypoxia; G92 Toxic encephalopathy; I12.0 Hypertensive chronic kidney disease with stage 5 chronic kidney disease or end stage renal disease; J44.0 Chronic obstructive pulmonary disease with (acute) lower respiratory infection; J44.1 Chronic obstructive pulmonary disease with (acute) exacerbation; Z68.1 Body mass index [BMI] 19.9 or less, adult; E46 Unspecified protein-calorie malnutrition; D63.8 Anemia in other chronic diseases classified elsewhere; D72.810 Lymphocytopenia; E11.22 Type 2 diabetes mellitus with diabetic chronic kidney disease; E11.43 Type 2 diabetes mellitus with diabetic autonomic (poly)neuropathy; E11.51 Type 2 diabetes mellitus with diabetic peripheral angiopathy without gangrene; E78.00 Pure hypercholesterolemia, unspecified; E78.5 Hyperlipidemia, unspecified; E83.51 Hypocalcemia; G40.909 Epilepsy, unspecified, not intractable, without status epilepticus; I87.8 Other specified disorders of veins; J20.8 Acute bronchitis due to other specified organisms; K21.9 Gastro-esophageal reflux disease without esophagitis; J31.0 Chronic rhinitis; N40.0 Benign prostatic hyperplasia without lower urinary tract symptoms; N35.919 Unspecified urethral stricture, male, unspecified site; E87.70 Fluid overload, unspecified; J32.2 Chronic ethmoidal sinusitis; E11.649 Type 2 diabetes mellitus with hypoglycemia without coma; Z79.4 Long term (current) use of insulin; Z98.1 Arthrodesis status; Z99.2 Dependence on renal dialysis; Z86.73 Personal history of transient ischemic attack (TIA), and cerebral infarction without residual deficits; Z88.8 Allergy status to other drugs, medicaments and biological substances; Z79.899 Other long term (current) drug therapy; Z79.891 Long term (current) use of opiate analgesic
CPT/HCPCS: 36415; 71045; 80048; 80053; 80202; 81003; 82550; 82553; 82962; 83036; 83605; 83880; 84145; 84484; 85025; 85379; 86140; 87635; 87804; 93005; 99285; J0456; J0696; J1650; J1815; J2543; J3370; J7060; P9047

== ENCOUNTER 2020-02-28 13:00 | Inpatient (IN) | payer MEDICARE, MEDICAID ==
[~2020-02-28] VITALS: Ht 170.2 cm; Wt 53.6 kg
[2020-02-28 14:01] LABS: BASOPHILS % 1.6 % (0.0-2.0); EOSINOPHILS % 5.1 % (0.0-5.0); HEMATOCRIT. 34.1 % (42.0-52.0); HEMOGLOBIN. 11.4 g/dL (14.0-18.0); LYMPHOCYTES % 22.2 % (20.0-50.0); MEAN CORPUSCULAR HEMOGLOBIN 30.3 pg (28.0-32.0); MEAN CORPUSCULAR VOLUME 90.4 fL (80.0-94.0); MEAN PLATELET VOLUME 7.6 fl (7.4-10.4); MONOCYTES % 12.2 % (2.0-8.0); NEUTROPHILS % 58.9 % (40.0-76.0); PLATELET 385 x1000/uL (130-400); RED BLOOD CELL COUNT 3.78 mill/uL (4.7-6.1); RED CELL DISTRIBUTION WIDTH 19.1 % (11.6-14.6)
[2020-02-28 14:07] LABS: CHLORIDE 105 mEq/L (98-107)
[2020-02-28 14:11] LABS: PROTHROMBIN TIME 10.2 sec (9.6-11.0)
[2020-02-28] MEDS ORDERED: CLONIDINE 0.1MG TABLET PO PRN (17:15)
[2020-02-28] MEDS ORDERED: DEXTROSE 50% WATER 50ML SYRINGE IV PRN (17:15)
[2020-02-28] MEDS ORDERED: IPRATROPIUM/ALBUTEROL 0.5-3(2.5)MG/3ML NEB ORI PRN (17:15)
[2020-02-28] MEDS ORDERED: GUAIFENESIN 200MG/10ML SUGAR FREE UDC PO PRN (17:15)
[2020-02-28] MEDS ORDERED: MAGNESIUM/ALUMINUM HYDROXIDE/SIMETHICONE 30ML UDC PO PRN (17:15)
[2020-02-28] MEDS ORDERED: ONDANSETRON HCL 4MG/2ML INJ IV PRN (17:15)
[2020-02-28] MEDS ORDERED: NITROGLYCERIN 0.4MG TABLET SL SL PRN (17:15)
[2020-02-28] MEDS ORDERED: TRAMADOL 50MG TABLET PO PRN (17:15)
[2020-02-28] MEDS ORDERED: DOCUSATE SODIUM 100MG CAPSULE PO PRN (17:15)
[2020-02-28] MEDS ORDERED: ACETAMINOPHEN 325MG TABLET PO PRN ×2 (17:15)
[2020-02-28] MEDS ORDERED: DESMOPRESSIN ACETATE 4MCG/ML AMP IV ONE (17:15)
[2020-02-28] MEDS ORDERED: DESMOPRESSIN ACETATE 20 MCG in SODIUM CHLORIDE 0.9% 50 ML IV NR (17:45)
[2020-02-28] MEDS: ENOXAPARIN 30MG/0.3ML SYR SUBCUT SCH (18:09)
[2020-02-28] MEDS: INSULIN LISPRO 100 UNITS/ML SUBCUT SCH ×2 (18:16→22:34)
[2020-02-28] MEDS: CARVEDILOL 3.125 MG TABLET PO SCH (18:18)
[2020-02-28] MEDS ORDERED: ZOLPIDEM TARTRATE 5MG TABLET PO PRN (21:00)
[2020-02-28 21:40] VITALS: BP 125/55
[2020-02-28] MEDS: ASCORBIC ACID 500 MG TABLET PO SCH (22:33)
[2020-02-28] MEDS: BLOOD SUGAR DIAGNOSTIC STRIP TEST SCH (22:34)
[2020-02-29 00:18] VITALS: BP 116/55
[2020-02-29 00:25] LABS: CREATINE KINASE 30 IU/L (39-308)
[2020-02-29 00:26] LABS: CREATINE KINASE MB FRACTION < 1.0 ng/mL (0.5-3.6)
[2020-02-29 04:00] VITALS: BP 102/46
[2020-02-29] MEDS: BLOOD SUGAR DIAGNOSTIC STRIP TEST SCH ×4 (06:35→21:37)
[2020-02-29 07:26] LABS: BASOPHILS % 1.7 % (0.0-2.0); EOSINOPHILS % 6.6 % (0.0-5.0); HEMATOCRIT. 31.3 % (42.0-52.0); HEMOGLOBIN. 10.2 g/dL (14.0-18.0); LYMPHOCYTES % 23.7 % (20.0-50.0); MEAN CORPUSCULAR HEMOGLOBIN 30.1 pg (28.0-32.0); MEAN CORPUSCULAR VOLUME 92.4 fL (80.0-94.0); MEAN PLATELET VOLUME 7.7 fl (7.4-10.4); PLATELET 316 x1000/uL (130-400); RED BLOOD CELL COUNT 3.39 mill/uL (4.7-6.1); RED CELL DISTRIBUTION WIDTH 19.4 % (11.6-14.6)
[2020-02-29] MEDS: INSULIN LISPRO 100 UNITS/ML SUBCUT SCH ×4 (07:50→21:36)
[2020-02-29 08:00] VITALS: BP 109/49
[2020-02-29 09:05] LABS: CHLORIDE 109 mEq/L (98-107)
[2020-02-29 09:14] LABS: CREATINE KINASE 26 IU/L (39-308)
[2020-02-29 09:17] LABS: CREATINE KINASE MB FRACTION < 1.0 ng/mL (0.5-3.6)
[2020-02-29] MEDS: ASCORBIC ACID 500 MG TABLET PO SCH ×2 (09:21→21:36)
[2020-02-29] MEDS: ZINC SULFATE 220 MG ( 50 ) CAPSULE PO SCH (09:21)
[2020-02-29] MEDS: CARVEDILOL 3.125 MG TABLET PO SCH ×2 (09:22→21:36)
[2020-02-29] MEDS: FAMOTIDINE 20MG TABLET PO SCH (09:22)
[2020-02-29] MEDS: SEVELAMER CARBONATE 800 MG TABLET PO SCH ×3 (09:23→17:02)
[2020-02-29 12:00] VITALS: BP 112/46
[2020-02-29 16:00] VITALS: BP 138/69
[2020-02-29] MEDS: ENOXAPARIN 30MG/0.3ML SYR SUBCUT SCH (17:02)
[2020-02-29 20:00] VITALS: BP 115/56
[2020-03-01] VITALS: BP 98/41
[2020-03-01 03:43] VITALS: BP 98/41
[2020-03-01] MEDS: BLOOD SUGAR DIAGNOSTIC STRIP TEST SCH ×4 (06:06→21:44)
[2020-03-01 07:26] LABS: HEMATOCRIT. 28.7 % (42.0-52.0); HEMOGLOBIN. 9.6 g/dL (14.0-18.0); MEAN CORPUSCULAR HEMOGLOBIN 30.7 pg (28.0-32.0); MEAN CORPUSCULAR VOLUME 91.4 fL (80.0-94.0); MEAN PLATELET VOLUME 7.7 fl (7.4-10.4); PLATELET 288 x1000/uL (130-400); RED BLOOD CELL COUNT 3.14 mill/uL (4.7-6.1); RED CELL DISTRIBUTION WIDTH 18.6 % (11.6-14.6)
[2020-03-01 08:26] VITALS: BP 121/57
[2020-03-01] MEDS: ZINC SULFATE 220 MG ( 50 ) CAPSULE PO SCH (08:47)
[2020-03-01] MEDS: ASCORBIC ACID 500 MG TABLET PO SCH ×2 (08:47→21:30)
[2020-03-01] MEDS: FAMOTIDINE 20MG TABLET PO SCH (08:47)
[2020-03-01] MEDS: CARVEDILOL 3.125 MG TABLET PO SCH ×2 (08:47→21:31)
[2020-03-01] MEDS: SEVELAMER CARBONATE 800 MG TABLET PO SCH ×3 (08:47→17:50)
[2020-03-01] MEDS: INSULIN LISPRO 100 UNITS/ML SUBCUT SCH ×4 (08:54→21:44)
[2020-03-01 12:15] VITALS: BP 124/62
[2020-03-01] MEDS ORDERED: PAPAVERINE HCL 30 MG/ML 2ML IV ONE (15:28)
[2020-03-01] MEDS ORDERED: LIDOCAINE HCL 1% 20ML VIAL (Pyxis) INJ ONE (15:29)
[2020-03-01] MEDS ORDERED: BACITRACIN 15GM TUBE TOP ONE (15:29)
[2020-03-01] MEDS ORDERED: HEPARIN SODIUM 1,000 UNIT/1ML VIAL IV ONE (15:29)
[2020-03-01] MEDS ORDERED: THROMBIN (BOVINE) 5000 UNITS/VIAL TOP ONE (15:29)
[2020-03-01] MEDS ORDERED: BUPIVACAINE HCL/PF 0.5% (5MG/ML) 10ML ONE (15:30)
[2020-03-01] MEDS ORDERED: BACITRACIN 50,000 UNITS/VIAL ONE (15:30)
[2020-03-01 15:53] VITALS: BP 143/64
[2020-03-01] MEDS ORDERED: HEPARIN 5000 UNITS/ML VIAL ONE (16:32)
[2020-03-01] MEDS ORDERED: ROPIVACAINE HCL 10MG/ML 20 ML VIAL EPI ONE (16:37)
[2020-03-01] MEDS ORDERED: MIDAZOLAM HCL 2 MG/2 ML VIAL ONE (16:44)
[2020-03-01] MEDS ORDERED: LIDOCAINE HCL/PF 1% 10 MG/ML 5ML VIAL ONE (16:44)
[2020-03-01] MEDS ORDERED: PROPOFOL 200MG/20ML VIAL IV ONE (16:44)
[2020-03-01] MEDS ORDERED: GLYCOPYRROLATE 0.2 MG/ML 2ML VIAL ONE (16:44)
[2020-03-01] MEDS ORDERED: ONDANSETRON HCL 4MG/2ML INJ ONE (16:44)
[2020-03-01] MEDS ORDERED: SUCCINYLCHOLINE CHLORIDE 200MG/10ML IV ONE (16:44)
[2020-03-01] MEDS ORDERED: METOCLOPRAMIDE HCL 10MG/2ML VIAL ONE (16:44)
[2020-03-01] MEDS ORDERED: FENTANYL CITRATE/PF 50MCG/ML 2ML VIAL ONE (16:44)
[2020-03-01 17:30] LABS: PLATELET ESTIMATE NORMAL
[2020-03-01] MEDS ORDERED: ONDANSETRON HCL 4MG/2ML INJ IV PRN (17:45)
[2020-03-01] MEDS ORDERED: SODIUM CHLORIDE 0.9% 1,000 ML IV ONE (17:45)
[2020-03-01] MEDS ORDERED: MORPHINE SULFATE 2 MG/ML CPJ (NOT FOR IM USE) IV PRN (17:45)
[2020-03-01] MEDS ORDERED: HYDROMORPHONE HCL/PF 2MG/ML CPJ IV PRN (17:45)
[2020-03-01] MEDS: ENOXAPARIN 30MG/0.3ML SYR SUBCUT SCH (18:00)
[2020-03-01] MEDS ORDERED: SKIN ADHESIVE 0.7 GM EA TOP ONE (18:34)
[2020-03-01 20:00] VITALS: BP 140/70
[2020-03-02] VITALS (17 sets, daily range): BP systolic 109–156; BP diastolic 55–86
[2020-03-02] MEDS: BLOOD SUGAR DIAGNOSTIC STRIP TEST SCH ×4 (07:41→20:37)
[2020-03-02] MEDS: INSULIN LISPRO 100 UNITS/ML SUBCUT SCH ×4 (07:50→20:37)
[2020-03-02] MEDS: SEVELAMER CARBONATE 800 MG TABLET PO SCH ×3 (07:50→17:40)
[2020-03-02] MEDS: FAMOTIDINE 20MG TABLET PO SCH (08:46)
[2020-03-02] MEDS: ASCORBIC ACID 500 MG TABLET PO SCH ×2 (08:46→20:58)
[2020-03-02] MEDS: CARVEDILOL 3.125 MG TABLET PO SCH ×2 (08:46→20:57)
[2020-03-02] MEDS: ZINC SULFATE 220 MG ( 50 ) CAPSULE PO SCH (08:46)
[2020-03-02] MEDS ORDERED: CEFAZOLIN 1000MG PREMIX 50 ML IV SCH (10:00)
[2020-03-02] MEDS ORDERED: LIDOCAINE HCL 1% 20ML VIAL (Pyxis) INJ ONE (10:08)
[2020-03-02] MEDS ORDERED: SODIUM BICARBONATE 4% (2.4MEQ) 5ML VIAL IV ONE (10:08)
[2020-03-02] MEDS ORDERED: FENTANYL CITRATE/PF 50MCG/ML 2ML VIAL ONE (10:11)
[2020-03-02] MEDS ORDERED: CEFAZOLIN 1000MG PREMIX 50 ML IV ONE (10:11)
[2020-03-02] MEDS ORDERED: FENTANYL CITRATE/PF 50MCG/ML 2ML VIAL IV SCH (11:15)
[2020-03-02] MEDS: ENOXAPARIN 30MG/0.3ML SYR SUBCUT SCH (17:40)
[2020-03-02] MEDS ORDERED: EPOETIN ALFA 10000UNITS/ML VIAL SUBCUT SCH (21:00)
[2020-03-03 00:46] VITALS: BP 118/53
[2020-03-03 04:00] VITALS: BP 103/57
[2020-03-03] MEDS: BLOOD SUGAR DIAGNOSTIC STRIP TEST SCH ×2 (06:27→12:50)
[2020-03-03 08:00] VITALS: BP 111/49
[2020-03-03] MEDS: ASCORBIC ACID 500 MG TABLET PO SCH (08:32)
[2020-03-03] MEDS: FAMOTIDINE 20MG TABLET PO SCH (08:32)
[2020-03-03] MEDS: ZINC SULFATE 220 MG ( 50 ) CAPSULE PO SCH (08:32)
[2020-03-03] MEDS: SEVELAMER CARBONATE 800 MG TABLET PO SCH ×2 (08:32→12:53)
[2020-03-03] MEDS: CARVEDILOL 3.125 MG TABLET PO SCH (08:33)
[2020-03-03] MEDS: INSULIN LISPRO 100 UNITS/ML SUBCUT SCH ×2 (08:39→12:58)
[2020-03-03 12:00] VITALS: BP 130/69
[2020-03-03 15:04] VITALS: BP 121/56
== END 2020-03-03 15:40 | DRG 252 ==
LOC: ER 13:23 → 6WST 15:56 → EDBEDREQ 16:03 → EDBEDREQTM 16:03 → ENRESERV 20:13 → EDBEDREQ 21:29
PROVIDERS: ADMIT Internal Medicine; ATTEND Internal Medicine
PROC: 05PY0DZ Removal of Intraluminal Device from Upper Vein, Open Approach (ICD-10-PCS; 2020-03-01)
PROC: 03180KD Bypass Left Brachial Artery to Upper Arm Vein with Nonautologous Tissue Substitute, Open Approach (ICD-10-PCS; 2020-03-01)
PROC: 0JH63XZ Insertion of Tunneled Vascular Access Device into Chest Subcutaneous Tissue and Fascia, Percutaneous Approach (ICD-10-PCS; principal; 2020-03-02)
PROC: 02HV33Z Insertion of Infusion Device into Superior Vena Cava, Percutaneous Approach (ICD-10-PCS; 2020-03-02)
PROC: B5181ZA Fluoroscopy of Superior Vena Cava using Low Osmolar Contrast, Guidance (ICD-10-PCS; 2020-03-02)
PROC: B548ZZA Ultrasonography of Superior Vena Cava, Guidance (ICD-10-PCS; 2020-03-02)
PROC: 5A1D70Z Performance of Urinary Filtration, Intermittent, Less than 6 Hours Per Day (ICD-10-PCS; 2020-03-02)
PROC: 5A1D70Z Performance of Urinary Filtration, Intermittent, Less than 6 Hours Per Day (ICD-10-PCS; 2020-03-03)
DX: T82.838A Hemorrhage due to vascular prosthetic devices, implants and grafts, initial encounter (principal); N18.6 End stage renal disease; D62 Acute posthemorrhagic anemia; I12.0 Hypertensive chronic kidney disease with stage 5 chronic kidney disease or end stage renal disease; E44.0 Moderate protein-calorie malnutrition; Z68.1 Body mass index [BMI] 19.9 or less, adult; E11.22 Type 2 diabetes mellitus with diabetic chronic kidney disease; K21.9 Gastro-esophageal reflux disease without esophagitis; Y84.1 Kidney dialysis as the cause of abnormal reaction of the patient, or of later complication, without mention of misadventure at the time of the procedure; E11.21 Type 2 diabetes mellitus with diabetic nephropathy; E11.40 Type 2 diabetes mellitus with diabetic neuropathy, unspecified; E78.5 Hyperlipidemia, unspecified; G90.8 Other disorders of autonomic nervous system; E11.51 Type 2 diabetes mellitus with diabetic peripheral angiopathy without gangrene; J44.9 Chronic obstructive pulmonary disease, unspecified; N40.0 Benign prostatic hyperplasia without lower urinary tract symptoms; E55.9 Vitamin D deficiency, unspecified; G40.909 Epilepsy, unspecified, not intractable, without status epilepticus; I87.8 Other specified disorders of veins; Z79.4 Long term (current) use of insulin; Z86.73 Personal history of transient ischemic attack (TIA), and cerebral infarction without residual deficits; Z99.2 Dependence on renal dialysis; Y92.89 Other specified places as the place of occurrence of the external cause; Z88.8 Allergy status to other drugs, medicaments and biological substances; Z88.6 Allergy status to analgesic agent; Z98.1 Arthrodesis status; R53.81 Other malaise
CPT/HCPCS: 36415; 36558; 71045; 76937; 77001; 80048; 80053; 82550; 82553; 82962; 83036; 84484; 85025; 86850; 86900; 88304; 93005; 93970; 96372; 99152; 99153; 99285; C1750; C1768; C1769; C1884; J0330; J0690; J0885; J1642; J1644; J1650; J1815; J2250; J2405; J2440; J2597; J2704; J2765; J2795; J3010; J3490; G0500

== ENCOUNTER 2020-04-06 16:09 | Emergency (ER) | payer MEDICARE, MEDICAID ==
[~2020-04-06] VITALS: Ht 175.3 cm; Wt 73.0 kg
[2020-04-06] MEDS ORDERED: VISCOUS LIDOCAINE 2% 15 ML UDC PO ONE (16:30)
[2020-04-06] MEDS ORDERED: CLOPIDOGREL 75MG TABLET PO ONE (16:30)
[2020-04-06] MEDS ORDERED: MAGNESIUM/ALUMINUM HYDROXIDE/SIMETHICONE 30ML UDC PO ONE (16:30)
[2020-04-06 18:12] LABS: BASOPHILS % 0.6 % (0.0-2.0); EOSINOPHILS % 2.1 % (0.0-5.0); HEMATOCRIT. 34.8 % (42.0-52.0); HEMOGLOBIN. 11.5 g/dL (14.0-18.0); LYMPHOCYTES % 9.5 % (20.0-50.0); MEAN CORPUSCULAR HEMOGLOBIN 27.8 pg (28.0-32.0); MEAN CORPUSCULAR VOLUME 84.4 fL (80.0-94.0); MEAN PLATELET VOLUME 8.3 fl (7.4-10.4); MONOCYTES % 7.8 % (2.0-8.0); PLATELET 278 x1000/uL (130-400); RED BLOOD CELL COUNT 4.13 mill/uL (4.7-6.1); RED CELL DISTRIBUTION WIDTH 17.6 % (11.6-14.6)
[2020-04-06 18:17] LABS: CHLORIDE 97 mEq/L (98-107)
[2020-04-06 23:04] VITALS: BP 105/49
== END 2020-04-06 23:01 ==
LOC: ER 16:09
DX: R07.2 Precordial pain (principal); R06.02 Shortness of breath; E11.9 Type 2 diabetes mellitus without complications; I12.0 Hypertensive chronic kidney disease with stage 5 chronic kidney disease or end stage renal disease; E11.22 Type 2 diabetes mellitus with diabetic chronic kidney disease; K21.9 Gastro-esophageal reflux disease without esophagitis; N18.6 End stage renal disease; Z99.2 Dependence on renal dialysis; Z79.4 Long term (current) use of insulin; Z86.73 Personal history of transient ischemic attack (TIA), and cerebral infarction without residual deficits; Z88.6 Allergy status to analgesic agent; Z98.890 Other specified postprocedural states; Z79.899 Other long term (current) drug therapy; Z79.82 Long term (current) use of aspirin
CPT/HCPCS: 36415; 71045; 80053; 83880; 84484; 85025; 93005; 99285

== ENCOUNTER 2020-08-30 12:33 | Inpatient (IN) | payer MEDICARE, MEDICAID ==
[~2020-08-30] VITALS: Ht 162.6 cm; Wt 58.5 kg
[2020-08-30] MEDS ORDERED: MORPHINE SULFATE 2 MG/ML CPJ (NOT FOR IM USE) IV ONE (13:00)
[2020-08-30 13:53] LABS: HEMATOCRIT. 32.2 % (42.0-52.0); HEMOGLOBIN. 10.7 g/dL (14.0-18.0); MEAN CORPUSCULAR HEMOGLOBIN 28.8 pg (28.0-32.0); MEAN CORPUSCULAR VOLUME 86.7 fL (80.0-94.0); MEAN PLATELET VOLUME 7.3 fl (7.4-10.4); PLATELET 404 x1000/uL (130-400); RED BLOOD CELL COUNT 3.72 mill/uL (4.7-6.1); RED CELL DISTRIBUTION WIDTH 15.1 % (11.6-14.6)
[2020-08-30 14:02] LABS: CHLORIDE 95 mEq/L (98-107)
[2020-08-30 14:05] LABS: D-DIMER 1.87 mg/L FEU (<0.50); INR 0.9; PARTIAL THROMBOPLASTIN TIME 24.7 sec (23.4-31.0); PROTHROMBIN TIME 9.9 sec (9.6-11.0)
[2020-08-30] MEDS ORDERED: IPRATROPIUM/ALBUTEROL 0.5-3(2.5)MG/3ML NEB NEB PRN (15:15)
[2020-08-30] MEDS ORDERED: CLONIDINE 0.1MG TABLET PO PRN (15:15)
[2020-08-30] MEDS ORDERED: MAGNESIUM/ALUMINUM HYDROXIDE/SIMETHICONE 30ML UDC PO PRN (15:15)
[2020-08-30] MEDS ORDERED: TRAMADOL 50MG TABLET PO PRN (15:15)
[2020-08-30] MEDS ORDERED: DIPHENHYDRAMINE 50MG/ML VIAL IV PRN (15:15)
[2020-08-30] MEDS ORDERED: DOCUSATE SODIUM 100MG CAPSULE PO PRN (15:15)
[2020-08-30] MEDS ORDERED: DEXTROSE 50% WATER 50ML SYRINGE IV PRN (15:15)
[2020-08-30] MEDS ORDERED: ACETAMINOPHEN 325MG TABLET PO PRN (15:15)
[2020-08-30] MEDS ORDERED: GUAIFENESIN 200MG/10ML SUGAR FREE UDC PO PRN (15:15)
[2020-08-30] MEDS ORDERED: ZOLPIDEM TARTRATE 5MG TABLET PO PRN (15:15)
[2020-08-30] MEDS ORDERED: ONDANSETRON HCL 4MG/2ML INJ IV PRN (15:15)
[2020-08-30] MEDS ORDERED: IOHEXOL-350 100 ML BOTTLE ONE (15:27)
[2020-08-30] MEDS ORDERED: REGADENOSON 0.4 MG/5 ML IV NR (16:15)
[2020-08-30 16:19] LABS: PLATELET ESTIMATE SLIGHTLY INCREASED
[2020-08-30] MEDS: BLOOD SUGAR DIAGNOSTIC STRIP TEST SCH ×2 (17:36→21:00)
[2020-08-30] MEDS: CARVEDILOL 3.125 MG TABLET PO SCH (18:00)
[2020-08-30] MEDS: INSULIN LISPRO 100 UNITS/ML SUBCUT SCH ×2 (18:20→21:00)
[2020-08-30] MEDS: FAMOTIDINE 20MG TABLET PO SCH (18:45)
[2020-08-30] MEDS: ENOXAPARIN 30MG/0.3ML SYR SUBCUT SCH (18:48)
[2020-08-30] MEDS: SEVELAMER CARBONATE 800 MG TABLET PO SCH (19:30)
[2020-08-30] MEDS: ASCORBIC ACID 500 MG TABLET PO SCH (21:15)
[2020-08-30] MEDS: NITROGLYCERIN OINT 1GM/INCH UDPKT TD SCH (22:00)
[2020-08-31 02:46] LABS: CREATINE KINASE 72 IU/L (39-308)
[2020-08-31 02:47] LABS: CREATINE KINASE MB FRACTION 1.1 ng/mL (0.5-3.6)
[2020-08-31 06:22] LABS: HEMATOCRIT. 30.9 % (42.0-52.0); HEMOGLOBIN. 10.5 g/dL (14.0-18.0); MEAN CORPUSCULAR HEMOGLOBIN 29.4 pg (28.0-32.0); MEAN PLATELET VOLUME 7.3 fl (7.4-10.4); PLATELET 387 x1000/uL (130-400); RED BLOOD CELL COUNT 3.59 mill/uL (4.7-6.1); RED CELL DISTRIBUTION WIDTH 14.8 % (11.6-14.6)
[2020-08-31 06:33] LABS: CHLORIDE 95 mEq/L (98-107)
[2020-08-31] MEDS: BLOOD SUGAR DIAGNOSTIC STRIP TEST SCH ×4 (06:39→21:00)
[2020-08-31 06:45] LABS: CREATINE KINASE 57 IU/L (39-308)
[2020-08-31 06:47] LABS: CREATINE KINASE MB FRACTION < 1.0 ng/mL (0.5-3.6)
[2020-08-31] MEDS: INSULIN LISPRO 100 UNITS/ML SUBCUT SCH ×4 (07:00→21:00)
[2020-08-31] MEDS: CARVEDILOL 3.125 MG TABLET PO SCH ×2 (07:00→19:24)
[2020-08-31] MEDS: SEVELAMER CARBONATE 800 MG TABLET PO SCH ×3 (07:00→19:18)
[2020-08-31] MEDS ORDERED: ASPIRIN 325MG EC TABLET PO SCH (09:00)
[2020-08-31] MEDS: FAMOTIDINE 20MG TABLET PO SCH (09:00)
[2020-08-31] MEDS: ZINC SULFATE 220 MG ( 50 ) CAPSULE PO SCH (09:00)
[2020-08-31] MEDS: ASCORBIC ACID 500 MG TABLET PO SCH ×2 (09:00→22:27)
[2020-08-31 13:30] LABS: PLATELET ESTIMATE NORMAL
[2020-08-31 16:00] VITALS: BP 124/64
[2020-08-31] MEDS: ENOXAPARIN 30MG/0.3ML SYR SUBCUT SCH (19:18)
[2020-08-31 20:00] VITALS: BP 111/56
[2020-08-31] MEDS: NITROGLYCERIN OINT 1GM/INCH UDPKT TD SCH (22:28)
[2020-08-31 23:00] VITALS: BP 102/56
[2020-09-01] VITALS: BP 98/57
[2020-09-01 04:00] VITALS: BP 103/47
[2020-09-01] MEDS: CARVEDILOL 3.125 MG TABLET PO SCH ×2 (06:00→18:00)
[2020-09-01] MEDS: NITROGLYCERIN OINT 1GM/INCH UDPKT TD SCH ×3 (06:00→21:26)
[2020-09-01] MEDS: BLOOD SUGAR DIAGNOSTIC STRIP TEST SCH ×4 (06:29→21:27)
[2020-09-01 06:36] LABS: HEMATOCRIT. 29.5 % (42.0-52.0); MEAN CORPUSCULAR HEMOGLOBIN 29.7 pg (28.0-32.0); MEAN PLATELET VOLUME 7.4 fl (7.4-10.4); PLATELET 374 x1000/uL (130-400); RED BLOOD CELL COUNT 3.39 mill/uL (4.7-6.1); RED CELL DISTRIBUTION WIDTH 15.3 % (11.6-14.6)
[2020-09-01 06:50] LABS: CHLORIDE 98 mEq/L (98-107)
[2020-09-01 08:00] VITALS: BP 77/47
[2020-09-01] MEDS: FAMOTIDINE 20MG TABLET PO SCH (09:00)
[2020-09-01] MEDS: ASCORBIC ACID 500 MG TABLET PO SCH ×2 (09:00→21:25)
[2020-09-01] MEDS: ZINC SULFATE 220 MG ( 50 ) CAPSULE PO SCH (10:36)
[2020-09-01] MEDS: SEVELAMER CARBONATE 800 MG TABLET PO SCH ×3 (10:36→19:54)
[2020-09-01] MEDS: INSULIN LISPRO 100 UNITS/ML SUBCUT SCH ×4 (10:50→21:00)
[2020-09-01 12:00] VITALS: BP 89/44
[2020-09-01 14:13] LABS: PLATELET ESTIMATE NORMAL
[2020-09-01 16:00] VITALS: BP 99/53
[2020-09-01] MEDS: ENOXAPARIN 30MG/0.3ML SYR SUBCUT SCH (19:54)
[2020-09-01 20:00] VITALS: BP 104/57
[2020-09-02] VITALS: BP 96/52
[2020-09-02 04:00] VITALS: BP 102/54
[2020-09-02] MEDS: NITROGLYCERIN OINT 1GM/INCH UDPKT TD SCH (06:00)
[2020-09-02] MEDS: CARVEDILOL 3.125 MG TABLET PO SCH ×2 (06:00→18:51)
[2020-09-02] MEDS: BLOOD SUGAR DIAGNOSTIC STRIP TEST SCH ×4 (07:33→21:00)
[2020-09-02] MEDS: INSULIN LISPRO 100 UNITS/ML SUBCUT SCH ×4 (07:40→22:26)
[2020-09-02 08:00] VITALS: BP 108/52
[2020-09-02] MEDS: ASCORBIC ACID 500 MG TABLET PO SCH ×2 (08:20→22:03)
[2020-09-02] MEDS: FAMOTIDINE 20MG TABLET PO SCH (08:20)
[2020-09-02] MEDS: ZINC SULFATE 220 MG ( 50 ) CAPSULE PO SCH (08:20)
[2020-09-02] MEDS: SEVELAMER CARBONATE 800 MG TABLET PO SCH ×3 (08:20→18:50)
[2020-09-02 16:00] VITALS: BP 113/61
[2020-09-02] MEDS: ENOXAPARIN 30MG/0.3ML SYR SUBCUT SCH (18:51)
[2020-09-02 20:00] VITALS: BP 114/53
[2020-09-02] MEDS ORDERED: NITROGLYCERIN OINT 1GM/INCH UDPKT TD SCH (21:00)
[2020-09-02] MEDS: ACETAMINOPHEN 325MG TABLET PO PRN (22:04)
[2020-09-03] VITALS: BP 93/46
[2020-09-03 04:00] VITALS: BP 88/49
[2020-09-03] MEDS: CARVEDILOL 3.125 MG TABLET PO SCH ×2 (06:00→18:52)
[2020-09-03] MEDS: BLOOD SUGAR DIAGNOSTIC STRIP TEST SCH ×4 (06:10→21:53)
[2020-09-03 07:18] LABS: HEMATOCRIT. 28.1 % (42.0-52.0); HEMOGLOBIN. 9.5 g/dL (14.0-18.0); MEAN CORPUSCULAR HEMOGLOBIN 29.2 pg (28.0-32.0); MEAN PLATELET VOLUME 6.9 fl (7.4-10.4); PLATELET 404 x1000/uL (130-400); RED BLOOD CELL COUNT 3.26 mill/uL (4.7-6.1); RED CELL DISTRIBUTION WIDTH 14.9 % (11.6-14.6)
[2020-09-03 07:25] LABS: CHLORIDE 100 mEq/L (98-107)
[2020-09-03 08:00] VITALS: BP 112/56
[2020-09-03 12:00] VITALS: BP 118/64
[2020-09-03] MEDS: SEVELAMER CARBONATE 800 MG TABLET PO SCH ×3 (12:40→18:51)
[2020-09-03] MEDS: FAMOTIDINE 20MG TABLET PO SCH (12:42)
[2020-09-03] MEDS: ZINC SULFATE 220 MG ( 50 ) CAPSULE PO SCH (12:42)
[2020-09-03] MEDS: ASCORBIC ACID 500 MG TABLET PO SCH ×2 (12:42→21:34)
[2020-09-03] MEDS: NITROGLYCERIN 0.4MG TABLET SL SL PRN (12:42)
[2020-09-03] MEDS: MIDODRINE HCL 5MG TABLET PO SCH ×3 (12:44→17:00)
[2020-09-03] MEDS: INSULIN LISPRO 100 UNITS/ML SUBCUT SCH ×3 (13:06→21:53)
[2020-09-03 13:10] LABS: PLATELET ESTIMATE SLIGHTLY INCREASED
[2020-09-03 16:00] VITALS: BP 125/59
[2020-09-03] MEDS: ENOXAPARIN 30MG/0.3ML SYR SUBCUT SCH (18:51)
[2020-09-03 20:00] VITALS: BP 121/59
[2020-09-03] MEDS: EPOETIN ALFA-EPBX 4,000 UNIT/ML VIAL SUBCUT SCH (21:35)
[2020-09-04 00:32] VITALS: BP 120/57
[2020-09-04] MEDS: CARVEDILOL 3.125 MG TABLET PO SCH ×2 (06:00→17:52)
[2020-09-04] MEDS: BLOOD SUGAR DIAGNOSTIC STRIP TEST SCH ×4 (06:51→20:48)
[2020-09-04] MEDS: INSULIN LISPRO 100 UNITS/ML SUBCUT SCH ×4 (06:51→20:48)
[2020-09-04 08:00] VITALS: BP 109/50
[2020-09-04 09:07] LABS: BASOPHILS % 0.9 % (0.0-2.0); EOSINOPHILS % 8.6 % (0.0-5.0); HEMOGLOBIN. 9.7 g/dL (14.0-18.0); LYMPHOCYTES % 26.5 % (20.0-50.0); MEAN CORPUSCULAR HEMOGLOBIN 29.2 pg (28.0-32.0); MEAN CORPUSCULAR VOLUME 87.5 fL (80.0-94.0); MEAN PLATELET VOLUME 7.3 fl (7.4-10.4); MONOCYTES % 13.9 % (2.0-8.0); NEUTROPHILS % 50.1 % (40.0-76.0); PLATELET 413 x1000/uL (130-400); RED BLOOD CELL COUNT 3.31 mill/uL (4.7-6.1); RED CELL DISTRIBUTION WIDTH 15.3 % (11.6-14.6)
[2020-09-04] MEDS: ASCORBIC ACID 500 MG TABLET PO SCH ×2 (09:08→20:48)
[2020-09-04] MEDS: MIDODRINE HCL 5MG TABLET PO SCH ×3 (09:08→17:52)
[2020-09-04] MEDS: SEVELAMER CARBONATE 800 MG TABLET PO SCH ×3 (09:08→17:52)
[2020-09-04] MEDS: FAMOTIDINE 20MG TABLET PO SCH (09:09)
[2020-09-04] MEDS: ZINC SULFATE 220 MG ( 50 ) CAPSULE PO SCH (09:09)
[2020-09-04] MEDS: ENOXAPARIN 30MG/0.3ML SYR SUBCUT SCH (17:52)
[2020-09-04 20:00] VITALS: BP 97/79
[2020-09-05] MEDS: NITROGLYCERIN 0.4MG TABLET SL SL PRN ×2 (00:24→00:49)
[2020-09-05] MEDS: CARVEDILOL 3.125 MG TABLET PO SCH ×2 (06:05→18:00)
[2020-09-05] MEDS: BLOOD SUGAR DIAGNOSTIC STRIP TEST SCH ×4 (06:05→20:41)
[2020-09-05] MEDS: INSULIN LISPRO 100 UNITS/ML SUBCUT SCH ×4 (07:50→20:41)
[2020-09-05 08:00] VITALS: BP 109/46
[2020-09-05] MEDS: SEVELAMER CARBONATE 800 MG TABLET PO SCH ×3 (08:49→18:26)
[2020-09-05] MEDS: ZINC SULFATE 220 MG ( 50 ) CAPSULE PO SCH (08:49)
[2020-09-05] MEDS: ASCORBIC ACID 500 MG TABLET PO SCH ×2 (08:49→20:40)
[2020-09-05] MEDS: MIDODRINE HCL 5MG TABLET PO SCH ×3 (08:50→18:27)
[2020-09-05] MEDS: FAMOTIDINE 20MG TABLET PO SCH (08:51)
[2020-09-05] MEDS: ENOXAPARIN 30MG/0.3ML SYR SUBCUT SCH (18:27)
[2020-09-05 20:00] VITALS: BP 132/33
[2020-09-06] MEDS: CARVEDILOL 3.125 MG TABLET PO SCH ×2 (05:38→17:10)
[2020-09-06] MEDS: BLOOD SUGAR DIAGNOSTIC STRIP TEST SCH ×4 (06:22→21:31)
[2020-09-06] MEDS: INSULIN LISPRO 100 UNITS/ML SUBCUT SCH ×4 (06:23→21:00)
[2020-09-06 08:00] VITALS: BP 123/53
[2020-09-06] MEDS: SEVELAMER CARBONATE 800 MG TABLET PO SCH ×3 (08:48→17:46)
[2020-09-06] MEDS: ZINC SULFATE 220 MG ( 50 ) CAPSULE PO SCH (08:48)
[2020-09-06] MEDS: FAMOTIDINE 20MG TABLET PO SCH (08:49)
[2020-09-06] MEDS: MIDODRINE HCL 5MG TABLET PO SCH ×3 (08:49→17:46)
[2020-09-06] MEDS: ASCORBIC ACID 500 MG TABLET PO SCH ×2 (08:49→21:37)
[2020-09-06 12:00] VITALS: BP 111/35
[2020-09-06 16:00] VITALS: BP 133/48
[2020-09-06] MEDS: ENOXAPARIN 30MG/0.3ML SYR SUBCUT SCH (17:45)
[2020-09-06 20:00] VITALS: BP 115/50
[2020-09-06] MEDS: ACETAMINOPHEN 325MG TABLET PO PRN (23:59)
[2020-09-07] MEDS: EPOETIN ALFA-EPBX 4,000 UNIT/ML VIAL SUBCUT SCH (04:30)
[2020-09-07] MEDS: BLOOD SUGAR DIAGNOSTIC STRIP TEST SCH ×4 (06:46→21:00)
[2020-09-07] MEDS: CARVEDILOL 3.125 MG TABLET PO SCH ×2 (07:10→17:22)
[2020-09-07] MEDS: INSULIN LISPRO 100 UNITS/ML SUBCUT SCH ×4 (07:50→22:14)
[2020-09-07 08:06] VITALS: BP 122/50
[2020-09-07] MEDS: FAMOTIDINE 20MG TABLET PO SCH (09:55)
[2020-09-07] MEDS: ASCORBIC ACID 500 MG TABLET PO SCH ×2 (09:56→22:07)
[2020-09-07] MEDS: SEVELAMER CARBONATE 800 MG TABLET PO SCH ×3 (09:56→17:21)
[2020-09-07] MEDS: MIDODRINE HCL 5MG TABLET PO SCH ×3 (09:56→17:00)
[2020-09-07] MEDS: ZINC SULFATE 220 MG ( 50 ) CAPSULE PO SCH (10:00)
[2020-09-07] MEDS: ENOXAPARIN 30MG/0.3ML SYR SUBCUT SCH (17:22)
[2020-09-07 20:00] VITALS: BP 115/48
[2020-09-08] MEDS: CARVEDILOL 3.125 MG TABLET PO SCH ×2 (06:15→18:10)
[2020-09-08] MEDS: BLOOD SUGAR DIAGNOSTIC STRIP TEST SCH ×4 (06:15→21:49)
[2020-09-08 08:00] VITALS: BP 116/45
[2020-09-08] MEDS: FAMOTIDINE 20MG TABLET PO SCH (08:28)
[2020-09-08] MEDS: MIDODRINE HCL 5MG TABLET PO SCH ×3 (08:28→18:11)
[2020-09-08] MEDS: ASCORBIC ACID 500 MG TABLET PO SCH ×2 (08:28→21:47)
[2020-09-08] MEDS: ZINC SULFATE 220 MG ( 50 ) CAPSULE PO SCH (08:28)
[2020-09-08] MEDS: INSULIN LISPRO 100 UNITS/ML SUBCUT SCH ×4 (08:37→21:49)
[2020-09-08] MEDS: SEVELAMER CARBONATE 800 MG TABLET PO SCH ×3 (08:39→18:09)
[2020-09-08] MEDS: ENOXAPARIN 30MG/0.3ML SYR SUBCUT SCH (18:11)
[2020-09-08 20:00] VITALS: BP 137/41
[2020-09-08] MEDS: EPOETIN ALFA-EPBX 4,000 UNIT/ML VIAL SUBCUT SCH (21:49)
[2020-09-09] MEDS: NITROGLYCERIN 0.4MG TABLET SL SL PRN ×2 (03:05→03:28)
[2020-09-09] MEDS: CARVEDILOL 3.125 MG TABLET PO SCH ×2 (06:00→18:13)
[2020-09-09] MEDS: BLOOD SUGAR DIAGNOSTIC STRIP TEST SCH ×4 (06:12→21:00)
[2020-09-09] MEDS: INSULIN LISPRO 100 UNITS/ML SUBCUT SCH ×3 (07:29→16:48)
[2020-09-09 08:00] VITALS: BP 132/55
[2020-09-09] MEDS: SEVELAMER CARBONATE 800 MG TABLET PO SCH ×3 (08:43→18:06)
[2020-09-09] MEDS: MIDODRINE HCL 5MG TABLET PO SCH ×3 (08:45→17:00)
[2020-09-09] MEDS: ASCORBIC ACID 500 MG TABLET PO SCH ×2 (08:45→22:56)
[2020-09-09] MEDS: ZINC SULFATE 220 MG ( 50 ) CAPSULE PO SCH (09:00)
[2020-09-09] MEDS: FAMOTIDINE 20MG TABLET PO SCH (09:00)
[2020-09-09 12:00] VITALS: BP 153/59
[2020-09-09 16:04] LABS: EOSINOPHILS % 7.7 % (0.0-5.0); HEMATOCRIT. 31.5 % (42.0-52.0); HEMOGLOBIN. 10.4 g/dL (14.0-18.0); MEAN CORPUSCULAR HEMOGLOBIN 28.6 pg (28.0-32.0); MEAN CORPUSCULAR VOLUME 86.2 fL (80.0-94.0); MEAN PLATELET VOLUME 7.1 fl (7.4-10.4); MONOCYTES % 11.4 % (2.0-8.0); NEUTROPHILS % 57.9 % (40.0-76.0); PLATELET 394 x1000/uL (130-400); RED BLOOD CELL COUNT 3.65 mill/uL (4.7-6.1); RED CELL DISTRIBUTION WIDTH 15.5 % (11.6-14.6)
[2020-09-09] MEDS: ENOXAPARIN 30MG/0.3ML SYR SUBCUT SCH (18:15)
[2020-09-09 20:00] VITALS: BP 113/83
[2020-09-10] MEDS: INSULIN LISPRO 100 UNITS/ML SUBCUT SCH ×3 (00:05→12:37)
[2020-09-10 06:00] VITALS: BP 106/47
[2020-09-10] MEDS: CARVEDILOL 3.125 MG TABLET PO SCH (06:00)
[2020-09-10] MEDS: BLOOD SUGAR DIAGNOSTIC STRIP TEST SCH ×2 (06:35→12:45)
[2020-09-10 08:00] VITALS: BP 100/45
[2020-09-10] MEDS: ZINC SULFATE 220 MG ( 50 ) CAPSULE PO SCH (08:37)
[2020-09-10] MEDS: ASCORBIC ACID 500 MG TABLET PO SCH (08:37)
[2020-09-10] MEDS: SEVELAMER CARBONATE 800 MG TABLET PO SCH ×2 (08:37→12:36)
[2020-09-10] MEDS: FAMOTIDINE 20MG TABLET PO SCH (08:37)
[2020-09-10] MEDS: MIDODRINE HCL 5MG TABLET PO SCH ×2 (08:38→12:36)
[2020-09-10 10:18] VITALS: BP 100/60
== END 2020-09-10 15:01 | DRG 205 ==
LOC: ER 12:40 → MICUSO 14:21 → EDBEDREQ 14:33 → 8WST 08-31 13:50 → 6WST 09-03 23:20
PROVIDERS: ADMIT Internal Medicine; ATTEND Internal Medicine
PROC: 5A1D70Z Performance of Urinary Filtration, Intermittent, Less than 6 Hours Per Day (ICD-10-PCS; principal; 2020-09-01)
PROC: 5A1D70Z Performance of Urinary Filtration, Intermittent, Less than 6 Hours Per Day (ICD-10-PCS; 2020-09-03)
PROC: 5A1D70Z Performance of Urinary Filtration, Intermittent, Less than 6 Hours Per Day (ICD-10-PCS; 2020-09-06)
PROC: 5A1D70Z Performance of Urinary Filtration, Intermittent, Less than 6 Hours Per Day (ICD-10-PCS; 2020-09-08)
DX: M94.0 Chondrocostal junction syndrome [Tietze] (principal); U07.1 COVID-19; N18.6 End stage renal disease; E87.1 Hypo-osmolality and hyponatremia; E44.0 Moderate protein-calorie malnutrition; I12.0 Hypertensive chronic kidney disease with stage 5 chronic kidney disease or end stage renal disease; E11.22 Type 2 diabetes mellitus with diabetic chronic kidney disease; D63.8 Anemia in other chronic diseases classified elsewhere; E78.5 Hyperlipidemia, unspecified; J44.9 Chronic obstructive pulmonary disease, unspecified; I95.3 Hypotension of hemodialysis; E11.40 Type 2 diabetes mellitus with diabetic neuropathy, unspecified; G40.909 Epilepsy, unspecified, not intractable, without status epilepticus; G90.8 Other disorders of autonomic nervous system; E11.51 Type 2 diabetes mellitus with diabetic peripheral angiopathy without gangrene; I87.8 Other specified disorders of veins; N35.919 Unspecified urethral stricture, male, unspecified site; K21.9 Gastro-esophageal reflux disease without esophagitis; N40.1 Benign prostatic hyperplasia with lower urinary tract symptoms; N28.1 Cyst of kidney, acquired; Z99.2 Dependence on renal dialysis; Z88.6 Allergy status to analgesic agent; Z79.4 Long term (current) use of insulin; Z79.899 Other long term (current) drug therapy; Z82.3 Family history of stroke; Z82.49 Family history of ischemic heart disease and other diseases of the circulatory system; Z86.73 Personal history of transient ischemic attack (TIA), and cerebral infarction without residual deficits; Z98.1 Arthrodesis status; Z86.16 Personal history of COVID-19; Z87.01 Personal history of pneumonia (recurrent); R00.0 Tachycardia, unspecified; E83.51 Hypocalcemia; E11.65 Type 2 diabetes mellitus with hyperglycemia
CPT/HCPCS: 36415; 71045; 71275; 80048; 80053; 80061; 82550; 82553; 82962; 83036; 83880; 84484; 85025; 85379; 87426; 93005; 93970; 99285; J0885; J1650; J1815; J2270; Q9967

== ENCOUNTER 2021-06-23 10:30 | Inpatient (IN) | payer MEDICARE, MEDICAID ==
[~2021-06-23] VITALS: Ht 175.3 cm; Wt 61.0 kg
[2021-06-23] MEDS ORDERED: ACETAMINOPHEN 325MG TABLET PO STA (10:59)
[2021-06-23 12:23] LABS: BASOPHILS % 0.6 % (0.0-2.0); EOSINOPHILS % 1.6 % (0.0-5.0); HEMATOCRIT. 32.9 % (42.0-52.0); LYMPHOCYTES % 8.9 % (20.0-50.0); MEAN CORPUSCULAR HEMOGLOBIN 31.2 pg (28.0-32.0); MEAN PLATELET VOLUME 8.3 fl (7.4-10.4); NEUTROPHILS % 81.9 % (40.0-76.0); PLATELET 418 x1000/uL (130-400); RED BLOOD CELL COUNT 3.53 mill/uL (4.7-6.1); RED CELL DISTRIBUTION WIDTH 15.6 % (11.6-14.6)
[2021-06-23 12:37] LABS: CHLORIDE 97 mEq/L (98-107)
[2021-06-23] MEDS ORDERED: ENOXAPARIN 40MG/0.4ML SYR SUBCUT SCH (15:15)
[2021-06-23] MEDS ORDERED: ACETAMINOPHEN 325MG TABLET PO PRN ×2 (15:15)
[2021-06-23] MEDS ORDERED: ONDANSETRON HCL 4MG/2ML INJ IV PRN (15:15)
[2021-06-23] MEDS ORDERED: NITROGLYCERIN 0.4MG TABLET SL SL PRN (15:15)
[2021-06-23] MEDS ORDERED: MAGNESIUM/ALUMINUM HYDROXIDE/SIMETHICONE 30ML UDC PO PRN (15:15)
[2021-06-23] MEDS ORDERED: CLONIDINE 0.1MG TABLET PO PRN (15:15)
[2021-06-23] MEDS ORDERED: GUAIFENESIN 200MG/10ML SUGAR FREE UDC PO PRN (15:15)
[2021-06-23] MEDS ORDERED: IPRATROPIUM/ALBUTEROL 0.5-3(2.5)MG/3ML NEB NEB PRN (15:15)
[2021-06-23] MEDS ORDERED: DOCUSATE SODIUM 100MG CAPSULE PO PRN (15:15)
[2021-06-23 15:44] LABS: T4 FREE 1.28 ng/dL (0.76-1.46)
[2021-06-23] MEDS ORDERED: INSULIN REGULAR (HUMULIN R) 300UNITS/3ML VIAL SUBCUT ONE (15:45)
[2021-06-23 16:04] LABS: FOLIC ACID (FOLATE) SERUM > 20.00 ng/mL (>5.38)
[2021-06-23 16:07] LABS: VITAMIN B12 SERUM 617 pg/mL (211-911)
[2021-06-23] MEDS: ENOXAPARIN 30MG/0.3ML SYR SUBCUT SCH (19:45)
[2021-06-23] MEDS: SEVELAMER CARBONATE 800 MG TABLET PO SCH (19:45)
[2021-06-23] MEDS ORDERED: ZOLPIDEM TARTRATE 5MG TABLET PO PRN (21:00)
[2021-06-23] MEDS: FAMOTIDINE 20MG TABLET PO SCH (21:19)
[2021-06-23] MEDS: ASCORBIC ACID 500 MG TABLET PO SCH (21:19)
[2021-06-23 23:41] VITALS: BP 121/77
[2021-06-23 23:59] LABS: CREATINE KINASE 65 IU/L (39-308)
[2021-06-24] VITALS: BP 131/77
[2021-06-24] LABS: CREATINE KINASE MB FRACTION 1.1 ng/mL (0.5-3.6)
[2021-06-24 04:00] VITALS: BP 117/72
[2021-06-24] MEDS: SEVELAMER CARBONATE 800 MG TABLET PO SCH ×3 (06:10→16:44)
[2021-06-24 08:00] VITALS: BP 121/66
[2021-06-24] MEDS: ZINC SULFATE 220 MG ( 50 ) CAPSULE PO SCH (08:18)
[2021-06-24] MEDS: CHOLECALCIFEROL (D3) 1000 UNIT TABLET PO SCH (08:18)
[2021-06-24] MEDS: CLOPIDOGREL 75MG TABLET PO SCH (08:18)
[2021-06-24] MEDS: ASCORBIC ACID 500 MG TABLET PO SCH ×2 (08:18→21:12)
[2021-06-24] MEDS ORDERED: ASPIRIN 325MG EC TABLET PO SCH (09:00)
[2021-06-24 10:18] LABS: BASOPHILS % 1.4 % (0.0-2.0); EOSINOPHILS % 9.2 % (0.0-5.0); HEMATOCRIT. 30.8 % (42.0-52.0); HEMOGLOBIN. 10.3 g/dL (14.0-18.0); LYMPHOCYTES % 24.5 % (20.0-50.0); MEAN CORPUSCULAR HEMOGLOBIN 30.6 pg (28.0-32.0); MEAN CORPUSCULAR VOLUME 91.7 fL (80.0-94.0); MEAN PLATELET VOLUME 8.2 fl (7.4-10.4); NEUTROPHILS % 53.9 % (40.0-76.0); PLATELET 450 x1000/uL (130-400); RED BLOOD CELL COUNT 3.36 mill/uL (4.7-6.1); RED CELL DISTRIBUTION WIDTH 15.6 % (11.6-14.6)
[2021-06-24 10:46] LABS: CREATINE KINASE 43 IU/L (39-308)
[2021-06-24 10:48] LABS: CREATINE KINASE MB FRACTION 1.2 ng/mL (0.5-3.6)
[2021-06-24 11:15] LABS: CHLORIDE 98 mEq/L (98-107)
[2021-06-24 11:25] LABS: PHOSPHORUS 3.2 mg/dL (2.5-4.9)
[2021-06-24 11:42] LABS: HEPATITIS B SURFACE ANTIGEN NEGATIVE
[2021-06-24 12:00] VITALS: BP 137/75
[2021-06-24 16:00] VITALS: BP 146/61
[2021-06-24] MEDS: ENOXAPARIN 30MG/0.3ML SYR SUBCUT SCH (16:45)
[2021-06-24 20:00] VITALS: BP 131/66
[2021-06-24] MEDS: FAMOTIDINE 20MG TABLET PO SCH (21:11)
[2021-06-25] VITALS: BP 136/70
[2021-06-25 04:00] VITALS: BP 123/50
[2021-06-25 08:00] VITALS: BP 127/57
[2021-06-25] MEDS: ASCORBIC ACID 500 MG TABLET PO SCH ×2 (08:24→20:40)
[2021-06-25] MEDS: SEVELAMER CARBONATE 800 MG TABLET PO SCH ×3 (08:24→18:11)
[2021-06-25] MEDS: ZINC SULFATE 220 MG ( 50 ) CAPSULE PO SCH (08:25)
[2021-06-25] MEDS: CHOLECALCIFEROL (D3) 1000 UNIT TABLET PO SCH (08:25)
[2021-06-25] MEDS: CLOPIDOGREL 75MG TABLET PO SCH (08:25)
[2021-06-25 12:00] VITALS: BP 141/73
[2021-06-25 16:00] VITALS: BP 137/59
[2021-06-25] MEDS: ENOXAPARIN 30MG/0.3ML SYR SUBCUT SCH (18:11)
[2021-06-25 20:00] VITALS: BP 125/64
[2021-06-25] MEDS: FAMOTIDINE 20MG TABLET PO SCH (20:40)
[2021-06-26] VITALS: BP 131/76
[2021-06-26 04:00] VITALS: BP 140/72
[2021-06-26 08:00] VITALS: BP 148/81
[2021-06-26] MEDS: CLOPIDOGREL 75MG TABLET PO SCH (08:38)
[2021-06-26] MEDS: CHOLECALCIFEROL (D3) 1000 UNIT TABLET PO SCH (08:38)
[2021-06-26] MEDS: ASCORBIC ACID 500 MG TABLET PO SCH ×2 (08:38→20:54)
[2021-06-26] MEDS: ZINC SULFATE 220 MG ( 50 ) CAPSULE PO SCH (08:38)
[2021-06-26] MEDS: SEVELAMER CARBONATE 800 MG TABLET PO SCH ×3 (08:38→17:30)
[2021-06-26 12:00] VITALS: BP 126/75
[2021-06-26] MEDS: ENOXAPARIN 30MG/0.3ML SYR SUBCUT SCH (15:43)
[2021-06-26 16:00] VITALS: BP 151/70
[2021-06-26 20:00] VITALS: BP 151/79
[2021-06-26] MEDS: FAMOTIDINE 20MG TABLET PO SCH (20:54)
[2021-06-27] VITALS (7 sets, daily range): BP systolic 107–148; BP diastolic 59–82
[2021-06-27 06:24] LABS: EOSINOPHILS % 7.1 % (0.0-5.0); HEMATOCRIT. 30.1 % (42.0-52.0); HEMOGLOBIN. 9.9 g/dL (14.0-18.0); LYMPHOCYTES % 22.4 % (20.0-50.0); MEAN CORPUSCULAR HEMOGLOBIN 30.2 pg (28.0-32.0); MEAN CORPUSCULAR VOLUME 91.4 fL (80.0-94.0); MEAN PLATELET VOLUME 8.1 fl (7.4-10.4); NEUTROPHILS % 57.5 % (40.0-76.0); PLATELET 433 x1000/uL (130-400); RED BLOOD CELL COUNT 3.29 mill/uL (4.7-6.1); RED CELL DISTRIBUTION WIDTH 15.7 % (11.6-14.6)
[2021-06-27] MEDS: SEVELAMER CARBONATE 800 MG TABLET PO SCH ×3 (07:11→16:56)
[2021-06-27] MEDS: ZINC SULFATE 220 MG ( 50 ) CAPSULE PO SCH (09:16)
[2021-06-27] MEDS: CHOLECALCIFEROL (D3) 1000 UNIT TABLET PO SCH (09:16)
[2021-06-27] MEDS: CLOPIDOGREL 75MG TABLET PO SCH (09:16)
[2021-06-27] MEDS: ASCORBIC ACID 500 MG TABLET PO SCH (09:16)
[2021-06-27] MEDS: ENOXAPARIN 30MG/0.3ML SYR SUBCUT SCH (16:56)
== END 2021-06-27 20:48 | DRG 91 ==
LOC: ER 10:30 → MICUSO 14:53 → 7EST 22:28
PROVIDERS: ADMIT Internal Medicine; ATTEND Internal Medicine
PROC: 5A1D70Z Performance of Urinary Filtration, Intermittent, Less than 6 Hours Per Day (ICD-10-PCS; 2021-06-24)
PROC: 5A1D70Z Performance of Urinary Filtration, Intermittent, Less than 6 Hours Per Day (ICD-10-PCS; principal; 2021-06-27)
DX: G92.8 Other toxic encephalopathy (principal); E11.00 Type 2 diabetes mellitus with hyperosmolarity without nonketotic hyperglycemic-hyperosmolar coma (NKHHC); N18.6 End stage renal disease; I12.0 Hypertensive chronic kidney disease with stage 5 chronic kidney disease or end stage renal disease; E44.1 Mild protein-calorie malnutrition; Z68.1 Body mass index [BMI] 19.9 or less, adult; D63.8 Anemia in other chronic diseases classified elsewhere; E11.22 Type 2 diabetes mellitus with diabetic chronic kidney disease; E11.40 Type 2 diabetes mellitus with diabetic neuropathy, unspecified; E78.5 Hyperlipidemia, unspecified; N40.0 Benign prostatic hyperplasia without lower urinary tract symptoms; K21.9 Gastro-esophageal reflux disease without esophagitis; E11.51 Type 2 diabetes mellitus with diabetic peripheral angiopathy without gangrene; E78.00 Pure hypercholesterolemia, unspecified; G40.909 Epilepsy, unspecified, not intractable, without status epilepticus; J44.9 Chronic obstructive pulmonary disease, unspecified; Z86.73 Personal history of transient ischemic attack (TIA), and cerebral infarction without residual deficits; Z99.2 Dependence on renal dialysis; Z88.6 Allergy status to analgesic agent; Z98.1 Arthrodesis status; Z86.16 Personal history of COVID-19; Z87.01 Personal history of pneumonia (recurrent)
CPT/HCPCS: 36415; 71045; 80048; 80053; 80061; 82550; 82553; 82607; 82746; 82962; 83615; 83735; 83930; 84100; 84439; 84443; 84484; 85025; 86705; 86709; 86803; 87340; 93005; 93970; 99285; J1650; J1815